=== PATIENT | male | born 1945 ===

== ENCOUNTER 2020-11-03 15:00 | Outpatient (RCR) | payer MEDICARE, SELFPAY ==
--- NOTE | 2020-10-04 15:10 | MHC.PT.EP ---
[facility] [place] [facility] [address] Alyce Johnson [address] [phone] F: [phone] F: [phone] F: [phone] F: [phone] Physical Therapy Plan of Care Date of Evaluation: 10/04/20 Diagnosis: B knee OA Assessment: 74 y/o male referred to PT with primary knee osteoarthritis L and R knee. He has had B knee pain for over one year and was dx with OA. Of note, he was diagnosed with prostate CA one year ago and just finished treatment one week ago. Pain is located B anterior knees. Pain and difficulty with walking, ascending/descending stairs, donning/doffing shoes. He lives at home alone in an apartment with stairs and elevator. His daughter helps with meals, production support supervisor, laundry, and appointments. She is his care proxy and present for evaluation and assists with interpreting. Examination shows decreased L knee AROM, decreased hip/core strength, mild quad lag with L SLR, hypomobile L patella mobility, and impaired gait pattern. Recommend PT 2x/week for 5 weeks to address impairments, implement HEP, and optimize functional mobility. Frequency and Duration: The patient will be seen 2x/week for 5 weeks Short Term Goals: 3 weeks: 1. I with HEP 2. Improve B knee flexion to 115 3. Improve L SLR to have no quad lag 10/10x Care Home Goals: 5 weeks: 1. I with HEP and self management of sx 2. Pt will be able to walk > 20min wiht LRAD 3. Pt will be able to don/doff shoes with pain < 3/10 Treatment Plan: Modalities to reduce pain, spasms and effusion. Manual therapy to restore motion and function. Therapeutic exercise to improve strength and flexibility. Neuromuscular re-education for posture and balance. Therapeutic activities to return to functional activities of daily living. Please sign and return to therapist. Thank you for your referral.
--- NOTE | 2020-11-03 15:48 | MHC.PT.DC ---
Physical Therapy Discharge Report Diagnosis: B knee OA Date of Evaluation: 10/04/20 Date of Discharge: 11/03/20 Treatments to Date: 8 Cancellations to Date: 0 No Shows to Date: 0 Discharge Status: Independent with HEP Discharge Summary: Pt reports he is ready for discharge and will continue to perform HEP. His L knee AROM is 0-5-107 and he had improved quad/HS strength now, however he continues to have difficulty with endurance - he is now able to walk 15 minutes but no more due to fatigue. He also continues to need assistance with don/doffing shoes per his daughter. He has an evaluation for a scooter next week in order to help him move better within the community and longer distances safely. No further questions and he is d/c to I HEP. Electronically signed by: Zoey Berry PT Please sign and return to therapist. Thank you for your referral.
== END 2020-11-03 16:04 | disposition other institution (70) ==
LOC: HO.PT 15:00
PROVIDERS: PCP Internal Medicine; Visit Provider Orthopaedic Surgery
DX: M17.0 Bilateral primary osteoarthritis of knee (principal)
CPT/HCPCS: 97110; 97162

== ENCOUNTER 2020-11-22 08:39 | Outpatient (REF) | payer MEDICARE, SELFPAY ==
--- NOTE | 2020-11-22 08:42 | CT_ITS ---
EXAMINATION: CT ABDOMEN AND PELVIS WITHOUT CONTRAST CLINICAL INFORMATION: Prostate cancer COMPARISON: Previous CT of the abdomen and pelvis most recent July 2020 TECHNIQUE: Multidetector volumetric imaging was performed from the superior aspect of the liver through the pubic symphysis. Sagittal and coronal reformatted images were obtained on the technologist's workstation. This CT examination was performed using dose optimization techniques as appropriate, variously including the following: *Automated exposure control *Adjustment of mA and/or kV according to patient size (this includes techniques or standardized protocols for targeted exams where dose is matched to indication/reason for exam; i.e. extremities or head) *Use of iterative reconstruction technique DLP: 705 mGy-cm FINDINGS: LUNG BASES: The visualized lung bases are unremarkable. LIVER, GALLBLADDER, AND BILIARY TREE: The liver is normal in size, shape, and attenuation. No focal hepatic lesion. There are gallstones in the gallbladder. There is no intra or extrahepatic biliary duct dilatation. There are 2 stones in the distal common bile duct largest measuring 3 x 5 mm. PANCREAS: There are atrophic changes or fatty infiltration of the head of the pancreas. The pancreas is otherwise unremarkable. SPLEEN: Unremarkable. ADRENAL GLANDS: Unremarkable. KIDNEYS AND URETERS: The kidneys are normal in size, shape, and attenuation. No hydronephrosis, hydroureter, or calculi seen. No perinephric stranding. BLADDER: Not optimally distended. There may be mild bladder wall thickening. GASTROINTESTINAL TRACT: There is mild diverticulosis of the colon. Small and large bowel is otherwise unremarkable. The appendix is unremarkable. The stomach is unremarkable. ABDOMINAL WALL: There is an umbilical hernia containing fat. LYMPH NODES: Normal. VASCULAR: Unremarkable. PELVIC VISCERA: There are radiation seeds in the prostate gland. OSSEOUS STRUCTURES: There are degenerative changes of the spine, sacroiliac joints and hip joints. CT/CT abdomen pelvis wo con IMPRESSION: Radiation seeds in the prostate gland. No lymphadenopathy. Gallstones and common bile duct stones. Mild diverticulosis of the colon.
== END 2020-11-22 08:40 | disposition home or self-care (01) ==
LOC: HO.CT 08:39
PROVIDERS: Visit Provider Urology
DX: C61 Malignant neoplasm of prostate (principal)
CPT/HCPCS: 74176

== ENCOUNTER → 2021-02-07 14:25 | Outpatient (BNVA) | payer MEDICARE, SELFPAY | PROVIDERS: PCP Internal Medicine; Visit Provider Nurse Practitioner | DX: K80.20 Calculus of gallbladder without cholecystitis without obstruction (principal); D12.6 Benign neoplasm of colon, unspecified | CPT/HCPCS: Q3014 ==

== ENCOUNTER 2021-03-24 10:05 | Day surgery (SDC) | payer MEDICARE, SELFPAY ==
[2021-03-15 08:37] VITALS: BMI 32.8
[2021-03-24 10:22] VITALS: BP 129/73; PULSE 85; RESP 18; TEMP 36.1; O2SAT 99
[2021-03-24 10:34] LABS: Glucose, Whole Blood 121 mg/dL (60-115)
--- NOTE | 2021-03-24 10:38 | P.CONAN_ITS ---
[facility] Active Problems Active Problems: All Active Problems (Updated 03/14/21 @ 15:08 by Jess hauser) DMII (diabetes mellitus, type 2) (Acute) Prostate cancer (Acute) Tubulovillous adenoma of colon (Acute) Gallstones (Acute) Pure hypercholesterolemia (Acute) Essential hypertension (Acute) Past Medical History Medical History Diabetes Essential hypertension History of prostate cancer Pure hypercholesterolemia Family History Family History Father Murder Mother No problems noted. Daughter Healthy adult Brother No problems noted. Sister No problems noted. Son No problems noted. Surgical History Surgical History History of colonoscopy Social History Social History Smoking Status: Never smoker Use of substances other than those prescribed or required for medical reasons: No Advance Directives: No Advance Directives Information Provided: Yes Meds Allergies Allergy/AdvReac Type Severity Reaction Status Date / Time No Known Allergies Allergy Verified 03/24/21 10:30 [No Known Allergies*] Exam Exam Date and Time: March 24, 2021 1038 Height,Weight and Vital Signs: Height 5 ft 8 in Weight 97.976 kg Last Vital Signs Temp 96.9 F 03/24/21 10:22 Pulse 85 03/24/21 10:22 Resp 18 03/24/21 10:22 BP 129/73 03/24/21 10:22 Pulse Ox 99 03/24/21 10:22 Pertinent Lab Results Pertinent Lab Results: Laboratory Tests 03/24/21 10:31 POC Glucose 121 H Airway Mallampati Class: II (Edentulous) TM Dist: >3cm Neck ROM: Full Denture: Upper and Lower Loose/Missing/Broken Teeth: Yes, Upper and Lower Heart: RRR Lungs: CTA Assessment and Plan Assessment Anesthesia Assessment: Anesthesia Plan Discussed and Chart Reviewed Final Anesthetic Review NPO: Yes ASA Class: II Final Preanesthetic Review: Meds/Allgs Chart Reviewed, Consent Obtained/Reviewed and Anes Risks/Benef Reviewed Patient Risk: Low Procedure Risk: Low Anesthetic Plan Anesthetic Plan: MAC: Disposition: Standard PACU
--- NOTE | 2021-03-24 11:18 | PM.OP ---
Brief Operative Note Date of Service: 03/24/21 Pre-op diagnosis: Colon cancer screening, history of colon polyps Post-op diagnosis: other (Colon polyp, diverticulosis, hemorrhoids, radiation proctitis) Procedure: COLONOSCOPY TO CECUM WITH SNARE POLYPECTOMY AND SUBMUCOSAL INJECTION Consent: Indications for the procedure and potential complications of bleeding, perforation, reaction to medications and missed diagnosis were discussed with the patient and informed consent was obtained. Instrument: Olympus PCF H 190 L variable stiffness pediatric colonoscope Monitoring: Vital signs and clinical assessment, intermittent blood pressure monitoring, continuous EKG monitoring, Pulse oximetry and Carbon Dioxide monitoring were done throughout the procedure. Colon withdrawl time was 17 minutes. Procedure: The patient was placed in the left lateral decubitis position and pre-procedure medications were administered. After a digital rectal examination of the ano-rectum, the video colonoscope was inserted into the rectum and advanced through the colon to the cecum. The colonoscope was slowly withdrawn in a retrograde panoramic fashion and the colon mucosa was carefully examined including a retroflexed view of the rectum. Findings and interventions are described below. Procedure Difficulty: Without difficulty Findings: Terminal Ileum: Not evaluated Cecum: A 10-12 mm sessile polyp raised with 4 cc of Orise solution (submucosal injection) and removed with a hot snare. 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 Plan: Await pathology results Patient has an appointment on 04/07/21 in the GI Clinic with Jackie Carroll NP . Repeat Colonoscopy interval based on path results - in 3 years if polyps are adenomatous and due to a history of adenomatous colon polyps. If pt develops rectal bleeding in the future, area of radiation proctitis can be treated with APC. Above findings were reviewed with the patient and colon polyps and diverticulosis handouts were given in the discharge area Surgeon: Henri San MD Anesthesia: MAC (Dr Monique) Pattern And Chain Maker: Jonathan Wilkins Estimated blood loss (mL): 0 Pathology: other (A- CECUM POLYP O-RISE USED.) Condition: stable Disposition: PACU
--- NOTE | 2021-03-24 11:18 | MHC.SHP ---
Pre-Procedural Eval Section A The patient is an INPATIENT: No The History & Physical has been completed within 30 days and I have reviewed it.: No Section B Chief Complaint: Tubulovillous Adenoma of Colon Details of Present Illness: Colon cancer screening, history of colon polyps Relevant Family History (Specify if Yes): No Relevant Social History: None Present Medications: see Short Stay Collaborative assessment Medical History: Significant History (Essential hypertension Pure hypercholesterolemia) History of Previous Operations: Relevant previous surgery/procedure and date(s) (Hx of colonoscopy) Allergies: Allergies Allergy/AdvReac Type Severity Reaction Status Date / Time No Known Allergies Allergy Verified 03/24/21 10:30 [No Known Allergies*] Review of Systems Sugical H&P ROS: Negative: Constitution, Cardiovascular, Respiratory and Gastrointestinal Exam Surgical H&P Exam: Normal: Heart, Normal: Lungs, Normal: Extremities and Normal: Abdomen Plan Diagnosis/Plan: Unchanged I have reviewed the history and physical and performed a pertinent physical examination on my patient. No changes have occurred unless specified.
[2021-03-24] MEDS: Lactated Ringers 1,000 ML 50 ML IV (11:33)
[2021-03-24 12:07] VITALS: BP 91/55; PULSE 73; RESP 18; TEMP 36.7; O2SAT 97
[2021-03-24 12:26] VITALS: BP 91/55; PULSE 64; RESP 16; TEMP 36.1; O2SAT 100
[2021-03-24 12:41] VITALS: BP 111/69; PULSE 72; RESP 18; O2SAT 97
== END 2021-03-24 13:00 | disposition home or self-care (01) ==
PROVIDERS: PCP Internal Medicine; Visit Provider Internal Medicine Gastroenterology
PROC: 0DJD8ZZ Inspection of Lower Intestinal Tract, Via Natural or Artificial Opening Endoscopic (ICD-10-PCS; CPT 45378; principal; 2021-03-24 11:00)
DX: Z12.11 Encounter for screening for malignant neoplasm of colon (principal); D12.0 Benign neoplasm of cecum; K57.30 Diverticulosis of large intestine without perforation or abscess without bleeding; K64.8 Other hemorrhoids; K62.7 Radiation proctitis; Y84.2 Radiological procedure and radiotherapy as the cause of abnormal reaction of the patient, or of later complication, without mention of misadventure at the time of the procedure; Z85.46 Personal history of malignant neoplasm of prostate; Z92.3 Personal history of irradiation; I10 Essential (primary) hypertension; E11.9 Type 2 diabetes mellitus without complications; Z79.84 Long term (current) use of oral hypoglycemic drugs; Z79.899 Other long term (current) drug therapy
CPT/HCPCS: 45385; 45381; 82947; 88305

== ENCOUNTER → 2021-04-07 13:24 | Outpatient (BNVA) | payer MEDICARE, SELFPAY | PROVIDERS: PCP Internal Medicine; Referring Provider Internal Medicine; Visit Provider Nurse Practitioner | DX: D12.6 Benign neoplasm of colon, unspecified (principal); K80.20 Calculus of gallbladder without cholecystitis without obstruction | CPT/HCPCS: 99212 ==

== ENCOUNTER → 2021-05-25 15:25 | Outpatient (BNVA) | payer MEDICARE, SELFPAY | PROVIDERS: Visit Provider Nurse Practitioner | DX: D12.6 Benign neoplasm of colon, unspecified (principal); K80.20 Calculus of gallbladder without cholecystitis without obstruction; K64.9 Unspecified hemorrhoids | CPT/HCPCS: 99202 ==

== ENCOUNTER → 2021-06-16 15:45 | Outpatient (BNVA) | payer MEDICARE, SELFPAY | PROVIDERS: Visit Provider Nurse Practitioner | DX: K64.9 Unspecified hemorrhoids (principal); K80.20 Calculus of gallbladder without cholecystitis without obstruction; D12.6 Benign neoplasm of colon, unspecified; Z79.899 Other long term (current) drug therapy | CPT/HCPCS: Q3014 ==

== ENCOUNTER → 2021-07-14 13:46 | Outpatient (BNVA) | payer MEDICARE, SELFPAY | PROVIDERS: PCP Internal Medicine; Visit Provider Urology | DX: C61 Malignant neoplasm of prostate (principal) | CPT/HCPCS: 99212 ==

== ENCOUNTER 2021-10-04 06:44 | Outpatient (REF) | payer MEDICARE, SELFPAY ==
[2021-10-04 08:20] LABS: Alanine Aminotransferase 37 U/L (0-40); Albumin Level 4.2 g/dL (3.5-5.0); Alkaline Phosphatase 79 U/L (39-117); Anion Gap 14 (12-20); Aspartate Amino Transferase 31 U/L (5-37); Bilirubin Total 1.3 mg/dL (0.0-1.0); Blood Urea Nitrogen 29 mg/dL (9-16); Calcium 9.4 mg/dL (8.4-10.2); Carbon Dioxide 23 mmol/L (22-29); Chloride 104 mmol/L (96-108); Cholesterol 185 mg/dL; Estimated Glomerular Filt Rate > 60; Glucose Fasting 196 mg/dL (60-99); HDL Cholesterol 58 mg/dL; LDL Cholesterol Calculated 111 mg/dl; Potassium 4.4 mmol/L (3.3-5.1); Sodium 137 mmol/L (135-145); Total Protein 7.4 g/dL (6.5-8.0); Triglycerides 82 mg/dL
[2021-10-04 09:38] LABS: Creatinine Urine 70.76 mg/dL; Microalbum/Creatinine Ratio Ur 8.4 ug/mg cr
[2021-10-04 09:52] LABS: Prostate Specific Antigen < 0.05 ng/mL (<0.05-4.0)
[2021-10-09 01:41] LABS: Testosterone, Total 183 ng/dL (250-1100)
[2021-10-09 14:21] LABS: Vitamin D 25-OH, D2 <4 ng/mL; Vitamin D 25-OH, D3 21 ng/mL; Vitamin D 25-OH, Total 21 ng/mL (30-100)
== END 2021-10-04 06:45 | disposition home or self-care (01) ==
LOC: HO.LAB 06:44
PROVIDERS: Absent Provider Urology; PCP Internal Medicine; Visit Provider Internal Medicine
DX: Z12.5 Encounter for screening for malignant neoplasm of prostate (principal); C61 Malignant neoplasm of prostate; E78.5 Hyperlipidemia, unspecified; E11.65 Type 2 diabetes mellitus with hyperglycemia; E55.9 Vitamin D deficiency, unspecified
CPT/HCPCS: 36415; 80053; 80061; 82043; 82306; 84153; 84403

== ENCOUNTER → 2021-10-13 14:47 | Outpatient (BNVA) | payer MEDICARE, SELFPAY | PROVIDERS: PCP Internal Medicine; Visit Provider Urology | DX: C61 Malignant neoplasm of prostate (principal) | CPT/HCPCS: 99212 ==

== ENCOUNTER 2022-02-12 07:43 | Outpatient (REF) | payer MEDICARE, SELFPAY ==
[2022-02-12 09:04] LABS: Alanine Aminotransferase 26 U/L (0-40); Albumin Level 4.1 g/dL (3.5-5.0); Alkaline Phosphatase 76 U/L (39-117); Anion Gap 14 (12-20); Aspartate Amino Transferase 27 U/L (5-37); Bilirubin Total 1.3 mg/dL (0.0-1.0); Blood Urea Nitrogen 21 mg/dL (9-16); Calcium 9.7 mg/dL (8.4-10.2); Carbon Dioxide 25 mmol/L (22-29); Chloride 105 mmol/L (96-108); Cholesterol 140 mg/dL; Estimated Glomerular Filt Rate > 60; Glucose Fasting 186 mg/dL (60-99); HDL Cholesterol 55 mg/dL; LDL Cholesterol Calculated 70 mg/dl; Potassium 4.9 mmol/L (3.3-5.1); Sodium 139 mmol/L (135-145); Total Protein 7.4 g/dL (6.5-8.0); Triglycerides 76 mg/dL
[2022-02-12 09:28] LABS: Prostate Specific Antigen < 0.05 ng/mL (<0.05-4.0)
[2022-02-12 11:29] LABS: Creatinine Urine 68.63 mg/dL; Microalbumin Urine < 5.0 mg/L
[2022-02-16 19:36] LABS: Testosterone, Total 155 ng/dL (250-1100)
== END 2022-02-12 07:44 | disposition home or self-care (01) ==
LOC: HO.LAB 07:43
PROVIDERS: PCP Internal Medicine; Visit Provider Urology
DX: E11.65 Type 2 diabetes mellitus with hyperglycemia (principal); E78.5 Hyperlipidemia, unspecified; C61 Malignant neoplasm of prostate; Z12.5 Encounter for screening for malignant neoplasm of prostate
CPT/HCPCS: 36415; 80053; 80061; 82043; 84153; 84403

== ENCOUNTER → 2022-02-16 14:03 | Outpatient (BNVA) | payer MEDICARE, SELFPAY | PROVIDERS: PCP Internal Medicine; Visit Provider Urology | DX: Z13.89 Encounter for screening for other disorder (principal) | CPT/HCPCS: Q3014 ==

== ENCOUNTER 2022-03-01 01:07 | Emergency (ER) | payer OTHER, SELFPAY ==
--- NOTE | ~2022-03-01 | CT_ITS ---
EXAMINATION: CT ANGIOGRAM NECK AND HEAD CLINICAL INFORMATION: Right-sided arm pain, numbness COMPARISON: None. TECHNIQUE: Initial noncontrast head CT was performed. Test bolus sequences followed by intravenous administration 70 mL of Omnipaque 350. Helical imaging was performed in the axial plane from the thoracic inlet to the skull vertex. Delayed postcontrast imaging of the head was also performed. The data was processed at the biochemistry technologist's workstation for generation of MIP sequences. Angled MIPs and volume rendered reformatted images were also generated at an offline 3D workstation. Stenoses are assessed in accordance with NASCET criteria unless otherwise indicated. DOSE LOWERING TECHNIQUES: This CT examination was performed using dose optimization techniques as appropriate, variously including the following: - Automated exposure control - Adjustment of mA and/or kV according to patient size (this includes techniques or standardized protocols for targeted exams were dose is matched to indication/reason for exam; i.e. extremities or head) - Use of iterative reconstruction technique DLP: 23 1 mGy-cm FINDINGS: Neck CTA: There is a classic 3 vessel branching pattern of the aortic arch. Normal appearance of the visualized aortic arch and proximal branches. No evidence of stenosis at the branch origins. Both vertebral arteries are widely patent throughout their extracranial cervical course. Normal appearance of the common and internal carotid arteries without focal stenosis. Brain CTA: Normal appearance of the intradural vertebral arteries. Normal appearance of the basilar and superior cerebellar arteries. Normally opacified posterior cerebral arteries bilaterally. Normal appearance of the intradural internal carotid arteries without focal stenosis. Normal appearance of the anterior cerebral and middle cerebral arteries without focal occlusion or stenosis. Normal anterior communicating artery. Normal arborization of the middle cerebral arteries. CT Head: No intracranial mass, hemorrhage, extra-axial collection, or midline shift. The giron-white matter differentiation is preserved. There is mild periventricular white matter hypoattenuation consistent with chronic small vessel ischemic disease. Mild volume loss is noted. No pathologic intra-axial enhancement or regional oligemia. No hydrocephalus. Partially opacified right mastoid air cells. The visualized portions of the paranasal sinuses are well-aerated. CT Neck: The thyroid gland and remaining cervical soft tissues are normal in appearance. There is prominent degenerative change at the atlantodens articulation. Mild scattered endplate osteophytes are present in the cervical spine. Upper Chest: No abnormalities in the visualized lung apices or upper mediastinum. CT/CT angio head neck IMPRESSION: 1. No hemodynamically significant stenosis in the major arteries of the neck. No large vessel occlusion or significant stenosis in the intracranial circulation. 2. Mild chronic intracranial small vessel ischemic disease and volume loss.
[2022-03-01 01:14] VITALS: BP 129/67; PULSE 70; RESP 16; TEMP 36.3; O2SAT 96; BMI 34.4
--- NOTE | 2022-03-01 01:28 | PC.NURSE ---
provider into assess pt. pt placed on monitor, poc taken. pt a&o and able to respond questions appropriately during examination.
--- NOTE | 2022-03-01 01:33 | ECG_ITS ---
Test Reason : ARM TINGLING Blood Pressure : / mmHG Vent. Rate : 071 BPM Atrial Rate : 071 BPM P-R Int : 190 ms QRS Dur : 130 ms QT Int : 418 ms P-R-T Axes : 037 -31 030 degrees QTc Int : 454 ms Normal sinus rhythm Left axis deviation Right bundle branch block Abnormal ECG When compared with ECG of 13-AUG-2020 21:57, No significant change was found Referred By: Alla Stewart Electronically Signed By:GAYATHRI CHOE MD
[2022-03-01 01:37] LABS: Glucose, Whole Blood 219 mg/dL (60-115)
[2022-03-01 01:48] LABS: MANUAL DIFF FLAG NO
--- NOTE | 2022-03-01 01:49 | ED.EXTPRO ---
HPI - Extremity Problem General Chief complaint: Extremity Problem Stated complaint: R arm & back pain Time Seen by Provider: 03/01/22 01:33 Source: patient, family and interpreter for the deaf Mode of arrival: ambulatory Limitations: no limitations History of Present Illness MD Complaint: extremity pain Onset (ago): hour(s) (started around 10pm) Pain Consistency: constant Location: left and upper extremity Quality: aching, dull and constant Radiation: none Relieving factors: nothing Exacerbating factors: range of motion and palpation Associated symptoms: other (states he has pain and tingling) Context: other (denies known trauma) Related Data Previous Rx's Medication Instructions Recorded blood-glucose meter (FreeStyle #1 ea 01/16/21 Lite Meter) hydrocortisone 2.5 % topical cream 1 appl VT BID 30 Days #30 g 05/25/21 with perineal applicator (Proctosol HC) metformin 1,000 mg tablet 1,000 mg PO BID #56 tab 08/10/21 lisinopril 5 mg tablet 5 mg PO DAILY 90 Days #90 tab 09/07/21 atorvastatin 10 mg tablet 10 mg PO DAILY #90 tab 11/02/21 linagliptin 5 mg tablet (Tradjenta) 5 mg PO DAILY 90 Days #90 tab 11/02/21 blood sugar diagnostic (FreeStyle 1 strip MISCELLANEOUS TID #100 12/05/21 Lite Strips) strip cholecalciferol (vitamin D3) 25 25 mcg PO DAILY 90 Days #90 cap 12/05/21 mcg (1,000 unit) capsule lancets 28 gauge (FreeStyle #100 ea 12/05/21 Lancets) furosemide 20 mg tablet 20 mg PO Q OTHER DAY 90 Days #45 12/28/21 tab gabapentin 100 mg capsule 100 mg PO DAILY #28 cap 12/28/21 finasteride 5 mg tablet 5 mg PO DAILY 90 Days #90 tab 01/10/22 empagliflozin 25 mg tablet 25 mg PO QAM 90 Days #90 tab 02/22/22 (Jardiance) sitagliptin 100 mg tablet (Januvia) 100 mg PO DAILY #28 tab 02/22/22 hydrocodone 5 mg-acetaminophen 325 1 tab PO Q6H PRN #10 tab 03/01/22 mg tablet lidocaine 5 % topical patch 1 patch TOPICAL DAILY PRN #15 ea 03/01/22 Allergies Allergy/AdvReac Type Severity Reaction Status Date / Time No Known Allergies Allergy Verified 02/16/22 14:03 [No Known Allergies*] Review of Systems Review of Systems: Constitutional : No Fever, No Chills ENT/Mouth : No Ear Pain, No Hoarseness, No sore throat Eyes: No Eye Pain, No Swelling, No Redness, No Foreign Body Cardiovascular : No Chest Pain, No SOB Respiratory : No Cough, No Dyspnea Gastrointestinal : No Nausea, No Vomiting, No Diarrhea, No abdominal Pain Genitourinary : No Dysuria, No Hematuria Musculoskeletal : positive joint pain, pos Myalgias, No Joint Swelling Skin : No Skin lacerations, No rash Neuro : No Weakness, No Numbness, No Loss of Consciousness, No Dizziness, No Headache Psych : No Anxiety/Panic, No Depression Heme/Lymph: no easy bruising, no Lymphadenopathy Endocrine : No Polyuria, No Polydipsia All other systems reviewed and are negative [facility] Past Medical History Medical History Diabetes Essential hypertension History of prostate cancer Hypovitaminosis D Pure hypercholesterolemia Surgical History History of colonoscopy Family History Family History Father Murder Mother No problems noted. Daughter Healthy adult Brother No problems noted. Sister No problems noted. Son No problems noted. Social History Social History Household Members: None Housing: Apartment Alcohol intake: never Patient Tobacco Use Status: Never used Tobacco e-Cigarette/Vaping Use: Never Used Second Hand Smoke Exposure: No Advance Directives: No Advance Directives Information Provided: No service: No Current occupational status: retired Physical Exam Vital Signs: Vital Signs: Last Vital Signs Temp 97.4 F 03/01/22 01:14 Pulse 70 03/01/22 01:14 Resp 12 03/01/22 02:02 BP 129/67 03/01/22 01:14 Pulse Ox 96 03/01/22 01:14 BMI result Body Mass Index 34.4 Appearance: Alert. Oriented X3. No acute distress. Eyes: Pupils equal, round and reactive to light. ENT: Pharynx normal. Neck: Normal inspection. Neck supple. + spurling's maneuver with sig grimace and reproduction of pain on R side CVS: Normal heart rate and rhythm. Pulses normal. Respiratory: No respiratory distress. Breath sounds normal. Abdomen: Soft and non-tender. Skin: Skin warm and dry. Normal skin color. Normal skin turgor. Extremities: No lower extremity edema. RUE sensation intact radial pulse 2+ BCR in all digits no swelling noted, reports pain from shoulder down to forearm- cannot abduct arm from resistance Neuro: Oriented X 3. No motor deficit. No sensory deficit. no drift NIH Stroke Scale Internal: Initial- Upon Arrival Level of Consciousness: Alert Level of Consciousness Questions: Answers both questions correctly Level of Consciousness Commands: Performs both tasks correctly Best Gaze: Normal Visual: No visual loss Facial Palsy: Normal Motor Arm (Right): No drift Motor Arm (Left): No drift Motor Leg (Right): No drift Motor Leg (Left): No drift Limb Ataxia: Absent Sensory: Normal Best Language: No aphasia Dysarthia: Normal Extinction and Inattention: No abnormality Score: 0 Course Course Course Narrative: R arm pain with + spurling's maneuver on exam R sided ? cervical radiculopathy. Noted tingling and pain to outsole beveler he denied this to me initially with PA who speaks Portuguese - when prompted by outsole beveler about tingling he stated oh both pain and tingling at this time his NIH score is O his severity and scoring is too low to make him a candidate for tPa negative workup with CTA labs stable feels better can be DC home MDM - Extremity (Nontraumatic) MDM Narrative Medical decision making narrative: 76 yo male with DM, HTN, HPL, prostate cancer - treated here with c/o R arm pain worse with movements denies overuse or trauma. Initially brought back has RN stated it was tingling but this is likely MSK or cervical radiculopathy. He has normal neurologic exam. Distal findings on exam - cannot abduct arm against resistance due to pain, has spurling maneuver + will obtain labs, IV morphine for pain, EKG, CTA head/neck though low suspicion for stroke to look at cervical spine area. Dispo per results and findings. Lab Data Result diagrams: 03/01/22 01:40 03/01/22 01:40 Labs: Lab Results 03/01/22 03/01/22 03/01/22 Range/Units 01:32 01:40 01:40 WBC 8.9 (4.8-10.8) X10*3/uL RBC 4.61 (4.60-5.80) X10*6/uL Hgb 14.0 (14.0-18.0) g/dl Hct 42.4 (42.0-52.0) % MCV 92.0 (80.0-98.0) fL MCH 30.4 (27.0-33.0) pg MCHC 33.0 (31.0-36.0) g/dl RDW 14.6 (11.0-16.0) % Plt Count 197 (160-400) X10*3/uL MPV 9.9 (9.4-12.4) fL Immature Gran % (Auto) 0.2 (0.0-0.4) % Neut % (Auto) 74.5 H (45-73) % Lymph % (Auto) 14.0 L (20-40) % [place] % (Auto) 8.5 (2-11) % Eos % (Auto) 2.7 (0-4) % Baso % (Auto) 0.1 (0-2) % Lymph # (Auto) 1.2 (1.2-4.9) X10*3/uL [place] # (Auto) 0.8 (0.1-1.2) X10*3/uL Eos # (Auto) 0.2 (0.0-0.4) X10*3/uL Baso # (Auto) 0.0 (0.0-0.2) X10*3/uL Abs Immat Gran (auto) 0.02 (0.00-0.03) X10*3/uL Absolute Neuts (auto) 6.6 (2.0-8.3) x10*3/uL Absolute Nucleated RBC 0.000 (0.0-0.012) X10*3/uL Nucleated RBC % (auto) 0.0 (0.0-0.2) /100WBC PT (9.9-13.0) SEC INR (0.9-1.1) Sodium 139 (135-145) mmol/L Potassium 4.5 (3.3-5.1) mmol/L Chloride 106 (96-108) mmol/L Carbon Dioxide 25 (22-29) mmol/L Anion Gap 13 (12-20) BUN 23 H (9-16) mg/dL Creatinine 1.13 (0.5-1.4) mg/dL Estim Creat Clear Calc 64.5 Estimated GFR > 60 POC Glucose 219 H (60-115) mg/dL Random Glucose 227 H (60-115) mg/dL Calcium 9.3 (8.4-10.2) mg/dL Magnesium 2.3 (1.6-2.6) mg/dL Total Bilirubin 1.0 (0.0-1.0) mg/dL Direct Bilirubin 0.4 (0.0-0.5) mg/dL AST 36 (5-37) U/L ALT 32 (0-40) U/L Alkaline Phosphatase 74 (39-117) U/L Troponin I High Sens (<3.5-35.0) ng/L Total Protein 6.8 (6.5-8.0) g/dL Albumin 3.8 (3.5-5.0) g/dL 03/01/22 03/01/22 Range/Units 01:40 01:40 WBC (4.8-10.8) X10*3/uL RBC (4.60-5.80) X10*6/uL Hgb (14.0-18.0) g/dl Hct (42.0-52.0) % MCV (80.0-98.0) fL MCH (27.0-33.0) pg MCHC (31.0-36.0) g/dl RDW (11.0-16.0) % Plt Count (160-400) X10*3/uL MPV (9.4-12.4) fL Immature Gran % (Auto) (0.0-0.4) % Neut % (Auto) (45-73) % Lymph % (Auto) (20-40) % [place] % (Auto) (2-11) % Eos % (Auto) (0-4) % Baso % (Auto) (0-2) % Lymph # (Auto) (1.2-4.9) X10*3/uL [place] # (Auto) (0.1-1.2) X10*3/uL Eos # (Auto) (0.0-0.4) X10*3/uL Baso # (Auto) (0.0-0.2) X10*3/uL Abs Immat Gran (auto) (0.00-0.03) X10*3/uL Absolute Neuts (auto) (2.0-8.3) x10*3/uL Absolute Nucleated RBC (0.0-0.012) X10*3/uL Nucleated RBC % (auto) (0.0-0.2) /100WBC PT 11.2 (9.9-13.0) SEC INR 1.0 (0.9-1.1) Sodium (135-145) mmol/L Potassium (3.3-5.1) mmol/L Chloride (96-108) mmol/L Carbon Dioxide (22-29) mmol/L Anion Gap (12-20) BUN (9-16) mg/dL Creatinine (0.5-1.4) mg/dL Estim Creat Clear Calc Estimated GFR POC Glucose (60-115) mg/dL Random Glucose (60-115) mg/dL Calcium (8.4-10.2) mg/dL Magnesium (1.6-2.6) mg/dL Total Bilirubin (0.0-1.0) mg/dL Direct Bilirubin (0.0-0.5) mg/dL AST (5-37) U/L ALT (0-40) U/L Alkaline Phosphatase (39-117) U/L Troponin I High Sens < 3.5 (<3.5-35.0) ng/L Total Protein (6.5-8.0) g/dL Albumin (3.5-5.0) g/dL ECG Data Attestation EKG: I personally reviewed and interpreted this ECG as follows: ECG interpretation date: 03/01/22 ECG interpretation time: 01:53 Interpretation: Rate: 71 Rhythm: NSR [place]: left Normal P waves. Normal JOSE CARLOS. Normal QRS complex. ST T wave : normal no DOMINGO qTC: normal prior studies: unchanged from prior The study has been interpreted contemporaneously by me. Discharge Plan Discharge Clinical Impression: Arm pain, Cervical radiculopathy Patient Disposition: Home, Self-Care Instructions: Cervical Radiculopathy (ED), Arm Pain (ED) Additional Instructions: return to ED for any worsening symptoms or concerns Prescriptions: New hydrocodone-acetaminophen 5-325 mg tablet 1 tab PO Q6H PRN (Reason: pain) Qty: 10 0RF lidocaine 5 % adhesive patch,medicated 1 patch topical DAILY PRN (Reason: pain) Qty: 15 0RF Rx Instructions: leave on most painful area for up to 12 hrs No Action (DME) blood-glucose meter [FreeStyle Lite Meter] Kit See Rx Instructions .ROUTE .MEDSUPPLY Qty: 1 0RF Rx Instructions: As directed metformin 1,000 mg tablet 1,000 mg PO BID Qty: 56 11RF lisinopril 5 mg tablet 5 mg PO DAILY 90 Days Qty: 90 3RF atorvastatin 10 mg tablet 10 mg PO DAILY Qty: 90 3RF Tradjenta 5 mg tablet 5 mg PO DAILY 90 Days Qty: 90 1RF furosemide 20 mg tablet 20 mg PO Q OTHER DAY 90 Days Qty: 45 2RF gabapentin 100 mg capsule 100 mg PO DAILY Qty: 28 6RF finasteride 5 mg tablet 5 mg PO DAILY 90 Days Qty: 90 1RF Jardiance 25 mg tablet 25 mg PO QAM 90 Days Qty: 90 3RF Januvia 100 mg tablet 100 mg PO DAILY Qty: 28 6RF cholecalciferol (vitamin D3) 25 mcg (1,000 unit) capsule 25 mcg PO DAILY 90 Days Qty: 90 3RF FreeStyle Lite Strips Strip 1 strip miscellaneous TID Qty: 100 3RF (DME) lancets [FreeStyle Lancets] 28 gauge misc See Rx Instructions .ROUTE .MEDSUPPLY Qty: 100 11RF Rx Instructions: Use 1 lancet three times a day hydrocortisone [Proctosol HC] 2.5 % cream with perineal applicator 1 appl VT BID 30 Days Qty: 30 3RF Referrals: Faith Small MD [Primary Care Provider] - 2 days (if not better) Print Language: Portuguese
[2022-03-01 01:50] LABS: Basophils Percent Auto 0.1 % (0-2); Eosinophils Absolute Auto 0.2 X10*3/uL (0.0-0.4); Eosinophils Percent Auto 2.7 % (0-4); Hematocrit 42.4 % (42.0-52.0); Imm Gran Abs Auto 0.02 X10*3/uL (0.00-0.03); Imm Gran Pct Auto 0.2 % (0.0-0.4); Lymphocytes Absolute Auto 1.2 X10*3/uL (1.2-4.9); Mean Corpuscular Hemoglobin 30.4 pg (27.0-33.0); Mean Platelet Volume 9.9 fL (9.4-12.4); Monocytes Absolute Auto 0.8 X10*3/uL (0.1-1.2); Monocytes Percent Auto 8.5 % (2-11); Neutrophils Absolute Auto 6.6 x10*3/uL (2.0-8.3); Neutrophils Percent Auto 74.5 % (45-73); Platelet Count 197 X10*3/uL (160-400); Red Blood Count 4.61 X10*6/uL (4.60-5.80); Red Cell Distribution Width 14.6 % (11.0-16.0); White Blood Count 8.9 X10*3/uL (4.8-10.8)
[2022-03-01 01:55] LABS: Prothrombin Time 11.2 SEC (9.9-13.0)
[2022-03-01 02:02] VITALS: RESP 12
[2022-03-01] MEDS: Morphine Sulfate 4 MG/ML CARTRIDGE IVPUSH (02:02)
[2022-03-01] MEDS: ondansetron HCL 4 MG/2 ML VIAL IVPUSH (02:02)
[2022-03-01 02:05] LABS: Alanine Aminotransferase 32 U/L (0-40); Albumin Level 3.8 g/dL (3.5-5.0); Alkaline Phosphatase 74 U/L (39-117); Anion Gap 13 (12-20); Aspartate Amino Transferase 36 U/L (5-37); Bilirubin Direct 0.4 mg/dL (0.0-0.5); Blood Urea Nitrogen 23 mg/dL (9-16); Calcium 9.3 mg/dL (8.4-10.2); Carbon Dioxide 25 mmol/L (22-29); Chloride 106 mmol/L (96-108); Creatinine Clr Calc Pharmacy 64.5; Estimated Glomerular Filt Rate > 60; Glucose Random 227 mg/dL (60-115); Magnesium 2.3 mg/dL (1.6-2.6); Potassium 4.5 mmol/L (3.3-5.1); Sodium 139 mmol/L (135-145); Total Protein 6.8 g/dL (6.5-8.0)
[2022-03-01 02:11] LABS: Troponin-I High Sensitivity < 3.5 ng/L (<3.5-35.0)
[2022-03-01] MEDS: iohexoL 350 MG/ML 100 ML INFUS..BTL 70 ML IV (02:51)
[2022-03-01 03:47] LABS: COVID-19 Test Negative (Negative)
[2022-03-01 03:59] VITALS: BP 106/63; PULSE 55; RESP 20; O2SAT 93
== END 2022-03-01 04:23 | disposition home or self-care (01) ==
PROVIDERS: Emergency Provider Emergency Medicine; PCP Internal Medicine
DX: M79.601 Pain in right arm (principal); M54.12 Radiculopathy, cervical region; E11.9 Type 2 diabetes mellitus without complications; I10 Essential (primary) hypertension; E78.00 Pure hypercholesterolemia, unspecified; Z85.46 Personal history of malignant neoplasm of prostate; Z79.02 Long term (current) use of antithrombotics/antiplatelets; Z79.899 Other long term (current) drug therapy
CPT/HCPCS: 36415; 70496; 70498; 80048; 80076; 82947; 83735; 84484; 85025; 85610; 87635; 93005; 96374; 96375; 99284; J2270; J2405; Q9967

== ENCOUNTER 2022-05-31 09:43 | Outpatient (REF) | payer OTHER, SELFPAY ==
[2022-05-31 11:11] LABS: Alanine Aminotransferase 36 U/L (0-40); Albumin Level 4.1 g/dL (3.5-5.0); Alkaline Phosphatase 80 U/L (39-117); Anion Gap 11 (12-20); Aspartate Amino Transferase 26 U/L (5-37); Bilirubin Total 1.4 mg/dL (0.0-1.0); Blood Urea Nitrogen 26 mg/dL (9-16); Calcium 9.5 mg/dL (8.4-10.2); Carbon Dioxide 26 mmol/L (22-29); Chloride 108 mmol/L (96-108); Cholesterol 148 mg/dL; Estimated Glomerular Filt Rate > 60; Glucose Fasting 175 mg/dL (60-99); HDL Cholesterol 52 mg/dL; LDL Cholesterol Calculated 79 mg/dl; Potassium 4.8 mmol/L (3.3-5.1); Sodium 140 mmol/L (135-145); Total Protein 7.3 g/dL (6.5-8.0); Triglycerides 86 mg/dL
[2022-05-31 11:21] LABS: Vitamin D 25-OH Total 25.1 ng/mL (>30)
[2022-05-31 11:32] LABS: Prostate Specific Antigen < 0.05 ng/mL (<0.05-4.0)
[2022-05-31 12:52] LABS: Creatinine Urine 59.06 mg/dL; Microalbum/Creatinine Ratio Ur 10.1 ug/mg cr
== END 2022-05-31 09:44 | disposition home or self-care (01) ==
LOC: HO.LAB 09:43
PROVIDERS: Absent Provider Internal Medicine; PCP Internal Medicine; Visit Provider Urology
DX: Z12.5 Encounter for screening for malignant neoplasm of prostate (principal); C61 Malignant neoplasm of prostate; E78.5 Hyperlipidemia, unspecified; E55.9 Vitamin D deficiency, unspecified; E11.65 Type 2 diabetes mellitus with hyperglycemia
CPT/HCPCS: 36415; 80053; 80061; 82043; 82306; 84153

== ENCOUNTER → 2022-06-19 14:33 | Outpatient (BNVA) | payer OTHER, SELFPAY | PROVIDERS: PCP Internal Medicine; Visit Provider Urology | DX: C61 Malignant neoplasm of prostate (principal) | CPT/HCPCS: 99212 ==

== ENCOUNTER → 2022-06-20 14:25 | Outpatient (BNVA) | payer OTHER, SELFPAY | PROVIDERS: PCP Internal Medicine; Visit Provider Nurse Practitioner | DX: K64.9 Unspecified hemorrhoids (principal); K59.04 Chronic idiopathic constipation; K80.20 Calculus of gallbladder without cholecystitis without obstruction | CPT/HCPCS: 99212 ==

== ENCOUNTER → 2022-08-31 07:51 | Outpatient (BNVA) | payer OTHER, SELFPAY | PROVIDERS: PCP Internal Medicine; Visit Provider Internal Medicine Endocrinology, Diabetes & Metabolism | DX: E11.65 Type 2 diabetes mellitus with hyperglycemia (principal) | CPT/HCPCS: 82947; 83036; 99202 ==

== ENCOUNTER → 2022-09-17 14:41 | Outpatient (BNVA) | payer OTHER, SELFPAY | PROVIDERS: PCP Internal Medicine; Visit Provider Registered Nurse Diabetes Educator | DX: E11.65 Type 2 diabetes mellitus with hyperglycemia (principal); Z79.4 Long term (current) use of insulin | CPT/HCPCS: 99211 ==

== ENCOUNTER → 2022-10-01 09:00 | Outpatient (BNVA) | payer OTHER, SELFPAY | PROVIDERS: PCP Internal Medicine; Visit Provider Registered Nurse Diabetes Educator | DX: E11.65 Type 2 diabetes mellitus with hyperglycemia (principal) | CPT/HCPCS: 99211 ==

== ENCOUNTER → 2022-11-05 08:23 | Outpatient (BNVA) | payer OTHER, SELFPAY | PROVIDERS: PCP Internal Medicine; Visit Provider Registered Nurse Diabetes Educator | DX: E11.65 Type 2 diabetes mellitus with hyperglycemia (principal); Z79.4 Long term (current) use of insulin | CPT/HCPCS: 99211 ==

== ENCOUNTER → 2022-11-30 15:49 | Outpatient (BNVA) | payer OTHER, SELFPAY | PROVIDERS: PCP Internal Medicine; Visit Provider Internal Medicine Endocrinology, Diabetes & Metabolism | DX: E11.65 Type 2 diabetes mellitus with hyperglycemia (principal) | CPT/HCPCS: 82947; 99212 ==

== ENCOUNTER 2022-12-18 08:39 | Outpatient (REF) | payer OTHER, SELFPAY ==
[2022-12-18 10:17] LABS: Microalbum/Creatinine Ratio Ur 11.7 ug/mg cr
[2022-12-18 10:25] LABS: Alanine Aminotransferase 47 U/L (0-40); Albumin Level 4.1 g/dL (3.5-5.0); Anion Gap 13 (12-20); Aspartate Amino Transferase 40 U/L (5-37); Bilirubin Total 1.4 mg/dL (0.0-1.0); Blood Urea Nitrogen 18 mg/dL (9-16); Calcium 9.5 mg/dL (8.4-10.2); Carbon Dioxide 25 mmol/L (22-29); Chloride 107 mmol/L (96-108); Cholesterol 175 mg/dL; Estimated Glomerular Filt Rate > 60; Glucose Fasting 192 mg/dL (60-99); HDL Cholesterol 48 mg/dL; LDL Cholesterol Calculated 106 mg/dl; Potassium 4.3 mmol/L (3.3-5.1); Sodium 141 mmol/L (135-145); Total Protein 7.1 g/dL (6.5-8.0); Triglycerides 108 mg/dL
[2022-12-18 10:26] LABS: Alkaline Phosphatase 90 U/L (39-117)
[2022-12-18 10:47] LABS: Vitamin D 25-OH Total 26.9 ng/mL (>30)
[2022-12-18 10:50] LABS: Prostate Specific Antigen < 0.10 ng/mL (<0.05-4.0)
== END 2022-12-18 08:40 | disposition home or self-care (01) ==
LOC: HO.LAB 08:39
PROVIDERS: PCP Internal Medicine; Visit Provider Urology
DX: Z12.5 Encounter for screening for malignant neoplasm of prostate (principal); C61 Malignant neoplasm of prostate; E11.9 Type 2 diabetes mellitus without complications; E78.5 Hyperlipidemia, unspecified; E55.9 Vitamin D deficiency, unspecified
CPT/HCPCS: 36415; 80053; 80061; 82043; 82306; 84153

== ENCOUNTER → 2022-12-19 14:45 | Outpatient (BNVA) | payer OTHER, SELFPAY | PROVIDERS: PCP Internal Medicine; Visit Provider Urology | DX: C61 Malignant neoplasm of prostate (principal) | CPT/HCPCS: Q3014 ==

== ENCOUNTER → 2022-12-24 12:51 | Outpatient (BNVA) | payer OTHER, SELFPAY | PROVIDERS: PCP Internal Medicine; Visit Provider Dietitian, Registered | DX: E11.65 Type 2 diabetes mellitus with hyperglycemia (principal); Z71.3 Dietary counseling and surveillance | CPT/HCPCS: 97802 ==

== ENCOUNTER → 2023-03-13 09:56 | Outpatient (BNVA) | payer OTHER, SELFPAY | PROVIDERS: PCP Internal Medicine; Visit Provider Internal Medicine Endocrinology, Diabetes & Metabolism | DX: E11.65 Type 2 diabetes mellitus with hyperglycemia (principal) | CPT/HCPCS: 82947; 83036; 99212 ==

== ENCOUNTER 2023-04-05 10:17 | Outpatient (REF) | payer OTHER, SELFPAY ==
--- NOTE | ~2023-04-05 | US_ITS ---
EXAMINATION: US ABDOMEN COMPLETE CLINICAL INFORMATION: Elevation of levels of liver transaminase levels. COMPARISON: CT abdomen and pelvis 11/22/2020. Ultrasound abdomen 01/25/2020. Renal ultrasound with bladder 08/04/2019. TECHNIQUE: Real-time imaging of the abdominal viscera. Technically difficult study secondary to bowel gas and body habitus. FINDINGS: PANCREAS: The head and body appear normal. The tail is obscured by bowel gas. ABDOMINAL AORTA: Limited visualization without aneurysm. INFERIOR VENA CAVA: Limited visualization without discrete abnormality. LIVER: The liver is normal in size. The liver contour is normal. There is diffuse increased liver parenchymal echogenicity, consistent with hepatic steatosis. No focal hepatic lesion. There is no intrahepatic biliary duct dilatation seen. GALLBLADDER: Multiple gallstones without evidence of cholecystitis. No wall thickening, mural edema, pericholecystic fluid. Negative sonographic Prater sign. COMMON BILE DUCT: Obscured by bowel gas. RIGHT KIDNEY: Normal. No hydronephrosis. No renal calculi or focal parenchymal lesions. The kidney measures 10.2 cm in maximum dimension. LEFT KIDNEY: Normal. No hydronephrosis. No renal calculi or focal parenchymal lesions. The kidney measures 11.1 cm in maximum dimension. SPLEEN: Normal. The spleen measures 8.8 cm in maximum dimension. FREE FLUID: None. US/US abdomen complete IMPRESSION: Hepatic steatosis. Cholelithiasis without evidence of acute cholecystitis. Nonvisualization of the common bile duct due to bowel gas. No intrahepatic biliary ductal dilatation.
== END 2023-04-05 10:18 | disposition home or self-care (01) ==
LOC: HO.US 10:17
PROVIDERS: PCP Internal Medicine; Visit Provider Internal Medicine
DX: R74.01 Elevation of levels of liver transaminase levels (principal)
CPT/HCPCS: 76700

== ENCOUNTER → 2023-04-15 10:01 | Outpatient (BNVA) | payer OTHER, SELFPAY | PROVIDERS: PCP Internal Medicine; Visit Provider Registered Nurse Diabetes Educator | DX: E11.65 Type 2 diabetes mellitus with hyperglycemia (principal) | CPT/HCPCS: 99211 ==

== ENCOUNTER → 2023-05-27 13:55 | Outpatient (BNVA) | payer OTHER, SELFPAY | PROVIDERS: PCP Internal Medicine; Visit Provider Dietitian, Registered | DX: E11.65 Type 2 diabetes mellitus with hyperglycemia (principal) | CPT/HCPCS: 97803 ==

== ENCOUNTER 2023-06-07 08:53 | Outpatient (REF) | payer OTHER, SELFPAY ==
[2023-06-07 10:40] LABS: Alanine Aminotransferase 31 U/L (0-40); Alkaline Phosphatase 69 U/L (39-117); Anion Gap 12 (12-20); Aspartate Amino Transferase 27 U/L (5-37); Bilirubin Total 1.4 mg/dL (0.0-1.0); Blood Urea Nitrogen 22 mg/dL (9-16); Calcium 9.6 mg/dL (8.4-10.2); Carbon Dioxide 25 mmol/L (22-29); Chloride 106 mmol/L (96-108); Cholesterol 161 mg/dL; Estimated Glomerular Filt Rate > 60; Glucose Fasting 156 mg/dL (60-99); HDL Cholesterol 49 mg/dL; LDL Cholesterol Calculated 91 mg/dl; Potassium 4.3 mmol/L (3.3-5.1); Sodium 139 mmol/L (135-145); Total Protein 7.3 g/dL (6.5-8.0); Triglycerides 106 mg/dL
[2023-06-07 10:56] LABS: Vitamin D 25-OH Total 31.4 ng/mL (>30)
[2023-06-07 10:57] LABS: Prostate Specific Antigen < 0.10 ng/mL (<0.05-4.0)
[2023-06-07 12:06] LABS: Creatinine Urine 72.51 mg/dL; Microalbum/Creatinine Ratio Ur 12.4 ug/mg cr
== END 2023-06-07 08:54 | disposition home or self-care (01) ==
LOC: HO.LAB 08:53
PROVIDERS: Absent Provider Urology; PCP Internal Medicine; Visit Provider Internal Medicine
DX: Z12.5 Encounter for screening for malignant neoplasm of prostate (principal); C61 Malignant neoplasm of prostate; E55.9 Vitamin D deficiency, unspecified; E11.65 Type 2 diabetes mellitus with hyperglycemia; E78.5 Hyperlipidemia, unspecified
CPT/HCPCS: 36415; 80053; 80061; 82043; 82306; 84153

== ENCOUNTER 2023-06-18 14:37 | Outpatient (AMB) | payer OTHER, SELFPAY ==
--- NOTE | 2023-06-18 14:56 | MHC.OFFVIS ---
Intake Intake Visit Reasons: 6M PSA(set) Intake Note: Patient is present for Follow Up PSA Urology Med: Finasteride, Antibiotic Allergy: None Blood Thinner: None Allergies No Known Allergies [No Known Allergies*] Allergy (Verified 03/25/23 15:02) Medication List - Last Reconciled 06/18/23 by Chapin Jackson MD atorvastatin 20 mg PO BEDTIME 90 days benzonatate 100 mg PO BID PRN 5 days blood sugar diagnostic (FreeStyle Lite Strips) 1 strip miscellaneous TID blood-glucose meter (FreeStyle Lite Meter kit) As directed blood-glucose meter (FreeStyle [place] kit) As directed cholecalciferol (vitamin D3) 25 mcg PO DAILY 90 days dulaglutide (Trulicity) 3 mg (0.5 mL) subcut QWEEK empagliflozin (Jardiance) 25 mg PO QAM 90 days finasteride 5 mg PO DAILY 90 days furosemide 20 mg PO Q OTHER DAY 90 days gabapentin 100 mg PO DAILY insulin glargine (Lantus Solostar U-100 Insulin) 12 units (0.12 mL) subcut QPM 90 days lancets (FreeStyle Lancets) Use 1 lancet three times a day lisinopril 5 mg PO DAILY 90 days metformin 1,000 mg PO BID pen needle, diabetic (BD Kesha 2nd Gen Pen Needle) As directed injects once a day sulfamethoxazole-trimethoprim 800-160 mg (Bactrim DS) 1 tab PO bid 5 days HPI HPI Comments History of Present Illness Details Diogo is a pleasant Setswana-speaking male. Accompanied by his son who is translating. He is a patient of Dr. Rodriguez. He is seen for the following urologic conditions - prostate cancer PSA remains low Feels he has a infection Prescription provided 6 month follow-up Prostate cancer: Unfavorable intermediate treated with radiation therapy completed August 2020 +12 months hormones - 02/13 <0.1 Further evaluation of prostate cancer response ?- unfavorable intermediate low volume clinically localized disease, group 3 PSA 10/15 <0.1 T 183, 02/13 <0.1, 06/15 <0.1, 12/17 <0.1, 06/16 <0.1 Completed external beam radiation with short-term hormones August 2020 ? Prostate cancer was diagnosed?Dr Jackson 04/13.? Diagnosis was reached by?needle biopsy, for elevated PSA, PSA at diagnosis ?320 - 10.1 ?size at TRUS 30cc.? The Krishna grade is?March 2020 ?, 4+3 = 7 - RBM 30%, RBL 30% ?, 3+4 = 7 RMM 40% ?, 3+3 = 6 JANA 5% ?Total 105% = 9% total ?PNI Neg.? TNM Classification of Malignant Tumours (TNM)?T2.? The D'Mandy (NCCN) risk category is?Intermediate Risk (PSA 10-20, Gl 7, T2) ?Group 3 ?- unfavorable intermediate Therapeutic plan - lab review 6 months PFSH Medical History Diabetes Essential hypertension History of prostate cancer Hypovitaminosis D Pure hypercholesterolemia Surgical History History of colonoscopy Family History Father Murder Mother No problems noted. Daughter Healthy adult Brother No problems noted. Sister No problems noted. Son No problems noted. Social History Household Members: None Housing: Apartment Alcohol intake: never Patient Tobacco Use Status: Never used Tobacco e-Cigarette/Vaping Use: Never Used Second Hand Smoke Exposure: No service: No Current occupational status: retired Cognitive needs: Yes (CANE) Hearing needs: No Vision needs: Yes Review of Systems Const Denies chills and Denies fever(s) Card Reports no additional complaints and Denies syncope Resp Denies cough GI Denies abdominal pain and Denies heartburn Reports as per HPI and Denies change in libido Neuro Denies syncope Psych Denies change in libido Endo Denies change in libido Physical Exam Const General: cooperative, healthy appearing, comfortable and no acute distress Orientation/consciousness: patient oriented x3 HEENT Face and sinus: Yes normal facial exam Mouth: moist mucous membranes Neck Neck: Yes normal visual inspection, Yes full ROM and Yes trachea midline Chest Chest palpation & inspection: normal inspection of the chest Resp Effort & Inspection: normal respiratory effort, able to speak in complete sentences and no respiratory distress GI Inspection: Yes normal to inspection Back/Spine/Pelvis Cervical Spine: normal cervical lordosis Thoracic/Lumbar Spine: thoracic and lumbar spine normal to inspection Skin General skin exam: no rashes or lesions noted Neuro General: patient oriented x3, gait normal, tone normal and moves all extremities Extrem General: Yes normal to inspection and Yes capillary refill normal Assessment & Plan Assessment & Plan (1) Chronic UTI (urinary tract infection): Code(s): N39.0 - Urinary tract infection, site not specified (2) Prostate cancer: Comment: Unfavorable intermediate external beam radiation with hormones August 2020 Code(s): C61 - Malignant neoplasm of prostate Plan Six month follow-up Orders: Orders Prostate Specific Antigen 6 Months C61 - Malignant neoplasm of prostate Medications: New sulfamethoxazole-trimethoprim 800-160 mg (Bactrim DS) 1 tab PO bid 10 tabs 0RF 5 days N39.0 - Urinary tract infection, site not specified Patient Instructions: Imaging studies, laboratory and physical exam results were discussed and reviewed in detail. No major barriers to patient understanding were identified. An opportunity to ask questions regarding the treatment plan was provided. All questions were answered. The patient expressed understanding and agreement with the above treatment plan. The patient is aware they should contact our office by phone for worsening of their current condition or the appearance of new urologic symptoms. Compliance is encouraged with any medications and followup testing that is ordered. It is a privilege to participate in the urologic care of your patient. If you have any questions or concerns regarding treatment for the above conditions, or other urologic issues, please do not hesitate to contact me. The office telephone contact is [phone]. This note is constructed using voice recognition software. While every effort has been made to ensure accuracy computer discovery teacher errors may have been included. Yours sincerely, Dr Chapin Jackson MD, [facility] - Urology Providers of Expert, Compassionate Care for the Genitourinary System Coding Level of Care Code Est Pt Level 3 (37960) Diagnoses Chronic UTI (urinary tract infection) N39.0 Prostate cancer C61
== END 2023-06-18 15:41 | disposition home or self-care (01) ==
PROVIDERS: Visit Provider Urology
DX: N39.0 Urinary tract infection, site not specified (principal); C61 Malignant neoplasm of prostate
CPT/HCPCS: 99213

== ENCOUNTER → 2023-06-18 14:37 | Outpatient (BNVA) | payer OTHER, SELFPAY | PROVIDERS: Visit Provider Urology | DX: C61 Malignant neoplasm of prostate (principal); N39.0 Urinary tract infection, site not specified; Z79.4 Long term (current) use of insulin; Z79.899 Other long term (current) drug therapy | CPT/HCPCS: 99212 ==

== ENCOUNTER 2023-07-03 08:52 | Outpatient (AMB) | payer OTHER, SELFPAY ==
--- NOTE | 2023-07-03 08:56 | A.OFFVIS_ITS ---
Intake Vital Signs 07/03/23 08:57 Height 5 ft 7 in Weight 234 lb 12.677 oz BMI 36.8 Blood Pressure Location Lt brachial Position Sitting Pulse 80 Pulse Source Palpation Intake Visit Reasons: f/u Type 2 DM Intake Note: Patient present today to follow up on Type 2 Diabetes Mellitus. Last Diabetic Eye exam: Last Podiatry Visit: Random Glucose: 169 mg/dl HgA1C: 8.4% Glass Driller Required: No Glass Driller Name: Refusal signed Information Interpreted: non-clinical & clinical Accompanied by: Daughter Allergies No Known Allergies [No Known Allergies*] Allergy (Verified 07/03/23 09:02) Medication List - Last Reconciled 07/03/23 by Sahil Kc MD atorvastatin 20 mg PO BEDTIME 90 days benzonatate 100 mg PO BID PRN 5 days blood sugar diagnostic (FreeStyle Lite Strips) 1 strip miscellaneous TID blood-glucose meter (FreeStyle Lite Meter kit) As directed blood-glucose meter (FreeStyle [place] kit) As directed cholecalciferol (vitamin D3) 25 mcg PO DAILY 90 days dulaglutide (Trulicity) 3 mg (0.5 mL) subcut QWEEK empagliflozin (Jardiance) 25 mg PO QAM 90 days finasteride 5 mg PO DAILY 90 days furosemide 20 mg PO Q OTHER DAY 90 days gabapentin 100 mg PO DAILY insulin glargine (Lantus Solostar U-100 Insulin) 12 units (0.12 mL) subcut QPM 90 days lancets (FreeStyle Lancets) Use 1 lancet three times a day lisinopril 5 mg PO DAILY 90 days metformin 1,000 mg PO BID pen needle, diabetic (BD Kesha 2nd Gen Pen Needle) As directed injects once a day sulfamethoxazole-trimethoprim 800-160 mg (Bactrim DS) 1 tab PO bid 5 days HPI HPI Comments History of Present Illness Details 77 YO M who is seen in consultation for T2DM at the request of PCP. Initially diagnosed with T2DM in for 20 yrs . Was initially started on treatment with metformin. Current regimen Trulicity 3 mg Qwkly Jardiance 25 mg metformin 1000 mg BID. Lantus 10 units Glucometer download shows she is checking his point cares twice a day. Ranges 95 to 293 with average glucose of 177. Standard deviation is 43. Target glucose is 59% with 41% hyperglycemia and no hypoglycemia Denies any hypoglycemia Family history of T2DM in sister . Has eyes checked yearly, last eye exam February 2022 , denies retinopathy. Denies neuropathy, , sees podiatry. Denies nephropathy, on HERLINDA/ARB. Has HLD, on statin. . Denies CAD. saw diabetes education. [facility] Medical History Diabetes Essential hypertension History of prostate cancer Hypovitaminosis D Pure hypercholesterolemia Surgical History History of colonoscopy Family History Father Murder Mother No problems noted. Daughter Healthy adult Brother No problems noted. Sister No problems noted. Son No problems noted. Social History Household Members: None Housing: Apartment Alcohol intake: never Patient Tobacco Use Status: Never used Tobacco e-Cigarette/Vaping Use: Never Used Second Hand Smoke Exposure: No service: No Current occupational status: retired Cognitive needs: Yes (CANE) Hearing needs: No Vision needs: Yes Physical Exam Vital Signs: Last Vital Signs Pulse 80 07/03/23 08:57 BMI result Body Mass Index 36.8 Absence of Cushingoid features. Absence of acromegalic features. Neck exam reveals nl size thyroid about 15 gms. No thyroid nodules palpable. No carotid bruits present. Lungs CTA. Heart S1 S2, Reg R/R. No M/R/ G. Skin exam reveals absence of vitiligo or acanthosis nigricans. Abdominal exam reveals Soft NT/ND with NA BS. No organomegaly present. Neck Other: . Extrem Other: Visual exam of foot performed. No ulcerations or open lesions. No onchomycosis, no callouses.Pulses 2 + distally Sensation decreasedto monofilament exam. Vibratory sensation sensed is intact with 128 Hz tuning fork Results AMB Hemoglobin A1c AMB Hemoglobin A1c 8.4 % Last Edit by Yeni Mckay on 07/03/23 09:20 Assessment & Plan Assessment & Plan (1) DMII (diabetes mellitus, type 2): Code(s): E11.9 - Type 2 diabetes mellitus without complications Qualifiers: Diabetes mellitus complication status: with hyperglycemia Diabetes mellitus bed bug exterminator insulin use: without bed bug exterminator use Qualified Code(s): E11.65 - Type 2 diabetes mellitus with hyperglycemia Plan: This is a 77-year-old male with a history of type 2 diabetes being treated with metformin, Jardiance and Trulicity and basal insulin with fair glycemic control and no known microvascula edwards macrovascular complications Plan is to have the patient check his point cares pre and post breakfast and dinner. He will initiate the Carlie 2 today. Patient was instructed to follow up with bilingual patient support caseworker.. I explained the relationship poor glycemic control to development of complications. Go would be hemoglobin A1c < 7.5 Orders: Orders AMB Hemoglobin A1c Today E11.9 - Type 2 diabetes mellitus without complications Coding Level of Care Code Est Pt Level 4 (35367) Diagnoses DMII (diabetes mellitus, type 2) E11.65 Diabetes mellitus complication status: with hyperglycemia Diabetes mellitus bed bug exterminator insulin use: without senior living use
[2023-07-03 08:57] VITALS: PULSE 80; BMI 36.8
[2023-07-03 09:15] LABS: Glucose, Whole Blood 169 mg/dL (60-115)
== END 2023-07-03 09:30 | disposition home or self-care (01) ==
PROVIDERS: PCP Internal Medicine; Referring Provider Internal Medicine; Visit Provider Internal Medicine Endocrinology, Diabetes & Metabolism
DX: E11.9 Type 2 diabetes mellitus without complications (principal); E11.65 Type 2 diabetes mellitus with hyperglycemia
CPT/HCPCS: 99214

== ENCOUNTER → 2023-07-03 08:52 | Outpatient (BNVA) | payer OTHER, SELFPAY | PROVIDERS: Visit Provider Internal Medicine Endocrinology, Diabetes & Metabolism | DX: E11.65 Type 2 diabetes mellitus with hyperglycemia (principal) | CPT/HCPCS: 82947; 83036; 99212 ==

== ENCOUNTER 2023-07-25 16:05 | Outpatient (AMB) | payer OTHER, SELFPAY ==
--- NOTE | 2023-07-25 16:07 | A.OFFPC_ITS ---
Vital Signs 07/25/23 16:11 Height 5 ft 7 in Weight 233 lb BMI 36.5 BP 110/70 Blood Pressure Location Lt brachial Position Sitting Intake Visit Reasons: Physical Exam Intake Note: Patient here for a physical exam Mixed Signal Design Engineer Required: No Accompanied by: Daughter Allergies No Known Allergies [No Known Allergies*] Allergy (Verified 07/25/23 16:24) Medication List - Last Reconciled 07/25/23 by Faith Rodriguez MD atorvastatin 20 mg PO BEDTIME 90 days blood sugar diagnostic (FreeStyle Lite Strips) 1 strip miscellaneous TID blood-glucose meter (FreeStyle Lite Meter kit) As directed blood-glucose meter (FreeStyle [place] kit) As directed cholecalciferol (vitamin D3) 25 mcg PO DAILY 90 days dulaglutide (Trulicity) 3 mg (0.5 mL) subcut QWEEK empagliflozin (Jardiance) 25 mg PO QAM 90 days finasteride 5 mg PO DAILY 90 days furosemide 20 mg PO Q OTHER DAY 90 days gabapentin 100 mg PO DAILY insulin glargine (Lantus Solostar U-100 Insulin) 12 units (0.12 mL) subcut QPM 90 days lancets (FreeStyle Lancets) Use 1 lancet three times a day lisinopril 5 mg PO DAILY 90 days metformin 1,000 mg PO BID pen needle, diabetic (BD Kesha 2nd Gen Pen Needle) As directed injects once a day Tobacco use date assessed: 03/25/23 Fall risk assessment: No Falls in past year Last assessed Fall Risk: 07/25/23 Dental Screening Dental Screen Date: 07/25/23 Did you have a dental visit in the last 12 months?: No Did you have a dental problem in the last 6 months where you did not have access to dental care?: No Was dental information given to patient?: Patient declined HPI HPI Comments History of Present Illness Details This is a 77-year-old male with diabetes mellitus type 2 that comes for his physical exam. A1c within goal. Accompanied by daughter. Walks with a cane for gait stability. 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 No chest pain or shortness of breath. Diabetic eye exam recently. [facility] Medical History (Updated 07/25/23 @ 16:37 by Faith Rodriguez MD) Diabetes Essential hypertension History of prostate cancer Hypovitaminosis D Pure hypercholesterolemia Surgical History History of colonoscopy Family History (Updated 07/25/23 @ 16:29 by Faith Rodriguez MD) Father Murder Mother No problems noted. Daughter Healthy adult Brother No problems noted. Sister No problems noted. Son No problems noted. Social History Household Members: None Housing: Apartment Alcohol intake: never Patient Tobacco Use Status: Never used Tobacco e-Cigarette/Vaping Use: Never Used Second Hand Smoke Exposure: No service: No Current occupational status: retired Cognitive needs: Yes (CANE) Hearing needs: No Vision needs: Yes Questionnaire Thrive Questionnaire Date Thrive assessed: 03/25/23 DOMONIQUE-7 AMB Questionnaire DOMONIQUE-7 Date DOMONIQUE - 7 assessed: 03/25/23 Source: Developed by Drs. Sahil Welch, Maine Turpin, Jemal Rees and colleagues, with an educational lorena from [employer]. Review of Systems Const All systems reviewed & are unremarkable except as noted in HPI and below Eyes Reports no additional complaints, Denies change in vision and Denies other visual disturbances Card Denies chest pain at rest, Denies chest pain with activity, Denies edema, Denies irregular heart rhythm, Denies claudication, Denies dyspnea, Denies dyspnea on exertion, Denies orthopnea, Denies paroxysmal nocturnal dyspnea and Denies slow heart rate Resp Denies cough, Denies dyspnea and Denies dyspnea on exertion GI Denies abdominal pain, Denies change in bowel habits, Denies excessive flatus, Denies nausea and Denies vomiting Denies urinary hesitancy, Denies urinary incontinence and Denies urinary urgency Musc Denies abnormal gait, Denies atrophy, Denies deformity and Denies limited range of motion Skin/Breast Denies bleeding lesions, Denies changing lesions and Denies rash Neuro Denies abnormal gait and Denies lack of coordination Physical exam (Primary Care) Vital Signs: Last Vital Signs BP 110/70 07/25/23 16:11 BMI result Body Mass Index 36.5 Tobacco/Smoking Status: Tobacco use Status Tobacco use date assessed 03/25/23 07/25/23 16:10 Patient Tobacco Use Status Never used Tobacco 07/25/23 16:10 e-Cigarette/Vaping Use Never Used 07/25/23 16:10 Thrive Assessment: Date of Thrive Assessment Date Thrive assessed 03/25/23 07/25/23 16:10 Const Orientation/consciousness: patient oriented x3 Limitations: ambulation with cane HENMT Head: Yes normal to inspection, Yes normocephalic and Yes atraumatic Ears: external ears normal Eyes General: appearance normal, both eyes and all related structures Eyelids: Yes eyelids normal Conjunctivae: conjunctivae normal Neck Neck: Yes normal visual inspection and Yes supple Resp Effort & Inspection: normal respiratory effort Auscultation: clear to auscultation bilaterally Cardio Jugular venous distension: no JVD Rate: regular rate Rhythm: regular rhythm Heart sounds: S1 normal heart sound present and S2 normal heart sound present GI Inspection: Yes normal to inspection Palpation (GI): Soft to palpation and nontender Auscultation: normal bowel sounds Skin General skin exam: no rashes or lesions noted Neuro General: patient oriented x3 and no focal motor deficits Extrem General: Yes full ROM Psych Appearance: grossly normal Assessment and Plan Assessment & Plan (1) Physical exam: Code(s): Z00.00 - Encounter for general adult medical examination without abnormal findings Plan: Repeat deny year (2) DMII (diabetes mellitus, type 2): Code(s): E11.9 - Type 2 diabetes mellitus without complications Qualifiers: Diabetes mellitus marine oil terminal superintendent insulin use: without marine oil terminal superintendent use Diabetes mellitus complication status: with hyperglycemia Qualified Code(s): E11.65 - Type 2 diabetes mellitus with hyperglycemia Plan: Continue Trulicity. A1c goal is equal or less than 7%. Follow-up with endocrinology. Orders: Orders Lipid Panel 4 Months E78.5 - Hyperlipidemia, unspecified Microalbumin, Random (w Creat) 4 Months E11.9 - Type 2 diabetes mellitus without complications Vitamin D 25-OH Total 4 Months E55.9 - Vitamin D deficiency, unspecified Comprehensive [place]. Panel Fast 4 Months Z00.00 - Encounter for general adult medical examination without abnormal findings Medications: New atorvastatin 40 mg PO BEDTIME 90 tabs 1RF 90 days Ventolin HFA 90 mcg/actuation (albuterol sulfate) 2 puffs inhalation Q6H PRN 18 grams 1RF shortness of breath or wheezing 30 days NS J45.909 - Unspecified asthma, uncomplicated Discontinued atorvastatin Discontinued Reason: Patient Completed Course 20 mg PO BEDTIME 90 days 90 tabs 1RF E78.00 - Pure hypercholesterolemia, unspecified Coding Level of Care Code Est Pt Prev Care >65y(15678) Diagnoses Physical exam Z00.00 DMII (diabetes mellitus, type 2) E11.65 Diabetes mellitus assisted insulin use: without assisted use Diabetes mellitus complication status: with hyperglycemia Time Spent (min) 31
[2023-07-25 16:11] VITALS: BP 110/70; BMI 36.5
== END 2023-07-25 16:38 | disposition home or self-care (01) ==
PROVIDERS: Visit Provider Internal Medicine
DX: Z00.00 Encounter for general adult medical examination without abnormal findings (principal); E11.65 Type 2 diabetes mellitus with hyperglycemia
CPT/HCPCS: 99397

== ENCOUNTER 2023-08-06 15:38 | Outpatient (AMB) | payer OTHER, SELFPAY ==
--- NOTE | 2023-08-06 15:52 | A.OFFVIS_ITS ---
Intake Vital Signs 08/06/23 16:02 Height 5 ft 7 in BP 113/58 L Blood Pressure Location Rt brachial Position Sitting Intake Visit Reasons: 1 year follow up Intake Note: Patient presents to in office visit today in one year follow up of constipation. CC: Patient reports doing well and denies any new GI symptoms or concerns today. Monument Carver Required: No Information Interpreted: non-clinical & clinical Accompanied by: Son Allergies No Known Allergies [No Known Allergies*] Allergy (Verified 07/25/23 16:24) HPI 1 year follow up HPI Details Assessment & Plan (1) Hemorrhoids: Code(s): K64.9 - Unspecified hemorrhoids Plan: [place] Irish # dtr translates per pt request. He has had intermittent CIC and occasional RB on the TT but this continues to respond well to the proctosol cream. NO other GI concerns, no problems with his known gallstones. ROV 1 year. (2) Gallstones: Comment: Asymptomatic Code(s): K80.20 - Calculus of gallbladder without cholecystitis without obstruction Medications: Refilled hydrocortisone 2.5 % (Proctosol HC) 1 appl AK BID 30 days 30 grams 12RF hemorrhoids K64.9 - Unspecifie d hemorrhoids TODAY'S VISIT Northern Irish (if no dtr to translate) son interpreting per pt request Since he is quite stable and the only rx was proctosol cream he opts to follow with his PCP and have them prescribe this. [facility] Medical History Hypovitaminosis D History of prostate cancer Diabetes Pure hypercholesterolemia Essential hypertension Surgical History History of colonoscopy Family History Father Murder Mother No problems noted. Daughter Healthy adult Brother No problems noted. Sister No problems noted. Son No problems noted. Social History Household Members: None Housing: Apartment Alcohol intake: never Patient Tobacco Use Status: Never used Tobacco e-Cigarette/Vaping Use: Never Used Second Hand Smoke Exposure: No service: No Current occupational status: retired Cognitive needs: Yes (CANE) Hearing needs: No Vision needs: Yes Review of Systems Const Denies fatigue, Denies fever(s), Denies night sweats, Denies poor appetite and Denies weight loss ENT Reports Normal hearing present, Denies dental pain, Denies dysphagia, Denies hearing loss, Denies mouth pain, Denies odynophagia, Denies throat swelling, Denies tongue swelling and Reports other (Dentition adequate) Card Reports no additional complaints Resp Reports no additional complaints GI Denies abdominal pain, Denies melena, Denies bloating, Reports hematochezia, Denies constipation, Denies GI cramping, Denies dysphagia, Denies excessive flatus, Denies early satiety, Denies heartburn, Denies diarrhea, Denies nausea, Denies odynophagia, Denies vomiting and Denies hematemesis Skin/Breast Denies pruritus, Denies lesions, Denies rash and Denies jaundice Neuro Reports Normal hearing present and Denies Abnormal speech present Endo Denies fatigue Aller/Immun Denies throat swelling and Denies tongue swelling Physical Exam Vital Signs: Last Vital Signs BP 113/58 L 08/06/23 16:02 Const General: cooperative, no acute distress, well developed and well groomed Nutritional Appearance: well nourished and obese Orientation/consciousness: oriented to person, oriented to place and oriented to time Limitations: language barrier HEENT Head: Yes normocephalic and Yes atraumatic Eyes General: appearance normal, both eyes and all related structures Pupils: Equal, round and reactive pupils present Neck Neck: Yes normal visual inspection and Yes no lymphadenopathy Thyroid: Thyroid normal Resp Effort & Inspection: normal respiratory effort and able to speak in complete sentences Auscultation: clear to auscultation bilaterally Cardio Rate: regular rate Rhythm: regular rhythm Heart sounds: Normal, physiologic split S2 sound present Peripheral pulses: radial pulses present and posterior tibial pulses present GI Inspection: No distended, No Abdominal panniculus present and Yes obesity Palpation (GI): Soft to palpation, nontender, no guarding, not rigid and No hepatosplenomegaly present Percussion: Yes normal to percussion Auscultation: normal bowel sounds Rectal Exam - Male: Yes deferred Skin General skin exam: no rashes or lesions noted, turgor normal, skin not dry, no jaundice, No spider nevi and no striae Rashes: no rashes Nails: normal Neuro General: oriented to person, oriented to place and oriented to time Cranial nerves: Yes Equal, round and reactive pupils present and Yes Normal hearing present Speech: No Abnormal speech present Extrem General: Yes normal to inspection, No clubbing, No cyanosis and No edema Psych Appearance: grossly normal and well kempt Mental Status: mental status grossly normal Speech and movement: Normal speech and movement present Affect: normal affect Attitude: cooperative Thought process: Normal thought process present and not confabulating Thought content: Normal thought content present Insight: Fair insight present (Psych) Judgement: Fair judgement present (Psych) Assessment & Plan Assessment & Plan (1) Hemorrhoids: Code(s): K64.9 - Unspecified hemorrhoids Plan: [place] Irish (if no dtr to translate) son interpreting per pt request Since he is quite stable and the only rx was proctosol cream he opts to follow with his PCP and have them prescribe this. Coding Level of Care Code Est Pt Level 3 (52476) Diagnoses Hemorrhoids K64.9
[2023-08-06 16:02] VITALS: BP 113/58
== END 2023-08-06 16:07 | disposition home or self-care (01) ==
PROVIDERS: Visit Provider Nurse Practitioner
DX: K64.9 Unspecified hemorrhoids (principal)
CPT/HCPCS: 99213

== ENCOUNTER → 2023-08-06 15:38 | Outpatient (BNVA) | payer OTHER, SELFPAY | PROVIDERS: Visit Provider Nurse Practitioner | DX: K64.9 Unspecified hemorrhoids (principal); K59.04 Chronic idiopathic constipation | CPT/HCPCS: 99212 ==

== ENCOUNTER 2023-10-07 12:34 | Outpatient (AMB) | payer OTHER, SELFPAY ==
--- NOTE | 2023-10-07 12:56 | A.OFFVIS_ITS ---
Intake Intake Visit Reasons: DM-LVM Manager Of Photography Required: Yes Manager Of Photography Language: Register Of Wills Name: Pt's son Information Interpreted: non-clinical & clinical Accompanied by: Son Allergies No Known Allergies [No Known Allergies*] Allergy (Verified 07/25/23 16:24) HPI Comprehensive Diabetes Asmnt Most Recent Diabetes Results: Microalb/Creat Ratio 12.4 ug/mg cr 06/07/23 Cholesterol 161 mg/dL 06/07/23 HDL Cholesterol 49 mg/dL 06/07/23 Triglycerides 106 mg/dL 06/07/23 Creatinine 0.87 mg/dL (0.5-1.4) 06/07/23 Blood Urea Nitrogen 22 mg/dL (9-16) H 06/07/23 Sodium 139 mmol/L (135-145) 06/07/23 Potassium 4.3 mmol/L (3.3-5.1) 06/07/23 Chloride 106 mmol/L (96-108) 06/07/23 Carbon Dioxide 25 mmol/L (22-29) 06/07/23 Calcium 9.6 mg/dL (8.4-10.2) 06/07/23 AST 27 U/L (5-37) 06/07/23 ALT 31 U/L (0-40) 06/07/23 Total Protein 7.3 g/dL (6.5-8.0) 06/07/23 Albumin 4.0 g/dL (3.5-5.0) 06/07/23 [facility] Medical History Hypovitaminosis D History of prostate cancer Diabetes Pure hypercholesterolemia Essential hypertension Surgical History History of colonoscopy Family History Father Murder Mother No problems noted. Daughter Healthy adult Brother No problems noted. Sister No problems noted. Son No problems noted. Social History Household Members: None Housing: Apartment Alcohol intake: never Patient Tobacco Use Status: Never used Tobacco e-Cigarette/Vaping Use: Never Used Second Hand Smoke Exposure: No service: No Current occupational status: retired Cognitive needs: Yes (CANE) Hearing needs: No Vision needs: Yes Assessment & Plan Assessment & Plan (1) DMII (diabetes mellitus, type 2): Code(s): E11.9 - Type 2 diabetes mellitus without complications Qualifiers: Diabetes mellitus intermediate designer insulin use: without fdc use Diabetes mellitus complication status: with hyperglycemia Qualified Code(s): E11.65 - Type 2 diabetes mellitus with hyperglycemia Plan: Personal Continuous Glucose Monitor: Patient did not bring Carlie 2 reader to today's visit. Patient also reports he has stopped Trulicity 3 mg approximately 2-3 months ago due to inability to get medication from pharmacy. Patient's son texted his sister to find out if medicine have been DC by physician. Patient's daughter said pharmacy said there is no more refills on prescription. Instructed family if they need prescriptions that she contact prescribers office to request new refills Message sent to Dr. Kc regarding prescription for Trulicity 3 mg, patient agreed to to restart medication Patient is also due for A1c, last A1c 07/03/2023 8.4% Requested A1c order from Dr. Kc Reviewed how to interpret trend arrows Reminded patient that to check finger sticks if symptoms do not match sensor reading. Patient's daughter able to insert sensor independently at home without issue.? Patient Instructions: Follow-up with neurology director in 2 months, the review A1c and medication list at that visit Coding Level of Care Code Est Pt Level 1 (42599) Diagnoses Type 2 diabetes mellitus with hyperglycemia, without long-term current use of i nsulin E11.65 Diabetes mellitus fdc insulin use: without intermediate designer use Diabetes mellitus complication status: with hyperglycemia
== END 2023-10-07 13:44 | disposition home or self-care (01) ==
PROVIDERS: PCP Internal Medicine; Visit Provider Registered Nurse Diabetes Educator
DX: E11.65 Type 2 diabetes mellitus with hyperglycemia (principal)

== ENCOUNTER → 2023-10-07 12:34 | Outpatient (BNVA) | payer OTHER, SELFPAY | PROVIDERS: Visit Provider Registered Nurse Diabetes Educator | DX: E11.65 Type 2 diabetes mellitus with hyperglycemia (principal) | CPT/HCPCS: 99211 ==

== ENCOUNTER 2023-12-04 15:29 | Outpatient (AMB) | payer OTHER, SELFPAY ==
--- NOTE | 2023-12-04 15:44 | A.OFFPC_ITS ---
Vital Signs 12/04/23 15:46 Height 5 ft 7 in Weight 226 lb 8 oz BMI 35.5 BP 118/60 Blood Pressure Location Lt brachial Position Sitting Respiration 16 Pulse 95 Pulse Source Pulse Oximeter Pulse Oximetry (%) 95 Oxygen Delivery Method Room Air Intake Visit Reasons: 4mth f/u Cider Press Operator Required: No Accompanied by: Self / Same As Patient Allergies No Known Allergies [No Known Allergies*] Allergy (Verified 12/04/23 15:57) Medication List - Last Reconciled 12/04/23 by Faith Rodriguez MD atorvastatin 40 mg PO BEDTIME 90 days blood sugar diagnostic (FreeStyle Lite Strips) 1 strip miscellaneous TID blood-glucose meter (FreeStyle Lite Meter kit) As directed blood-glucose meter (FreeStyle [place] kit) As directed cholecalciferol (vitamin D3) 25 mcg PO DAILY 90 days dulaglutide (Trulicity) 3 mg (0.5 mL) subcut QWEEK empagliflozin (Jardiance) 25 mg PO QAM 90 days finasteride 5 mg PO DAILY 90 days furosemide 20 mg PO Q OTHER DAY 90 days gabapentin 100 mg PO DAILY insulin glargine (Lantus Solostar U-100 Insulin) 12 units (0.12 mL) subcut QPM 90 days lancets (FreeStyle Lancets) Use 1 lancet three times a day lisinopril 5 mg PO DAILY 90 days metformin 1,000 mg PO BID pen needle, diabetic (BD Kesha 2nd Gen Pen Needle) As directed injects once a day Ventolin HFA 90 mcg/actuation (albuterol sulfate) 2 puffs inhalation Q6H PRN 30 days NS Tobacco use date assessed: 12/04/23 Fall risk assessment: No Falls in past year Last assessed Fall Risk: 12/04/23 Dental Screening Dental Screen Date: 12/04/23 Did you have a dental visit in the last 12 months?: No Did you have a dental problem in the last 6 months where you did not have access to dental care?: No Was dental information given to patient?: No HPI HPI Comments History of Present Illness Details This is a 77-year-old male with diabetes mellitus type 2 on long-term current use of insulin, hypertension, and hyperlipidemia that comes today accompanied by daughter complaining of insomnia with no particular reason that started few weeks ago. I will start him on trazodone as needed for insomnia. A1c has improved but still elevated and I will increase insulin from 15 units to 18 units. He has an appointment with endocrinology soon. Blood pressure stable. Last LDL was close to goal and lipid panel will be repeated. No chest pain or shortness of breath. Walks with a cane for gait stability. [facility] Medical History Hypovitaminosis D History of prostate cancer Diabetes Pure hypercholesterolemia Essential hypertension Surgical History History of colonoscopy Family History Father Murder Mother No problems noted. Daughter Healthy adult Brother No problems noted. Sister No problems noted. Son No problems noted. Social History Household Members: None Housing: Apartment Alcohol intake: never Patient Tobacco Use Status: Never used Tobacco e-Cigarette/Vaping Use: Never Used Second Hand Smoke Exposure: No service: No Current occupational status: retired Cognitive needs: Yes (CANE) Hearing needs: No Vision needs: Yes Questionnaire PHQ-9 Over the last 2 weeks, how often have you been bothered by any of the following problems? 1. Little interest or pleasure in doing things: not at all 2. Feeling down, depressed, or hopeless: not at all 3. Trouble falling or staying asleep, or sleeping too much: not at all 4. Feeling tired or having little energy: not at all 5. Poor appetite or overeating: not at all 6. Feeling bad about yourself - or that you are a failure or have let yourself or your family down: not at all 7. Trouble concentrating on things, such as reading the newspaper or watching television: not at all 8. Moving or speaking so slowly that other people could have noticed. Or the opposite - being so fidgety or restless that you have been moving around a lot more than usual: not at all 9. Thoughts that you would be better off or of hurting yourself in some way: not at all Total score: 0 Depression Screening Interpretation: Negative Depression Screening Done: Yes 05830 - PHQ-9 Billing: Yes Source: Developed by Drs. Sahil Welch, Maine Turpin, Jemal Rees and colleagues, with an educational lorena from [employer]. Thrive Questionnaire Date Thrive assessed: 12/04/23 I am a: Patient What is your living situation today?: I have a steady place to live Within the past 12 months, did the food you bought not last and you didn't have the money to get more?: Never true Within the past 12 months, did you worry whether your food would run out before you got money to buy more?: Never true Do you have trouble paying for medicines?: No Do you have trouble getting transportation to medical appointments?: No Do you have trouble paying your heating and electricity bill?: No Do you have trouble taking care of your child, family member or friend?: No Do you have trouble with day-to-day activities such as bathing, preparing meals, shopping, managing finances, etc.?: No Are you currently unemployed and looking for a job?: No Are you interested in more education?: No Please select the resources that you would like help with: None Currently or been in a relationship where the following occur: no concerns reported AUDIT C Alcohol Use Questionnaire (AUDIT-C) 1. How often do you have a drink containing alcohol?: Never 3. How often do you have six or more drinks on one occasion?: Never Total Score: 0 DOMONIQUE-7 AMB Questionnaire DOMONIQUE-7 Date DOMONIQUE - 7 assessed: 12/04/23 Feeling nervous, anxious, or on edge: 0 = Not at all Not being able to stop or control worryin = Not at all Worrying too much about different things: 0 = Not at all Trouble relaxin = Not at all Being so restless that it is hard to sit still: 0 = Not at all Becoming easily annoyed or irritable: 0 = Not at all Feeling afraid as if something awful might happen: 0 = Not at all Total DOMONIQUE-7 score (0-4 normal; 5-9 mild; 10-14 moderate; 15-21 severe): 0 Source: Developed by Drs. Sahil Welch, Jemal Levine and colleagues, with an educational lorena from [employer]. DOMONIQUE-7 Assessment Billing DOMONIQUE-7 Assessment Tool: DOMONIQUE-7 Assessment 85538 Review of Systems Const All systems reviewed & are unremarkable except as noted in HPI and below Eyes Reports no additional complaints, Denies change in vision and Denies other visual disturbances Card Denies chest pain at rest, Denies chest pain with activity, Denies edema, Denies irregular heart rhythm, Denies claudication, Denies dyspnea, Denies dyspnea on exertion, Denies orthopnea, Denies paroxysmal nocturnal dyspnea and Denies slow heart rate Resp Denies cough, Denies dyspnea and Denies dyspnea on exertion GI Denies abdominal pain, Denies change in bowel habits, Denies excessive flatus, Denies nausea and Denies vomiting Denies urinary hesitancy, Denies urinary incontinence and Denies urinary urgency Musc Denies atrophy, Denies deformity and Denies limited range of motion Physical exam (Primary Care) Vital Signs: Last Vital Signs Pulse 95 12/04/23 15:46 Resp 16 12/04/23 15:46 BP 118/60 12/04/23 15:46 Pulse Ox 95 12/04/23 15:46 Oxygen Delivery Method Room Air 12/04/23 15:46 BMI result Body Mass Index 35.5 Tobacco/Smoking Status: Tobacco use Status Tobacco use date assessed 12/04/23 12/04/23 15:53 Patient Tobacco Use Status Never used Tobacco 12/04/23 15:44 e-Cigarette/Vaping Use Never Used 12/04/23 15:44 PHQ-9: PHQ-9 Score PHQ-9: Total score 0 12/04/23 16:45 Depression Screening Interpretation: Negative Thrive Assessment: Date of Thrive Assessment Date Thrive assessed 12/04/23 12/04/23 15:51 Currently or been in a relationship where the following occur: no concerns reported Const Limitations: ambulation with cane Eyes General: appearance normal, both eyes and all related structures Eyelids: Yes eyelids normal Conjunctivae: conjunctivae normal Neck Neck: Yes normal visual inspection and Yes supple Resp Effort & Inspection: normal respiratory effort Auscultation: clear to auscultation bilaterally Cardio Jugular venous distension: no JVD Rate: regular rate Rhythm: regular rhythm Heart sounds: S1 normal heart sound present and S2 normal heart sound present Extrem General: Yes full ROM Results AMB Hemoglobin A1c AMB Hemoglobin A1c 7.8 % Last Edit by BALBINA Zapien on 12/04/23 15:54 Results Reviewed Results Reviewed: Laboratory Last Values Hgb A1c (Clinic) 7.8 % (4.0-6.0) H 12/04/23 15:34 Assessment and Plan Assessment & Plan (1) DMII (diabetes mellitus, type 2): Code(s): E11.9 - Type 2 diabetes mellitus without complications Qualifiers: Diabetes mellitus complication status: with hyperglycemia Diabetes mellitus terminal gauger insulin use: without terminal gauger use Qualified Code(s): E11.65 - Type 2 diabetes mellitus with hyperglycemia Plan: Continue metformin, Jardiance and Trulicity. Increase insulin from 15 units to 18 units. A1c goal is equal or less than 7%. Follow-up with endocrinology. (2) Essential hypertension: Code(s): I10 - Essential (primary) hypertension Plan: Continue lisinopril. Blood pressure goal is equal or less than 130/80. (3) Pure hypercholesterolemia: Code(s): E78.00 - Pure hypercholesterolemia, unspecified Plan: Continue statins. LDL goal is less than 70. (4) Insomnia: Code(s): G47.00 - Insomnia, unspecified Qualifiers: Insomnia type: unspecified Qualified Code(s): G47.00 - Insomnia, unspecified Plan: Start trazodone as needed. Orders: Orders Vitamin D 25-OH Total Today E55.9 - Vitamin D deficiency, unspecified Lipid Panel Today E78.5 - Hyperlipidemia, unspecified Microalbumin, Random (w Creat) Today E11.9 - Type 2 diabetes mellitus without complications Comprehensive [place]. Panel Fast Today E11.9 - Type 2 diabetes mellitus without complications AMB Hemoglobin A1c Today E11.9 - Type 2 diabetes mellitus without complications Medications: New trazodone 50 mg PO BEDTIME PRN 30 tabs 0RF sleep 30 days Changed From insulin glargine (Lantus Solostar U-100 Insulin) 12 units (0.12 mL) subcut QPM 90 days 10.8 mL 1RF E11.9 - Type 2 diabetes mellitus without complications To insulin glargine (Lantus Solostar U-100 Insulin) 18 units (0.18 mL) subcut QPM 16.2 mL 1RF 90 days E11.9 - Type 2 diabetes mellitus without complications Coding Level of Care Code Est Pt Level 4 (41181) Diagnoses Type 2 diabetes mellitus with hyperglycemia, without long-term current use of insulin E11.65 Diabetes mellitus complication status: with hyperglycemia Diabetes mellitus mcfp insulin use: without mcfp use Essential hypertension I10 Pure hypercholesterolemia E78.00 Insomnia, unspecified type G47.00 Insomnia type: unspecified Additional Codes DOMONIQUE-7 Assessment Billing - DOMONIQUE-7 Assessment Tool: DOMONIQUE-7 Assessment 34756 ([id number]) Time Spent (min) 23
[2023-12-04 15:46] VITALS: BP 118/60; PULSE 95; RESP 16; O2SAT 95; BMI 35.5
== END 2023-12-04 16:03 | disposition home or self-care (01) ==
PROVIDERS: PCP Internal Medicine; Visit Provider Internal Medicine
DX: E11.65 Type 2 diabetes mellitus with hyperglycemia (principal); I10 Essential (primary) hypertension; E78.00 Pure hypercholesterolemia, unspecified; G47.00 Insomnia, unspecified; E11.9 Type 2 diabetes mellitus without complications
CPT/HCPCS: 83036; 99214

== ENCOUNTER 2023-12-17 08:26 | Outpatient (REF) | payer OTHER, SELFPAY ==
[2023-12-17 10:44] LABS: Creatinine Urine 100.02 mg/dL; Microalbum/Creatinine Ratio Ur 49.9 ug/mg cr (<30)
[2023-12-17 11:05] LABS: Alanine Aminotransferase 21 U/L (0-40); Albumin Level 3.9 g/dL (3.5-5.0); Alkaline Phosphatase 64 U/L (39-117); Anion Gap 10 (12-20); Aspartate Amino Transferase 23 U/L (5-37); Bilirubin Total 1.3 mg/dL (0.0-1.0); Blood Urea Nitrogen 22 mg/dL (9-16); Calcium 9.6 mg/dL (8.4-10.2); Carbon Dioxide 27 mmol/L (22-29); Chloride 109 mmol/L (96-108); Cholesterol 168 mg/dL (<200); Estimated Glomerular Filt Rate > 60; Glucose Fasting 114 mg/dL (60-99); HDL Cholesterol 48 mg/dL (>40); LDL Cholesterol Calculated 106 mg/dL (<100); Sodium 142 mmol/L (135-145); Total Protein 7.5 g/dL (6.5-8.0); Triglycerides 70 mg/dL (<150)
[2023-12-17 11:06] LABS: Vitamin D 25-OH Total 32.4 ng/mL (>30)
[2023-12-17 11:22] LABS: Prostate Specific Antigen < 0.10 ng/mL (<0.05-4.0)
[2023-12-17 12:04] LABS: Estimated Average Glucose 151 mg/dL; Hemoglobin A1c % 6.9 % (<6.0)
== END 2023-12-17 08:27 | disposition home or self-care (01) ==
LOC: HO.LAB 08:26
PROVIDERS: Absent Provider Urology; PCP Internal Medicine; Visit Provider Internal Medicine Endocrinology, Diabetes & Metabolism
DX: Z00.00 Encounter for general adult medical examination without abnormal findings (principal); C61 Malignant neoplasm of prostate; E11.65 Type 2 diabetes mellitus with hyperglycemia; E78.5 Hyperlipidemia, unspecified; E55.9 Vitamin D deficiency, unspecified; Z12.5 Encounter for screening for malignant neoplasm of prostate; Z71.3 Dietary counseling and surveillance
CPT/HCPCS: 36415; 80053; 80061; 82043; 82306; 82570; 83036; 84153; 97803

== ENCOUNTER 2023-12-17 12:25 | Outpatient (AMB) | payer OTHER, SELFPAY ==
[2023-12-17 13:04] VITALS: BMI 35.5
--- NOTE | 2023-12-17 13:04 | A.OFFVIS_ITS ---
Intake VS Expanded 12/17/23 13:04 Height 5 ft 7 in Weight 226 lb 13.69 oz BMI 35.5 Intake Visit Reasons: DM/LVM Allergies No Known Allergies [No Known Allergies*] Allergy (Verified 12/18/23 16:02) HPI Nutrition Presentation Details Pt presents for MNT f/u for T2DM Pt reports having 3 meals/day - working on following meal plan and red ucing on read meats Most Recent Diabetes Results: Microalb/Creat Ratio 49.9 ug/mg cr (<30) H 12/17/23 Cholesterol 168 mg/dL (<200) 12/17/23 HDL Cholesterol 48 mg/dL (>40) 12/17/23 Triglycerides 70 mg/dL (<150) 12/17/23 Creatinine 0.86 mg/dL (0.5-1.4) 12/17/23 Blood Urea Nitrogen 22 mg/dL (9-16) H 12/17/23 Sodium 142 mmol/L (135-145) 12/17/23 Potassium 4.0 mmol/L (3.3-5.1) 12/17/23 Chloride 109 mmol/L (96-108) H 12/17/23 Carbon Dioxide 27 mmol/L (22-29) 12/17/23 Calcium 9.6 mg/dL (8.4-10.2) 12/17/23 AST 23 U/L (5-37) 12/17/23 ALT 21 U/L (0-40) 12/17/23 Total Protein 7.5 g/dL (6.5-8.0) 12/17/23 Albumin 3.9 g/dL (3.5-5.0) 12/17/23 [facility] Medical History Hypovitaminosis D History of prostate cancer Diabetes Pure hypercholesterolemia Essential hypertension Surgical History History of colonoscopy Family History Father Murder Mother No problems noted. Daughter Healthy adult Brother No problems noted. Sister No problems noted. Son No problems noted. Social History Household Members: None Housing: Apartment Alcohol intake: never Patient Tobacco Use Status: Never used Tobacco e-Cigarette/Vaping Use: Never Used Second Hand Smoke Exposure: No service: No Current occupational status: retired Cognitive needs: Yes (CANE) Hearing needs: No Vision needs: Yes Assessment & Plan Assessment & Plan (1) DMII (diabetes mellitus, type 2): Code(s): E11.9 - Type 2 diabetes mellitus without complications Qualifiers: Diabetes mellitus complication status: with hyperglycemia Diabetes mellitus correction insulin use: without exterminator termite use Qualified Code(s): E11.65 - Type 2 diabetes mellitus with hyperglycemia Plan: Educate Pt on [id number] bowen meal plan ? Pt's set goal (Date: 12/24/22 ): have a fruit as a snack instead of pastries at follow up (Date: ): met 25% 50% 100% Not met Used wt : 107 kg (103 kg on 11/2023) Est kcal as per MSJ: 2121 (40% carb, 30% fat/prot) Est fluid needs: 2600 ml/d (25 ml/kg bw) Rec fiber: increase to 8-10 g per day and gradually increase as tolerated up to 35 g/d Rec Na: < 2000 mg /d Educate patient on: (R= Reviewed, V = verbalizes understanding N/R= Needs review N/A= not applicable) * Food sources of carbohydrates and serving adequate serving sizes : R * Difference between complex carbohydrates and simple carbohydrates, role of fiber: R * Differences between fats (MUFA/PUFA/saturated fats, trans fats) and food sources of various fats: R * Food sources of sodium and salt and healthy modifications for heart health and kidney health: R * Vitamins and minerals: N/R * How to interpret food labels: N/R * Healthy Plate method concept: R V * Physical activity: benefits and precaution: R Patient Instructions: Continue working on reducing on fried foods (foods with batter, cook meats in its own fat instead) Have a fruit in place of pastries 2 times a day Mindful of salt in foods/salted foods Coding Level of Care Code Nutr Indiv Subseq (55136) Diagnoses Type 2 diabetes mellitus with hyperglycemia, without long-term current use of insulin E11.65 Diabetes mellitus complication status: with hyperglycemia Diabetes mellitus exterminator termite insulin use: without exterminator termite use Time Spent (min) 30
== END 2023-12-17 15:28 | disposition home or self-care (01) ==
PROVIDERS: PCP Internal Medicine; Visit Provider Dietitian, Registered
DX: E11.65 Type 2 diabetes mellitus with hyperglycemia (principal)

== ENCOUNTER 2023-12-18 16:00 | Outpatient (AMB) | payer OTHER, SELFPAY ==
--- NOTE | 2023-12-18 16:01 | A.OFFVIS_ITS ---
Intake Intake Visit Reasons: 6M PSA(psa?) Intake Note: Patient presents today for a follow-up on: PSA Meds- Finasteride Allergies to Antibiotic- No Known Allergies Blood Thinner- None Geospatial Developer Required: No Allergies No Known Allergies [No Known Allergies*] Allergy (Verified 12/18/23 16:02) HPI HPI Comments History of Present Illness Details Diogo is a pleasant [place] Zealander-speaking male. Accompanied by his son who is translating. He is a patient of Dr. Rodriguez. He is seen for the following urologic conditions - prostate cancer Telemedicine Evaluation 15 min Consultation Doximity Caitlyn Video attempted PSA remains low Continue Q six-month follow-up cease Finasteride Prostate cancer: Unfavorable intermediate treated with radiation therapy completed August 2020 +12 months hormones - 02/13 <0.1 Further evaluation of prostate cancer response ?- unfavorable intermediate low volume clinically localized disease, group 3 PSA 10/15 <0.1 T 183, 02/13 <0.1, 06/15 <0.1, 12/17 <0.1, 06/16 <0.1, 12/18 <0.1 Completed external beam radiation with short-term hormones August 2020 ? Prostate cancer was diagnosed?Dr Jackson 04/13.? Diagnosis was reached by?needle biopsy, for elevated PSA, PSA at diagnosis 02/11 - 10.1, size at TRUS 30cc.? The [place] grade is?March 2020 4+3 = 7 - RBM 30%, RBL 30%, 3+4 = 7 RMM 40%, 3+3 = 6 JANA 5% - Total 105% = 9% total, PNI Neg.? TNM Classification of Malignant Tumours (TNM)?T2.? The [place] (NCCN) risk category is?Intermediate Risk (PSA 10-20, Gl 7, T2) ?Group 3 ?- unfavorable intermediate Therapeutic plan - lab review 6 months [facility] Medical History Hypovitaminosis D History of prostate cancer Diabetes Pure hypercholesterolemia Essential hypertension Surgical History History of colonoscopy Family History Father Murder Mother No problems noted. Daughter Healthy adult Brother No problems noted. Sister No problems noted. Son No problems noted. Social History Household Members: None Housing: Apartment Alcohol intake: never Patient Tobacco Use Status: Never used Tobacco e-Cigarette/Vaping Use: Never Used Second Hand Smoke Exposure: No service: No Current occupational status: retired Cognitive needs: Yes (CANE) Hearing needs: No Vision needs: Yes Review of Systems Const All systems reviewed & are unremarkable except as noted in HPI and below Reports no additional complaints Resp Reports no additional complaints GI Reports no additional complaints Reports as per HPI Musc Reports no additional complaints Physical Exam Telemedicine evaluation Appropriate responses Regular breathing rate and rhythm HEENT Head: Yes normal to inspection Ears: hearing grossly normal bilaterally Eyes General: appearance normal, both eyes and all related structures Neck Neck: Yes normal visual inspection Chest Chest palpation & inspection: normal inspection of the chest Resp Effort & Inspection: normal respiratory effort and able to speak in complete sentences Assessment & Plan Assessment & Plan (1) Prostate cancer: Comment: Unfavorable intermediate external beam radiation with hormones August 2020 Code(s): C61 - Malignant neoplasm of prostate Plan Six-month follow-up PSA Orders: Orders Prostate Specific Antigen 6 Months C61 - Malignant neoplasm of prostate Medications: Discontinued finasteride Discontinued Reason: Doctor's Order 5 mg PO DAILY 90 days 90 tabs 1RF C61 - Malignant neoplasm of prostate Patient Instructions: Imaging studies, laboratory and physical exam results were discussed and reviewed in detail. No major barriers to patient understanding were identified. An opportunity to ask questions regarding the treatment plan was provided. All questions were answered. The patient expressed understanding and agreement with the above treatment plan. The patient is aware they should contact our office by phone for worsening of their current condition or the appearance of new urologic symptoms. Compliance is encouraged with any medications and followup testing that is ordered. It is a privilege to participate in the urologic care of your patient. If you have any questions or concerns regarding treatment for the above conditions, or other urologic issues, please do not hesitate to contact me. The office telephone contact is [phone]. This note is constructed using voice recognition software. While every effort has been made to ensure accuracy infantry assaultman errors may have been included. Yours sincerely, Dr Chapin Jackson MD, [facility] - Urology Providers of Expert, Compassionate Care for the Genitourinary System Telehealth Telehealth Location of provider rendering services: practice address Location of patient: address on file Patient Identification confirmed using: Name, : Yes Telehealth method: video Patient verbally consented to treatment: Yes Patient verbally consented to billing insurance company: Yes Patient informed of any privacy concerns related to visit: Yes Coding Level of Care Code Tele Est Pt Level 4 (79875) Diagnoses Prostate cancer C61
== END 2023-12-18 16:30 ==
LOC: HO.HUSH 16:00
PROVIDERS: PCP Internal Medicine; Visit Provider Urology
DX: C61 Malignant neoplasm of prostate (principal)
CPT/HCPCS: 99213

== ENCOUNTER → 2023-12-18 16:00 | Outpatient (BNVA) | payer OTHER, SELFPAY | PROVIDERS: PCP Internal Medicine; Visit Provider Urology ==

== ENCOUNTER 2024-02-19 08:52 | Outpatient (AMB) | payer OTHER, SELFPAY ==
[2024-02-19 08:54] VITALS: BP 124/78; PULSE 78; BMI 36.3
--- NOTE | 2024-02-19 08:54 | A.OFFVIS_ITS ---
Intake Vital Signs 02/19/24 08:54 Height 5 ft 7 in Weight 231 lb 7.766 oz BMI 36.3 BP 124/78 Blood Pressure Location Lt brachial Position Sitting Pulse 78 Pulse Source Pulse Oximeter Intake Visit Reasons: [id number] Intake Note: Patient presents today to follow up on D2MT. Last Diabetic Eye exam:03/2023 Last Podiatry Visit: 01/21/24 Random Glucose: 130 mg/dl HgA1c: 7.8% 12/04/23 C D Stripper Required: No C D Stripper Name: Patient denied adult educator Accompanied by: Son Allergies No Known Allergies [No Known Allergies*] Allergy (Verified 02/19/24 09:01) Medication List - Last Reconciled 02/19/24 by Sahil Kc MD atorvastatin 40 mg PO BEDTIME 90 days blood sugar diagnostic (FreeStyle Lite Strips) 1 strip miscellaneous TID blood-glucose meter (FreeStyle Lite Meter kit) As directed blood-glucose meter (FreeStyle [place] kit) As directed cholecalciferol (vitamin D3) 25 mcg PO DAILY 90 days dulaglutide (Trulicity) 3 mg (0.5 mL) subcut QWEEK empagliflozin (Jardiance) 25 mg PO QAM 90 days furosemide 20 mg PO Q OTHER DAY 90 days gabapentin 100 mg PO DAILY insulin glargine (Lantus Solostar U-100 Insulin) 18 units (0.18 mL) subcut QPM 90 days lancets (FreeStyle Lancets) Use 1 lancet three times a day lisinopril 5 mg PO DAILY 90 days metformin 1,000 mg PO BID pen needle, diabetic (BD Kesha 2nd Gen Pen Needle) As directed injects once a day trazodone 50 mg PO BEDTIME PRN 30 days Ventolin HFA 90 mcg/actuation (albuterol sulfate) 2 puffs inhalation Q6H PRN 30 days NS HPI HPI Comments History of Present Illness Details 78 YO M who is seen in consultation for T2DM at the request of PCP. Initially diagnosed with T2DM in for 20 yrs . Was initially started on treatment with metformin. Current regimen Trulicity 3 mg Qwkly Jardiance 25 mg metformin 1000 mg BID. Lantus 18 units Dexcom download shows he is using the sensor 64% of the time. Average glucose is 142. Target range is 96% of time with 4% hyperglycemia and no hypoglycemia Denies any hypoglycemia Family history of T2DM in sister . Has eyes checked yearly, last eye exam has exam 03/2024 , denies retinopathy. Denies neuropathy, , sees podiatry. Denies nephropathy, on HERLINDA/ARB. Has HLD, on statin. . Denies CAD. saw diabetes education. [facility] Medical History Hypovitaminosis D History of prostate cancer Diabetes Pure hypercholesterolemia Essential hypertension Surgical History History of colonoscopy Family History Father Murder Mother No problems noted. Daughter Healthy adult Brother No problems noted. Sister No problems noted. Son No problems noted. Social History Household Members: None Housing: Apartment Alcohol intake: never Patient Tobacco Use Status: Never used Tobacco e-Cigarette/Vaping Use: Never Used Second Hand Smoke Exposure: No service: No Current occupational status: retired Cognitive needs: Yes (CANE) Hearing needs: No Vision needs: Yes Physical Exam Vital Signs: Last Vital Signs Pulse 78 02/19/24 08:54 BP 124/78 02/19/24 08:54 BMI result Body Mass Index 36.3 Assessment & Plan Assessment & Plan (1) DMII (diabetes mellitus, type 2): Code(s): E11.9 - Type 2 diabetes mellitus without complications Qualifiers: Diabetes mellitus complication status: with hyperglycemia Diabetes mellitus petroleum terminal plant operator insulin use: without petroleum terminal plant operator use Qualified Code(s): E11.65 - Type 2 diabetes mellitus with hyperglycemia Plan: This is a 77-year-old male with a history of type 2 diabetes being treated with metformin, Jardiance and Trulicity and basal insulin with improved good adequate glycemic control and no known microvascula edwards macrovascular complications At this point, patient is glycemic control is optimized on the current regimen. He can follow up with his primary care provider regarding his diabetes returned back to endocrinology should his HbA1c deteriorate Coding Level of Care Code Est Pt Level 4 (42503) Diagnoses Type 2 diabetes mellitus with hyperglycemia, without long-term current use of insulin E11.65 Diabetes mellitus complication status: with hyperglycemia Diabetes mellitus petroleum terminal plant operator insulin use: without residential use
[2024-02-19 09:08] LABS: Glucose, Whole Blood 130 mg/dL (60-115)
== END 2024-02-19 09:13 | disposition home or self-care (01) ==
PROVIDERS: PCP Internal Medicine; Visit Provider Internal Medicine Endocrinology, Diabetes & Metabolism
DX: E11.65 Type 2 diabetes mellitus with hyperglycemia (principal)
CPT/HCPCS: 99214

== ENCOUNTER → 2024-02-19 08:52 | Outpatient (BNVA) | payer OTHER, SELFPAY | PROVIDERS: PCP Internal Medicine; Visit Provider Internal Medicine Endocrinology, Diabetes & Metabolism | DX: E11.65 Type 2 diabetes mellitus with hyperglycemia (principal); Z79.4 Long term (current) use of insulin; Z79.84 Long term (current) use of oral hypoglycemic drugs | CPT/HCPCS: 82947; 99212 ==

== ENCOUNTER 2024-04-07 15:31 | Outpatient (AMB) | payer OTHER, SELFPAY ==
[2024-04-07 15:33] VITALS: BP 112/60; BMI 35.1
--- NOTE | 2024-04-07 15:33 | MHC.PC.OV ---
Vital Signs 04/07/24 15:33 Height 5 ft 7 in Weight 224 lb BMI 35.1 BP 112/60 Blood Pressure Location Lt brachial Position Sitting Intake Visit Reasons: 4 month f/u Intake Note: Patient here for a 4 month follow up DM Tobacco Sampler Required: No Accompanied by: Daughter Allergies No Known Allergies [No Known Allergies*] Allergy (Verified 04/07/24 15:50) Medication List - Last Reconciled 04/07/24 by Faith Rodriguez MD atorvastatin 40 mg PO BEDTIME 90 days blood sugar diagnostic (FreeStyle Lite Strips) 1 strip miscellaneous TID blood-glucose meter (FreeStyle Lite Meter kit) As directed blood-glucose meter (FreeStyle [place] kit) As directed cholecalciferol (vitamin D3) 25 mcg PO DAILY 90 days dulaglutide (Trulicity) 3 mg (0.5 mL) subcut QWEEK empagliflozin (Jardiance) 25 mg PO QAM 90 days furosemide 20 mg PO Q OTHER DAY 90 days gabapentin 100 mg PO DAILY insulin glargine (Lantus Solostar U-100 Insulin) 18 units (0.18 mL) subcut QPM 90 days lancets (FreeStyle Lancets) Use 1 lancet three times a day lisinopril 5 mg PO DAILY 90 days metformin 1,000 mg PO BID pen needle, diabetic (BD Kesha 2nd Gen Pen Needle) As directed injects once a day trazodone 50 mg PO BEDTIME PRN 30 days Ventolin HFA 90 mcg/actuation (albuterol sulfate) 2 puffs inhalation Q6H PRN 30 days NS Tobacco use date assessed: 12/04/23 Fall risk assessment: 1 Fall in past year Last assessed Fall Risk: 04/07/24 Dental Screening Dental Screen Date: 12/04/23 HPI HPI Comments History of Present Illness Details This is a 78-year-old male with diabetes mellitus type 2 on long-term current use of insulin, hypertension, hyperlipidemia and mild asthma that comes accompanied by daughter for follow-up on his conditions. He use a cane for gait stability due to knee osteoarthritis and for long distances use a scooter and will benefit from a reflecting vest in order to be seen by other people at night. He does have lumbar degenerative disc disease with knee osteoarthritis and this makes him difficult to change from sitting to standing position. Will benefit from a power lift recliner. A1c within goal. Blood pressure stable. Last LDL was not on goal and this will be repeated. He use rescue inhaler less than once a month for his asthma. He is obese with a BMI of 35.1 and was advised to diet and exercise to reach BMI goal less than 30. [facility], [facility] Medical History (Updated 04/07/24 @ 16:13 by Faith Rodriguez MD) Hypovitaminosis D History of prostate cancer Diabetes Pure hypercholesterolemia Essential hypertension Surgical History History of colonoscopy Family History Father Murder Mother No problems noted. Daughter Healthy adult Brother No problems noted. Sister No problems noted. Son No problems noted. Social History Household Members: None Housing: Apartment Alcohol intake: never Patient Tobacco Use Status: Never used Tobacco e-Cigarette/Vaping Use: Never Used Second Hand Smoke Exposure: No service: No Current occupational status: retired Cognitive needs: Yes (CANE) Hearing needs: No Vision needs: Yes Questionnaire Thrive Questionnaire Date Thrive assessed: 12/04/23 DOMONIQUE-7 AMB Questionnaire DOMONIQUE-7 Date DOMONIQUE - 7 assessed: 12/04/23 Source: Developed by Drs. Sahil Welch, Maine Turpin, Jemal Rees and colleagues, with an educational lorena from [employer]. Review of Systems Const All systems reviewed & are unremarkable except as noted in HPI and below Eyes Reports no additional complaints, Denies change in vision and Denies other visual disturbances Card Denies chest pain at rest, Denies chest pain with activity, Denies edema, Denies irregular heart rhythm, Denies claudication, Denies dyspnea, Denies dyspnea on exertion, Denies orthopnea, Denies paroxysmal nocturnal dyspnea and Denies slow heart rate Resp Denies cough, Denies dyspnea and Denies dyspnea on exertion Musc Reports back pain, Reports arthralgias and Reports muscle weakness Physical exam (Primary Care) Vital Signs: Last Vital Signs BP 112/60 04/07/24 15:33 BMI result Body Mass Index 35.1 BMI Assessment/Plan discussion: High BMI High, discussed plan: lifestyle, weight reduction, dietary and physical activity Tobacco/Smoking Status: Tobacco use Status Tobacco use date assessed 12/04/23 04/07/24 15:41 Patient Tobacco Use Status Never used Tobacco 04/07/24 15:41 e-Cigarette/Vaping Use Never Used 04/07/24 15:41 Thrive Assessment: Date of Thrive Assessment Date Thrive assessed 12/04/23 04/07/24 15:41 Const Limitations: ambulation with cane Eyes General: appearance normal, both eyes and all related structures Eyelids: Yes eyelids normal Conjunctivae: conjunctivae normal Neck Neck: Yes normal visual inspection and Yes supple Resp Effort & Inspection: normal respiratory effort Auscultation: clear to auscultation bilaterally Cardio Jugular venous distension: no JVD Rate: regular rate Rhythm: regular rhythm Heart sounds: S1 normal heart sound present and S2 normal heart sound present Extrem General: Yes full ROM Results AMB Hemoglobin A1c AMB Hemoglobin A1c 6.5 % Last Edit by TWILA Murrell on 04/07/24 15:46 Results Reviewed Results Reviewed: Laboratory Last Values Hgb A1c (Clinic) 6.5 % (4.0-6.0) H 04/07/24 15:43 Assessment and Plan Assessment & Plan (1) Mild asthma: Code(s): J45.909 - Unspecified asthma, uncomplicated Qualifiers: Asthma persistence: persistent Asthma complication type: uncomplicated Qualified Code(s): J45.30 - Mild persistent asthma, uncomplicated Plan: Use rescue inhaler as needed. (2) DMII (diabetes mellitus, type 2): Code(s): E11.9 - Type 2 diabetes mellitus without complications Qualifiers: Diabetes mellitus care home insulin use: without care home use Diabetes mellitus complication status: with hyperglycemia Qualified Code(s): E11.65 - Type 2 diabetes mellitus with hyperglycemia Plan: Continue metformin and insulin. A1c goal is equal or less than 7%. (3) Essential hypertension: Code(s): I10 - Essential (primary) hypertension Plan: Continue lisinopril. Blood pressure goal is equal or less than 130/80. (4) Knee osteoarthritis: Code(s): M17.9 - Osteoarthritis of knee, unspecified Qualifiers: Osteoarthritis type: primary Laterality: bilateral Qualified Code(s): M17.0 - Bilateral primary osteoarthritis of knee Plan: Continue the use of a cane as needed and scooter for long distance. Orders: Orders Vitamin D 25-OH Total 4 Months E55.9 - Vitamin D deficiency, unspecified Lipid Panel 4 Months E78.5 - Hyperlipidemia, unspecified Comprehensive [place]. Panel Fast 4 Months E11.65 - Type 2 diabetes mellitus with hyperglycemia Microalbumin, Random (w Creat) 4 Months E11.9 - Type 2 diabetes mellitus without complications Medications: New [reflecting vest] As directed 1 ea 0RF Z99.89 - Dependence on other enabling machines and devices [powerlift recliner] As directed 1 ea 0RF M17.9 - Osteoarthritis of knee, unspecified, M51.36 - Other intervertebral disc degeneration, lumbar region cane As directed 1 ea 0RF M17.9 - Osteoarthritis of knee, unspecified, M51.36 - Other intervertebral disc degeneration, lumbar region Coding Level of Care Code Est Pt Level 4 (03713) Diagnoses Mild persistent asthma without complication J45.30 Asthma persistence: persistent Asthma complication type: uncomplicated Type 2 diabetes mellitus with hyperglycemia, without long-term current use of insulin E11.65 Diabetes mellitus assistant terminal manager insulin use: without assistant terminal manager use Diabetes mellitus complication status: with hyperglycemia Essential hypertension I10 Primary osteoarthritis of both knees M17.0 Osteoarthritis type: primary Laterality: bilateral Time Spent (min) 23
== END 2024-04-07 15:59 | disposition home or self-care (01) ==
PROVIDERS: PCP Internal Medicine; Visit Provider Internal Medicine
DX: J45.30 Mild persistent asthma, uncomplicated (principal); E11.65 Type 2 diabetes mellitus with hyperglycemia; I10 Essential (primary) hypertension; M17.0 Bilateral primary osteoarthritis of knee; Z13.9 Encounter for screening, unspecified
CPT/HCPCS: 83036; 99214

== ENCOUNTER → 2024-04-16 12:26 | Outpatient (BNVA) | payer OTHER, SELFPAY | PROVIDERS: PCP Internal Medicine; Visit Provider Nurse Practitioner ==

== ENCOUNTER 2024-05-08 09:50 | Outpatient (AMB) | payer OTHER, SELFPAY ==
--- NOTE | 2024-05-08 09:54 | A.OFFVIS_ITS ---
Vital Signs 05/08/24 09:59 Height 5 ft 7 in Weight 230 lb 6.129 oz BMI 36.1 BP 100/62 Blood Pressure Location Rt brachial Position Sitting Pulse 85 Pulse Source Pulse Oximeter Intake Visit Reasons: T2DM/CONFIRMED Intake Note: Patient present today to follow up on Type 2 Diabetes Mellitus. Last seen by Dr. Kc on 02/19/2024. Patient receives DME supplies through: [employer] Last Diabetic Eye exam: Has an upcoming appointment 06/30/2024 Last Podiatry Visit: 03/24/2024 Random Glucose: 109 mg/dl HgA1C: 6.5% 04/07/2024 Science Technician Required: No Science Technician Name: Refusal Signed Accompanied by: Daughter Allergies No Known Allergies [No Known Allergies*] Allergy (Verified 05/08/24 09:59) HPI HPI T2DM/CONFIRMED: Details: Patient is a 78 YO M who is seen in consultation for T2DM w/ daughter Maddy who translates. DM: Initially diagnosed with T2DM in for 20 yrs. He has seen a cash accounting clerk and tobacco educator. Was initially started on treatment with metformin. Current regimen Trulicity 3 mg Qwkly Jardiance 25 mg metformin 1000 mg BID. Lantus 18 units His A1c was 6.5. Dexcom download shows he is using the sensor 62% of the time. Average glucose is 130. Target range is 95% of time with 5% hyperglycemia and no hypoglycemia Denies any hypoglycemia Family history of T2DM in sister . Has eyes checked yearly, eye exam booked 07/18 , denies retinopathy. Denies neuropathy, , sees podiatry- utd 03/18. Denies nephropathy, on HERLINDA/ARB. Has HLD, on statin. . Denies CAD. CV: Blood pressure today in the office is 100/62. He is currently on lisinopril 5 mg inferior asthma 20 mg every other day. His cholesterol is controlled atorvastatin 40 mg. [facility] Medical History (Updated 05/08/24 @ 10:07 by Chiquis Reid PA-C) Controlled type 2 diabetes mellitus with insulin therapy Hypovitaminosis D History of prostate cancer Diabetes Pure hypercholesterolemia Essential hypertension Surgical History History of colonoscopy Family History Father Murder Mother No problems noted. Daughter Healthy adult Brother No problems noted. Sister No problems noted. Son No problems noted. Social History Household Members: None Housing: Apartment Alcohol intake: never Patient Tobacco Use Status: Never used Tobacco e-Cigarette/Vaping Use: Never Used Second Hand Smoke Exposure: No service: No Current occupational status: retired Cognitive needs: Yes (CANE) Hearing needs: No Vision needs: Yes Physical Exam Vital Signs: BMI result Body Mass Index 36.1 Const Orientation/consciousness: patient oriented x3 Neck Neck: Yes no lymphadenopathy Thyroid: Thyroid normal Carotids: no bruits Resp Auscultation: clear to auscultation bilaterally Cardio Rate: regular rate Rhythm: regular rhythm Heart sounds: S1 normal heart sound present and S2 normal heart sound present Peripheral pulses: dorsalis pedis present Neuro General: patient oriented x3 and no focal motor deficits Extrem Other: Monofilament sensation intact bilaterally. Vibratory sensation not felt. Skin intact. General: Yes normal to inspection Results Reviewed Results Reviewed: Laboratory Tests 12/17/23 04/07/24 09:00 15:43 Creatinine 0.86 Estimated GFR > 60 Hgb A1c (Clinic) 6.5 H AST 23 ALT 21 Alkaline Phosphatase 64 Triglycerides 70 Cholesterol 168 LDL Cholesterol, Calc 106 H HDL Cholesterol 48 Assessment & Plan Assessment & Plan (1) Controlled type 2 diabetes mellitus with insulin therapy: Code(s): E11.9 - Type 2 diabetes mellitus without complications; Z79.4 - customer advisor (current) use of insulin Category: Medical Plan: Well-controlled. Continue current regimen. Labs ordered prior to next appointment. Follow-up in 3 months. Sooner if needed. Patient understands and agrees with the plan. (2) Essential hypertension: Code(s): I10 - Essential (primary) hypertension Category: Medical Plan: Continue current regimen (3) Pure hypercholesterolemia: Code(s): E78.00 - Pure hypercholesterolemia, unspecified Category: Medical Plan: Continue atorvastatin. Reviewed last LFTs lipids. Orders: Orders Hemoglobin A1c Today E11.9 - Type 2 diabetes mellitus without complications, Z79.4 - customer advisor (current) use of insulin Microalbumin, Random (w Creat) Today E11.9 - Type 2 diabetes mellitus without complications, Z79.4 - customer advisor (current) use of insulin Patient Instructions: CARLEY- vibratory sensation in feet not present. monofilament sensation intact bilaterally. Coding Level of Care Code Est Pt Level 4 (38865) Complex EM visit Add On G2211 Diagnoses Controlled type 2 diabetes mellitus with insulin therapy E11.9; Z79.4 Essential hypertension I10 Pure hypercholesterolemia E78.00
[2024-05-08 09:59] VITALS: BP 100/62; PULSE 85; BMI 36.1
[2024-05-08 10:10] LABS: Glucose, Whole Blood 109 mg/dL (60-115)
== END 2024-05-08 10:31 | disposition home or self-care (01) ==
PROVIDERS: PCP Internal Medicine; Visit Provider Physician Assistant
DX: E11.9 Type 2 diabetes mellitus without complications (principal); Z79.4 Long term (current) use of insulin; I10 Essential (primary) hypertension; E78.00 Pure hypercholesterolemia, unspecified
CPT/HCPCS: 99214; G2211

== ENCOUNTER → 2024-05-08 09:50 | Outpatient (BNVA) | payer OTHER, SELFPAY | PROVIDERS: PCP Internal Medicine; Visit Provider Physician Assistant | DX: E11.9 Type 2 diabetes mellitus without complications (principal); I10 Essential (primary) hypertension; E78.00 Pure hypercholesterolemia, unspecified; Z79.4 Long term (current) use of insulin; Z79.899 Other long term (current) drug therapy | CPT/HCPCS: 82947; 99212 ==

== ENCOUNTER 2024-06-19 09:48 | Outpatient (AMB) | payer OTHER, SELFPAY ==
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
[2024-06-19 09:54] VITALS: BP 120/60; PULSE 98; O2SAT 96; BMI 34.7
== END 2024-06-19 10:40 | disposition home or self-care (01) ==
PROVIDERS: PCP Internal Medicine; Visit Provider Nurse Practitioner Family
DX: R79.89 Other specified abnormal findings of blood chemistry (principal); T14.90XA Injury, unspecified, initial encounter; R65.10 Systemic inflammatory response syndrome (SIRS) of non-infectious origin without acute organ dysfunction
CPT/HCPCS: 99214

== ENCOUNTER 2024-07-30 16:01 | Outpatient (AMB) | payer OTHER, SELFPAY ==
[2024-07-30 16:07] VITALS: BP 120/62; BMI 33.7
--- NOTE | 2024-07-30 16:07 | A.OFFPC_ITS ---
Vital Signs 07/30/24 16:07 Height 5 ft 7 in Weight 215 lb BMI 33.7 BP 120/62 Blood Pressure Location Lt brachial Position Sitting Intake Visit Reasons: Annual exam Intake Note: Patient here for an annual physical exam Silverware Supervisor Required: No Accompanied by: Daughter Allergies No Known Allergies [No Known Allergies*] Allergy (Verified 07/30/24 16:21) Medication List - Last Reconciled 07/30/24 by Faith Rodriguez MD [3 inch riser enlongated toilet seat As directed] atorvastatin 40 mg PO BEDTIME 90 days bisacodyl (Dulcolax (bisacodyl)) 10 mg (2 x 5 mg) PO BEDTIME 2 days blood pressure monitor As directed blood sugar diagnostic (FreeStyle Lite Strips) 1 strip miscellaneous TID blood-glucose meter (FreeStyle Lite Meter kit) As directed blood-glucose meter (FreeStyle [place] kit) As directed cane As directed cholecalciferol (vitamin D3) 25 mcg PO DAILY 90 days dulaglutide (Trulicity) 1.5 mg (0.5 mL) subcut QWEEK 90 days empagliflozin (Jardiance) 25 mg PO QAM 90 days furosemide 20 mg PO Q OTHER DAY 90 days gabapentin 100 mg PO DAILY Grabber As directed insulin glargine (Lantus Solostar U-100 Insulin) 18 units (0.18 mL) subcut QPM 90 days lancets (FreeStyle Lancets) Use 1 lancet three times a day lisinopril 5 mg PO DAILY 90 days metformin 1,000 mg PO BID peg 3350-electrolytes 236-22.74-6.74 -5.86 gram (Golytely) 240 mL PO Q10M 1 day pen needle, diabetic (BD Kesha 2nd Gen Pen Needle) As directed injects once a day [powerlift recliner As directed] [reflecting vest As directed] trazodone 50 mg PO BEDTIME PRN 30 days Ventolin HFA 90 mcg/actuation (albuterol sulfate) 2 puffs inhalation Q6H PRN 30 days NS walker As directed Tobacco use date assessed: 06/19/24 Fall risk assessment: 1 Fall in past year Last assessed Fall Risk: 07/30/24 Dental Screening Dental Screen Date: 07/30/24 Did you have a dental visit in the last 12 months?: No Did you have a dental problem in the last 6 months where you did not have access to dental care?: No Was dental information given to patient?: Patient has dentist HPI HPI Comments History of Present Illness Details This is a 78-year-old male diabetes mellitus type 2 that comes accompanied by daughter for his physical exam. A1c within goal. 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 No chest pain or shortness on breath. Walks with a cane for gait stability. Molst were completed today. [facility] Medical History Controlled type 2 diabetes mellitus with insulin therapy Hypovitaminosis D History of prostate cancer Diabetes Pure hypercholesterolemia Essential hypertension Surgical History History of colonoscopy Family History Father Murder Mother No problems noted. Daughter Healthy adult Brother No problems noted. Sister No problems noted. Son No problems noted. Social History Household Members: None Housing: Apartment Alcohol intake: never Patient Tobacco Use Status: Never used Tobacco e-Cigarette/Vaping Use: Never Used Second Hand Smoke Exposure: No service: No Current occupational status: retired Cognitive needs: Yes (CANE) Hearing needs: No Vision needs: Yes Questionnaire Thrive Questionnaire Date Thrive assessed: 07/23/24 I am a: Patient What is your living situation today?: I have a steady place to live Within the past 12 months, did the food you bought not last and you didn't have the money to get more?: Never true Within the past 12 months, did you worry whether your food would run out before you got money to buy more?: Never true Do you have trouble paying for medicines?: No Do you have trouble getting transportation to medical appointments?: No Do you have trouble paying your heating and electricity bill?: No Do you have trouble taking care of your child, family member or friend?: I choose not to answer this question Do you have trouble with day-to-day activities such as bathing, preparing meals, shopping, managing finances, etc.?: I choose not to answer this question Are you currently unemployed and looking for a job?: I choose not to answer this question Are you interested in more education?: I choose not to answer this question Please select the resources that you would like help with: None Currently or been in a relationship where the following occur: No concerns reported THRIVE Score: 0 AUDIT C Alcohol Use Questionnaire (AUDIT-C) 1. How often do you have a drink containing alcohol?: Never Total Score: 0 Score Reviewed/Action Taken: No DOMONIQUE-7 AMB Questionnaire DOMONIQUE-7 Date DOMONIQUE - 7 assessed: 12/04/23 Feeling nervous, anxious, or on edge: 0 = Not at all Not being able to stop or control worryin = Not at all Worrying too much about different things: 0 = Not at all Trouble relaxin = Not at all Being so restless that it is hard to sit still: 0 = Not at all Becoming easily annoyed or irritable: 0 = Not at all Feeling afraid as if something awful might happen: 0 = Not at all Total DOMONIQUE-7 score (0-4 normal; 5-9 mild; 10-14 moderate; 15-21 severe): 0 Source: Developed by Drs. Sahil Welch, Maine Turpin, Jemal Rees and colleagues, with an educational lorena from [employer]. DOMONIQUE-7 Assessment Billing DOMONIQUE-7 Assessment Tool: DOMONIQUE-7 Assessment 14248 Review of Systems Const All systems reviewed & are unremarkable except as noted in HPI and below Card Denies chest pain at rest, Denies chest pain with activity, Denies edema, Denies irregular heart rhythm, Denies claudication, Denies dyspnea, Denies dyspnea on exertion, Denies orthopnea, Denies paroxysmal nocturnal dyspnea and Denies slow heart rate Resp Denies cough, Denies dyspnea and Denies dyspnea on exertion GI Denies abdominal pain, Denies change in bowel habits, Denies excessive flatus, Denies nausea and Denies vomiting Denies urinary hesitancy, Denies urinary incontinence and Denies urinary urgency Musc Denies abnormal gait, Denies atrophy, Denies deformity and Denies limited range of motion Skin/Breast Denies bleeding lesions, Denies changing lesions and Denies rash Neuro Denies abnormal gait, Denies behavioral changes and Denies lack of coordination Psych Denies behavioral changes Physical exam (Primary Care) Vital Signs: Last Vital Signs BP 120/62 07/30/24 16:07 BMI result Body Mass Index 33.7 BMI Assessment/Plan discussion: High BMI High, discussed plan: lifestyle, weight reduction, dietary and physical activity Tobacco/Smoking Status: Tobacco use Status Tobacco use date assessed 06/19/24 07/30/24 16:11 Patient Tobacco Use Status Never used Tobacco 07/30/24 16:11 e-Cigarette/Vaping Use Never Used 07/30/24 16:11 Thrive Assessment: Date of Thrive Assessment Date Thrive assessed 07/23/24 07/30/24 16:11 Currently or been in a relationship where the following occur: No concerns reported HENOK Head: Yes normal to inspection, Yes normocephalic and Yes atraumatic Ears: external ears normal Eyes General: appearance normal, both eyes and all related structures Eyelids: Yes eyelids normal Conjunctivae: conjunctivae normal Neck Neck: Yes normal visual inspection and Yes supple Resp Effort & Inspection: normal respiratory effort Auscultation: clear to auscultation bilaterally Cardio Jugular venous distension: no JVD Rate: regular rate Rhythm: regular rhythm Heart sounds: S1 normal heart sound present and S2 normal heart sound present GI Inspection: Yes normal to inspection Palpation (GI): Soft to palpation and nontender Auscultation: normal bowel sounds Skin General skin exam: no rashes or lesions noted Neuro General: no focal motor deficits Extrem General: Yes full ROM Psych Appearance: grossly normal Office Procedures Advance Care Planning Advance Care Planning discussion: Completed/Scanned Date of discussion: 07/31/24 Who was present: Patient, daughter and me Forms completed: MOLST Time spent: 1-15 minutes, on File Actual minutes spent: 5 Results AMB Hemoglobin A1c AMB Hemoglobin A1c 6.7 % Last Edit by TWILA Murrell on 07/30/24 16:1 5 Results Reviewed Results Reviewed: Laboratory Last Values Hgb A1c (Clinic) 6.7 % (4.0-6.0) H 07/30/24 16:12 Assessment and Plan Assessment & Plan (1) Physical exam: Code(s): Z00.00 - Encounter for general adult medical examination without abnormal findings Plan: Repeat in a year. (2) DMII (diabetes mellitus, type 2): Code(s): E11.9 - Type 2 diabetes mellitus without complications Qualifiers: Diabetes mellitus custodial insulin use: without manager long term care use Diabetes mellitus complication status: with hyperglycemia Qualified Code(s): E11.65 - Type 2 diabetes mellitus with hyperglycemia Plan: Continue Trulicity or Jardiance. A1c goal is equal or less than 7% Orders: Orders Comprehensive [place]. Panel Fast 07/30/24 E11.9 - Type 2 diabetes mellitus without complications, Z79.4 - FDC (current) use of insulin AMB Hemoglobin A1c 07/30/24 E11.65 - Type 2 diabetes mellitus with hyperglycemia Lipid Panel 07/30/24 E78.5 - Hyperlipidemia, unspecified Microalbumin, Random (w Creat) 07/30/24 E11.9 - Type 2 diabetes mellitus without complications Vitamin D 25-OH Total 07/30/24 E55.9 - Vitamin D deficiency, unspecified Coding Level of Care Code Est Pt Prev Care >65y(62525) Diagnoses Physical exam Z00.00 Type 2 diabetes mellitus with hyperglycemia, without long-term current use of insulin E11.65 Diabetes mellitus custodial insulin use: without custodial use Diabetes mellitus complication status: with hyperglycemia CPT Codes Advance Care Planning - Time spent: 1-15 minutes, on File ([id number]) Additional Codes DOMONIQUE-7 Assessment Billing - DOMONIQUE-7 Assessment Tool: DOMONIQUE-7 Assessment 27375 ([id number]) Time Spent (min) 35
== END 2024-07-30 16:43 | disposition home or self-care (01) ==
PROVIDERS: PCP Internal Medicine; Visit Provider Internal Medicine
DX: E11.65 Type 2 diabetes mellitus with hyperglycemia (principal)
CPT/HCPCS: 1123F; 83036; 99397

== ENCOUNTER 2024-08-03 14:49 | Outpatient (AMB) | payer OTHER, SELFPAY ==
--- NOTE | 2024-08-03 14:57 | MHC.OFFVIS ---
Vital Signs 08/03/24 14:58 Height 5 ft 7 in Weight 222 lb 3.615 oz BMI 34.8 BP 90/48 L Blood Pressure Location Rt brachial Position Sitting Pulse 83 Pulse Source Pulse Oximeter Intake Visit Reasons: T2DM/LVM Intake Note: Patient presents today for D2MT follow up visit. Last Diabetic Eye exam: 06/2024 Last Podiatry Visit: Patient has upcoming appt. Random Glucose:157 mg/dl HgA1c: 6.7% 07/30/24 Business Planning Director Required: Yes Business Planning Director Language: Stock Worker And Deliverer Services: Business Planning Director Present Business Planning Director Name: Diamond Information Interpreted: non-clinical & clinical Accompanied by: Son in law Allergies No Known Allergies [No Known Allergies*] Allergy (Verified 08/03/24 15:06) HPI HPI T2DM/LVM: Details: Patient is a 78 YO M who is seen in consultation for T2DM. He is here today with his son. Mame helps with translation. DM: Initially diagnosed with T2DM in for 20 yrs. He has seen a protection mgr and clinical informatics educator. Was initially started on treatment with metformin. Current regimen Trulicity 3 mg Qwkly Jardiance 25 mg metformin 1000 mg BID. Lantus 18 units His A1c was 6.7. Dexcom download shows he is using the sensor 42% of the time. Average glucose is 130. Target range is 95% of time with 5% hyperglycemia and no hypoglycemia Denies any hypoglycemia Family history of T2DM in sister . Has eyes checked yearly, eye exam booked 07/18 , denies retinopathy. Denies neuropathy, , sees podiatry- utd 03/18. Denies nephropathy, on HERLINDA/ARB. Has HLD, on statin. . Denies CAD. CV: Blood pressure today in the office is 90/48. He is currently on lisinopril 5 mg and lasix 20 mg every other day. His cholesterol is controlled atorvastatin 40 mg. He has not had much water today. He does not feel dizzy. Denies any chest pain or shortness on breath. Since states that he has not done much yet today and he thinks that is why it is on the lower side. It was just normal at his PCPs office. They do check it at home and it is usually normal. [facility]LY [facility] Medical History Controlled type 2 diabetes mellitus with insulin therapy Hypovitaminosis D History of prostate cancer Diabetes Pure hypercholesterolemia Essential hypertension Surgical History History of colonoscopy Family History Father Murder Mother No problems noted. Daughter Healthy adult Brother No problems noted. Sister No problems noted. Son No problems noted. Social History Household Members: None Housing: Apartment Alcohol intake: never Patient Tobacco Use Status: Never used Tobacco e-Cigarette/Vaping Use: Never Used Second Hand Smoke Exposure: No service: No Current occupational status: retired Cognitive needs: Yes (CANE) Hearing needs: No Vision needs: Yes Physical Exam Vital Signs: Last Vital Signs Pulse 83 08/03/24 14:58 BP 90/48 L 08/03/24 14:58 BMI result Body Mass Index 34.8 Const Orientation/consciousness: patient oriented x3 Neck Neck: Yes no lymphadenopathy Thyroid: Thyroid normal Carotids: no bruits Resp Auscultation: clear to auscultation bilaterally Cardio Rate: regular rate Rhythm: regular rhythm Heart sounds: S1 normal heart sound present and S2 normal heart sound present Peripheral pulses: dorsalis pedis present Neuro General: patient oriented x3, gait normal and no focal motor deficits Extrem Other: Monofilament sensation intact bilaterally. Vibratory sensation intact bilaterally. Skin intact. General: Yes normal to inspection Results Reviewed Results Reviewed: Laboratory Last Values Glucose (Clinic) 157 mg/dL (60-115) H 08/03/24 15:08 Laboratory Tests 12/17/23 07/30/24 08/03/24 08:56 16:12 15:08 Glucose (Clinic) 157 H Hgb A1c (Clinic) 6.7 H Urine Creatinine 100.02 Urine Microalbumin 50.0 Microalb/Creat Ratio 49.9 H Assessment & Plan Assessment & Plan (1) Controlled type 2 diabetes mellitus with insulin therapy: Code(s): E11.9 - Type 2 diabetes mellitus without complications; Z79.4 - fabrication inspector (current) use of insulin Category: Medical Plan: Continue current regimen. Follow up in 3 months. Sooner if needed. Labs ordered to do prior to appointment. (2) Essential hypertension: Code(s): I10 - Essential (primary) hypertension Category: Medical Plan: Discussed the blood pressure is on the lower side today. He is going to go home and monitor and hydrate. He we will keep us posted with his blood pressures. Coding Level of Care Code Est Pt Level 4 (51522) Complex EM visit Add On G2211 Diagnoses Controlled type 2 diabetes mellitus with insulin therapy E11.9; Z79.4 Essential hypertension I10
[2024-08-03 14:58] VITALS: BP 90/48; PULSE 83; BMI 34.8
[2024-08-03 15:13] LABS: Glucose, Whole Blood 157 mg/dL (60-115)
== END 2024-08-03 15:36 | disposition home or self-care (01) ==
PROVIDERS: PCP Internal Medicine; Visit Provider Physician Assistant
DX: E11.9 Type 2 diabetes mellitus without complications (principal); Z79.4 Long term (current) use of insulin; I10 Essential (primary) hypertension
CPT/HCPCS: 99214; G2211

== ENCOUNTER → 2024-08-03 14:49 | Outpatient (BNVA) | payer OTHER, SELFPAY | PROVIDERS: PCP Internal Medicine; Visit Provider Physician Assistant | DX: E11.9 Type 2 diabetes mellitus without complications (principal); I10 Essential (primary) hypertension; Z79.4 Long term (current) use of insulin | CPT/HCPCS: 82947; 99212 ==

== ENCOUNTER 2024-10-12 07:20 | Day surgery (SDC) | payer OTHER, SELFPAY ==
[2024-10-08 11:14] VITALS: BMI 34.8
--- NOTE | 2024-10-09 09:29 | HO.ANESPROP2 ---
Documented by User: Milagros Baez NP 10/09/24 09:32 HPI - Anesthesia Eval Consult details Narrative: 78yo M for Colonoscopy Anesthesia Pre-Procedure Meds Is the patient on any of the following meds?: GLP1/DPP4 and SGLT2 Inhib PMFSH Active Problems Active Problems: All Active Problems Controlled type 2 diabetes mellitus with insulin therapy (Acute) Pre-op examination (Acute) Does mobilize using assistive scooter (Acute) Knee osteoarthritis (Acute) Lumbar degenerative disc disease (Acute) Insomnia (Acute) Mild asthma (Acute) Chronic UTI (urinary tract infection) (Acute) Transaminitis (Acute) Physical exam (Acute) Hypovitaminosis D (Acute) Hemorrhoids (Acute) DMII (diabetes mellitus, type 2) (Acute) Prostate cancer (Acute) Tubulovillous adenoma of colon (Acute) Gallstones (Acute) Pure hypercholesterolemia (Acute) Essential hypertension (Acute) Past Medical History Medical History Controlled type 2 diabetes mellitus with insulin therapy Hypovitaminosis D History of prostate cancer Diabetes Pure hypercholesterolemia Essential hypertension Family History Family History Father Murder Mother No problems noted. Daughter Healthy adult Brother No problems noted. Sister No problems noted. Son No problems noted. Surgical History Surgical History History of colonoscopy Social History Social History Household Members: None Housing: Apartment Are you a primary home care administrator to a significant other at home: No Do you presently have visiting nurse or other home services: No Alcohol intake: never Patient Tobacco Use Status: Never used Tobacco e-Cigarette/Vaping Use: Never Used Second Hand Smoke Exposure: No Have you been hit, kicked, punched, or otherwise hurt by someone within the past year? If so, by whom?: No Advance Directives: No Advance Directives Information Provided: Yes Recently lost weight without trying: No Eating poorly because of decreased appetite: No Nutrition Risks: No Nutritional Risk Poor oral hygiene: No (NO TEETH) service: No Current occupational status: retired Cognitive needs: Yes (CANE) Hearing needs: No Vision needs: Yes Meds Allergies Allergy/AdvReac Type Severity Reaction Status Date / Time No Known Allergies Allergy Verified 08/03/24 15:06 [No Known Allergies*] Home Medications ?Medication ?Instructions ?Recorded ?Confirmed ?Last Taken ?Type blood-glucose meter (FreeStyle 11/30/22 07/30/24 Unknown History [place] kit) Exam Height,Weight and Vital Signs: Height 5 ft 7 in Weight 100.698 kg Assessment and Plan Assessment Anesthesia Assessment: Chart Reviewed Documented by User: Payton Mccrary MD 10/12/24 08:25 PMFSH Past Medical History Medical History Controlled type 2 diabetes mellitus with insulin therapy Hypovitaminosis D History of prostate cancer Diabetes Pure hypercholesterolemia Essential hypertension Family History Family History Father Murder Mother No problems noted. Daughter Healthy adult Brother No problems noted. Sister No problems noted. Son No problems noted. Family history of problems with anesthesia: No Surgical History Surgical History History of colonoscopy History of Problems with Anesthesia: No Social History Social History Household Members: None Housing: Apartment Are you a primary home care administrator to a significant other at home: No Do you presently have visiting nurse or other home services: No Alcohol intake: never Patient Tobacco Use Status: Never used Tobacco e-Cigarette/Vaping Use: Never Used Second Hand Smoke Exposure: No Have you been hit, kicked, punched, or otherwise hurt by someone within the past year? If so, by whom?: No Advance Directives: No Advance Directives Information Provided: Yes Recently lost weight without trying: No Eating poorly because of decreased appetite: No Nutrition Risks: No Nutritional Risk Poor oral hygiene: No (NO TEETH) service: No Current occupational status: retired Cognitive needs: Yes (CANE) Hearing needs: No Vision needs: Yes Meds Allergies Allergy/AdvReac Type Severity Reaction Status Date / Time No Known Allergies Allergy Verified 08/03/24 15:06 [No Known Allergies*] Home Medications ?Medication ?Instructions ?Recorded ?Confirmed ?Last Taken ?Type blood-glucose meter (FreeStyle 11/30/22 07/30/24 Unknown History [place] kit) Exam Airway Mallampati Class: III TM Dist: >3cm Neck ROM: Full Denture: Upper and Lower Assessment and Plan Assessment Anesthesia Assessment: Anesthesia Plan Discussed Final Anesthetic Review Family History of Problems with Anesthesia: No History of Problems with Anesthesia: No NPO: Yes ASA Class: III Final Preanesthetic Review: No Changes in Pt Med Stat, Meds/Allgs Chart Reviewed, Consent Obtained/Reviewed and Anes Risks/Benef Reviewed Patient Risk: Intermediate Procedure Risk: Low Anesthetic Plan Anesthetic Plan: TIVA Disposition: Standard PACU
--- NOTE | 2024-10-12 07:30 | MHC.SHP ---
Pre-Procedural Eval Section A - 24 Hr Update-Section A only Date of Service: 10/12/24 The patient is an INPATIENT: No The patient has been examined within 24 hours of the surgical procedure. The History & Physical has been completed within 30 days and I have reviewed it.: No Section B - Complete if H&P > 30 days Chief Complaint: Surveillance for colon polyps Relevant Family History (Specify if Yes): No Relevant Social History: None Present Medications: see Short Stay Collaborative assessment Medical History: Significant History (Hypovitaminosis D History of prostate cancer Diabetes Pure hypercholesterolemia Essential hypertension) History of Previous Operations: Relevant previous surgery/procedure and date(s) (History of colonoscopy) Allergies: Allergies Allergy/AdvReac Type Severity Reaction Status Date / Time No Known Allergies Allergy Verified 08/03/24 15:06 [No Known Allergies*] Review of Systems Sugical H&P ROS: Negative: Constitution, Cardiovascular and Respiratory Exam Surgical H&P Exam: Normal: Heart, Normal: Lungs, Normal: Extremities and Normal: Abdomen Plan Diagnosis/Plan: Unchanged I have reviewed the history and physical and performed a pertinent physical examination on my patient. No changes have occurred unless specified. Time Spent With Patient Time: Total time managing care of this patient today ____ minutes.
[2024-10-12 07:48] VITALS: BMI 35.1
[2024-10-12 07:56] VITALS: BP 141/86; PULSE 92; RESP 18; TEMP 36.1; O2SAT 96; BMI 35.1
[2024-10-12 07:57] LABS: Glucose, Whole Blood 187 mg/dL (60-115)
--- NOTE | 2024-10-12 09:11 | HO.OPN-COLON ---
Colonoscopy Operative Note Operative Note Date of Service: 10/12/24 Narrative: COLONOSCOPY TILL CECUM WITH BIOPSIES, SNARE POLYPECTOMY, SUBMUCOSAL INJECTION AND HEMOCLIP PLACEMENT Pre-op diagnosis: Surveillance for colon polyps. Post-op diagnosis:? Colon polyps, Diverticulosis, radiation proctitis, hemorrhoids Endoscopist:? Henri San MD Anesthesia:?MAC Consent: Indications for the procedure and potential complications of bleeding, perforation, reaction to medications and missed diagnosis were discussed with the patient and informed consent was obtained. Instrument: Olympus PCF H 190 L variable stiffness pediatric colonoscope Monitoring: Vital signs and clinical assessment, intermittent blood pressure monitoring, continuous EKG monitoring, Pulse oximetry and Carbon Dioxide monitoring were done throughout the procedure. Please see anesthesia flowsheet. Colon withdrawl time was 23 minutes. Procedure: The patient was placed in the left lateral decubitis position and pre-procedure medications were administered. After a digital rectal examination of the ano-rectum, the video colonoscope was inserted into the rectum and advanced through the colon to the cecum. The colonoscope was slowly withdrawn in a retrograde panoramic fashion and the colon mucosa was carefully examined including a retroflexed view of the rectum. Findings and interventions are described below. Procedure Difficulty: without difficulty Findings: Terminal Ileum: Not evaluated Cecum: A 15 mm flat polyp - raised with 12 cc of [place]. Polyp was removed with a stiff hot snare and polypectomy site was closed with 1 hemoclip. Partially evaluated due to undigested vegetable matter. Ascending Colon: A 10 -12 mm sessile polyp in the mid AC - removed with a hot snare. Partially evaluated due to undigested vegetable matter. Moderate diverticulosis throughout the entire colon Transverse Colon: A 5-6 mm sessile polyp - removed with a cold biopsy. Moderate diverticulosis throughout the entire colon Descending Colon: Moderate diverticulosis Sigmoid Colon: Two 10 - 12 mm sessile polyps - removed with a hot snare. 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 [place] Bowel Preparation Scale Right colon; 1 Transverse colon: 2 Left colon; 1 (0 = Unprepared colon segment with mucosa not seen due to solid stool that cannot be cleared. 1 = Portion of mucosa of the colon segment seen, but other areas of the colon segment not well seen due to staining, residual stool and/or opaque liquid. 2 = Minor amount of residual staining, small fragments of stool and/or opaque liquid, but mucosa of colon segment seen well. 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 Plan: Pt has a FU appointment on 10/20/24 with Jackie Carroll NP Repeat Colonoscopy in 2 years if polyps are adenomatous and due to history of adenomatous colon polyps and suboptimal prep (Dulcoax 10 mg daily for 5 days prior to next colon appointment) If pt develops rectal bleeding with anemia, he can be scheduled for a flex sig with colon prep for treatment of radiation procitis with APC. Above findings were reviewed with the patient and relevant handouts were given and the discharge area. BIOPSIES SHOWED: A. Colon, cecal polyp: Hyperplastic polyp. B. Colon, ascending, polyp: Tubular adenoma; negative for high-grade dysplasia and carcinoma. C. Colon, transverse, polyp: Polypoid colonic mucosa with no specific change and no adenomatous dysplasia seen. D. Colon, sigmoid, polyps: Hyperplastic polyps, two. Letter sent to the patient with biopsy results. Patient was placed on colonoscopy recall list for repeat colonoscopy in 2 years.
[2024-10-12 09:15] VITALS: BP 94/61; PULSE 78; RESP 18; TEMP 36.1; O2SAT 95
[2024-10-12 09:30] VITALS: BP 109/71; PULSE 83; RESP 16; TEMP 36.1; O2SAT 96
== END 2024-10-12 10:04 | disposition home or self-care (01) ==
PROVIDERS: PCP Internal Medicine; Visit Provider Internal Medicine Gastroenterology
PROC: 0DJD8ZZ Inspection of Lower Intestinal Tract, Via Natural or Artificial Opening Endoscopic (ICD-10-PCS; CPT 45378; principal; 2024-10-12 08:30)
DX: Z12.11 Encounter for screening for malignant neoplasm of colon (principal); Z86.0101 Personal history of adenomatous and serrated colon polyps; D12.2 Benign neoplasm of ascending colon; K63.5 Polyp of colon; K57.30 Diverticulosis of large intestine without perforation or abscess without bleeding; Z85.46 Personal history of malignant neoplasm of prostate; K62.7 Radiation proctitis; K64.8 Other hemorrhoids; I10 Essential (primary) hypertension; E78.00 Pure hypercholesterolemia, unspecified; E55.9 Vitamin D deficiency, unspecified; E11.9 Type 2 diabetes mellitus without complications; K80.20 Calculus of gallbladder without cholecystitis without obstruction; Z79.4 Long term (current) use of insulin; Z99.89 Dependence on other enabling machines and devices
CPT/HCPCS: 45385; 45380; 45381; 82947; 88305; J2003; J2704

== ENCOUNTER → 2024-10-12 07:20 | Outpatient (BNV) | payer OTHER, SELFPAY | PROVIDERS: PCP Internal Medicine; Visit Provider Internal Medicine Gastroenterology | DX: Z12.11 Encounter for screening for malignant neoplasm of colon (principal); Z86.0100 Personal history of colon polyps, unspecified; K63.5 Polyp of colon; D12.2 Benign neoplasm of ascending colon; K57.90 Diverticulosis of intestine, part unspecified, without perforation or abscess without bleeding; K62.7 Radiation proctitis | CPT/HCPCS: 45380; 45381; 45385 ==

== ENCOUNTER 2024-11-02 14:36 | Outpatient (AMB) | payer OTHER, SELFPAY ==
--- NOTE | 2024-11-02 14:40 | A.OFFVIS_ITS ---
Vital Signs 11/02/24 14:44 Height 5 ft 7 in Weight 229 lb 4.492 oz BMI 35.9 BP 122/74 Blood Pressure Location Rt brachial Position Sitting Pulse 78 Pulse Source Pulse Oximeter Intake Visit Reasons: T2DM/CONF Intake Note: Patient presents today for D2MT follow up visit. Last Diabetic Eye exam: 06/2024 Last Podiatry Visit: Patient has upcoming appt. Most Recent HgA1c: 7.2%, 11/02/2024 Random Glucose: 194 mg/dL, Today Area Field Manager Required: Yes Area Field Manager Language: Coagulating Drying Supervisor Services: Area Field Manager Offered & Declined Area Field Manager Name: Son-in-law Accompanied by: Son in law Allergies No Known Allergies [No Known Allergies*] Allergy (Verified 08/03/24 15:06) Medication List - Last Reconciled 11/02/24 by Chiquis Reid PA-C [3 inch riser enlongated toilet seat As directed] atorvastatin 40 mg PO BEDTIME 90 days blood pressure monitor As directed blood sugar diagnostic (FreeStyle Lite Strips) 1 strip miscellaneous TID blood-glucose meter (FreeStyle Lite Meter kit) As directed blood-glucose meter (FreeStyle [place] kit) As directed blood-glucose sensor (FreeStyle Carlie 3 Sensor device) Apply every 14 days As directed to monitor blood glucose cane As directed cholecalciferol (vitamin D3) 25 mcg PO DAILY 90 days dulaglutide (Trulicity) 1.5 mg (0.5 mL) subcut QWEEK 90 days empagliflozin (Jardiance) 25 mg PO QAM 90 days furosemide 20 mg PO Q OTHER DAY 90 days gabapentin 100 mg PO DAILY Grabber As directed insulin glargine (Lantus Solostar U-100 Insulin) 18 units (0.18 mL) subcut QPM 90 days lancets (FreeStyle Lancets) Use 1 lancet three times a day lisinopril 5 mg PO DAILY 90 days metformin 1,000 mg PO BID pen needle, diabetic (BD Kesha 2nd Gen Pen Needle) As directed injects once a day [powerlift recliner As directed] [reflecting vest As directed] trazodone 50 mg PO BEDTIME PRN 30 days Ventolin HFA 90 mcg/actuation (albuterol sulfate) 2 puffs inhalation Q6H PRN 30 days NS walker As directed HPI HPI T2DM/CONF: Details: Patient is a 78 YO M who is seen in consultation for T2DM. He is here today with his son. Mame helps with translation. DM: Initially diagnosed with T2DM in 2003. He has seen a subsea engineer and certified lactation educator. Was initially started on treatment with metformin. Current regimen Trulicity 1.5 mg Qwkly Jardiance 25 mg metformin 1000 mg BID. Lantus 18 units His A1c is 7.2. Does endorse some dietary indiscretions over the holidays.. Dexcom download shows he is using the sensor 54% of the time. Average glucose is 138. Target range is 98% of time with 2% hyperglycemia and no hypoglycemia Denies any hypoglycemia . States that he would correct it with sugar or juice. Family history of T2DM in sister . Has eyes checked yearly, eye exam booked 07/18 , denies retinopathy. Denies neuropathy, , sees podiatry- utd 03/18. Denies nephropathy, on HERLINDA/ARB. Has HLD, on statin. . Denies CAD. CV: Blood pressure today in the office is 122/74. He is currently on lisinopril 5 mg and lasix 20 mg every other day. His cholesterol is controlled atorvastatin 40 mg. [facility] Medical History Controlled type 2 diabetes mellitus with insulin therapy Hypovitaminosis D History of prostate cancer Diabetes Pure hypercholesterolemia Essential hypertension Surgical History History of colonoscopy Family History Father Murder Mother No problems noted. Daughter Healthy adult Brother No problems noted. Sister No problems noted. Son No problems noted. Social History Household Members: None Housing: Apartment Are you a primary home care nurse to a significant other at home: No Do you presently have visiting nurse or other home services: No Alcohol intake: never Patient Tobacco Use Status: Never used Tobacco e-Cigarette/Vaping Use: Never Used Second Hand Smoke Exposure: No service: No Current occupational status: retired Cognitive needs: Yes (CANE) Hearing needs: No Vision needs: Yes Physical Exam Vital Signs: BMI result Body Mass Index 35.9 Const Orientation/consciousness: patient oriented x3 Neck Neck: Yes no lymphadenopathy Thyroid: Thyroid normal Carotids: no bruits Resp Auscultation: clear to auscultation bilaterally Cardio Rate: regular rate Rhythm: regular rhythm Heart sounds: S1 normal heart sound present and S2 normal heart sound present Peripheral pulses: dorsalis pedis present Neuro General: patient oriented x3, gait normal and no focal motor deficits Extrem Other: Monofilament sensation intact bilaterally. Vibratory sensation diminished bilaterally. Skin intact. General: Yes normal to inspection Results AMB Hemoglobin A1c AMB Hemoglobin A1c 7.2 % Last Edit by TWILA Starks on 11/02/24 15:01 Assessment & Plan Assessment & Plan (1) Controlled type 2 diabetes mellitus with insulin therapy: Code(s): E11.9 - Type 2 diabetes mellitus without complications; Z79.4 - FDC (current) use of insulin Category: Medical Plan: Currently very well-controlled. We will continue current regimen. Patient will follow up in 3 months. Recheck labs prior to appointment. Reminded patient to get this done. Son-in-law states that he will take him. (2) Essential hypertension: Code(s): I10 - Essential (primary) hypertension Category: Medical Plan: WNL. Continue current regimen (3) Pure hypercholesterolemia: Code(s): E78.00 - Pure hypercholesterolemia, unspecified Category: Medical Plan: As above. Orders: Orders AMB Hemoglobin A1c Today E11.9 - Type 2 diabetes mellitus without complications, Z79.4 - FDC (current) use of insulin Coding Level of Care Code Est Pt Level 4 (38746) Complex EM visit Add On G2211 Diagnoses Controlled type 2 diabetes mellitus with insulin therapy E11.9; Z79.4 Essential hypertension I10 Pure hypercholesterolemia E78.00
[2024-11-02 14:44] VITALS: BP 122/74; PULSE 78; BMI 35.9
[2024-11-02 14:56] LABS: Glucose, Whole Blood 194 mg/dL (60-115)
== END 2024-11-02 15:08 | disposition home or self-care (01) ==
PROVIDERS: PCP Internal Medicine; Visit Provider Physician Assistant
DX: E11.9 Type 2 diabetes mellitus without complications (principal); Z79.4 Long term (current) use of insulin; I10 Essential (primary) hypertension; E78.00 Pure hypercholesterolemia, unspecified

== ENCOUNTER → 2024-11-02 14:36 | Outpatient (BNVA) | payer OTHER, SELFPAY | PROVIDERS: PCP Internal Medicine; Visit Provider Physician Assistant | DX: E11.9 Type 2 diabetes mellitus without complications (principal); E78.00 Pure hypercholesterolemia, unspecified; I10 Essential (primary) hypertension; Z79.4 Long term (current) use of insulin | CPT/HCPCS: 82947; 83036; 99212 ==

== ENCOUNTER 2024-12-11 07:50 | Outpatient (REF) | payer OTHER, SELFPAY ==
[2024-12-11 08:41] LABS: Estimated Average Glucose 143 mg/dL; Hemoglobin A1C 193.4752 umol/L; Hemoglobin A1c % 6.6 % (<6.0); Total Hemoglobin (HGBA1C) 3961.7872 umol/L
[2024-12-11 09:13] LABS: Alanine Aminotransferase 22 U/L (0-40); Albumin Level 4.1 g/dL (3.5-5.0); Alkaline Phosphatase 67 U/L (39-117); Anion Gap 8 (12-20); Aspartate Amino Transferase 25 U/L (5-37); Bilirubin Total 1.4 mg/dL (0.0-1.0); Blood Urea Nitrogen 19 mg/dL (9-16); Calcium 9.4 mg/dL (8.4-10.2); Carbon Dioxide 28 mmol/L (22-29); Chloride 109 mmol/L (96-108); Cholesterol 164 mg/dL (<200); Estimated Glomerular Filt Rate > 60; Glucose Fasting 100 mg/dL (60-99); HDL Cholesterol 50 mg/dL (>40); LDL Cholesterol Calculated 101 mg/dL (<100); Potassium 4.1 mmol/L (3.3-5.1); Sodium 141 mmol/L (135-145); Total Protein 7.8 g/dL (6.5-8.0); Triglycerides 69 mg/dL (<150)
[2024-12-11 09:15] LABS: Creatinine Urine 100.11 mg/dL; Microalbum/Creatinine Ratio Ur 29.9 ug/mg cr (<30)
[2024-12-11 09:32] LABS: Vitamin D 25-OH Total 31.3 ng/mL (>30)
[2024-12-11 09:33] LABS: Prostate Specific Antigen < 0.10 ng/mL (<0.05-4.0)
== END 2024-12-11 07:51 | disposition home or self-care (01) ==
LOC: HO.LAB 07:50
PROVIDERS: Physician Assistant; Urology; PCP Internal Medicine; Visit Provider Internal Medicine
DX: E11.9 Type 2 diabetes mellitus without complications (principal); C61 Malignant neoplasm of prostate; Z79.4 Long term (current) use of insulin; E55.9 Vitamin D deficiency, unspecified; E78.5 Hyperlipidemia, unspecified; Z12.5 Encounter for screening for malignant neoplasm of prostate
CPT/HCPCS: 36415; 80053; 80061; 82043; 82306; 82570; 83036; 84153

== ENCOUNTER 2024-12-16 15:38 | Outpatient (AMB) | payer OTHER, SELFPAY ==
--- NOTE | 2024-12-16 15:41 | MHC.PC.OV ---
Vital Signs 12/16/24 15:42 Height 5 ft 7 in Weight 226 lb BMI 35.4 BP 110/70 Blood Pressure Location Lt brachial Position Sitting Intake Visit Reasons: dm Intake Note: Patient here for a follow up DM Automated Logistics Specialist Required: Yes Automated Logistics Specialist Language: Service Counselor Name: Faith Rodriguez MD Information Interpreted: non-clinical & clinical Accompanied by: son in law Allergies No Known Allergies [No Known Allergies*] Allergy (Verified 12/16/24 16:03) Medication List - Last Reconciled 12/16/24 by Faith Rodriguez MD [3 inch riser enlongated toilet seat As directed] atorvastatin 40 mg PO BEDTIME 90 days blood pressure monitor As directed blood sugar diagnostic (FreeStyle Lite Strips) 1 strip miscellaneous TID blood-glucose meter (FreeStyle Lite Meter kit) As directed blood-glucose meter (FreeStyle [place] kit) As directed blood-glucose sensor (FreeStyle Carlie 3 Sensor device) Apply every 14 days As directed to monitor blood glucose cane As directed cholecalciferol (vitamin D3) 25 mcg PO DAILY 90 days dulaglutide (Trulicity) 1.5 mg (0.5 mL) subcut QWEEK 90 days empagliflozin (Jardiance) 25 mg PO QAM 90 days furosemide 20 mg PO Q OTHER DAY 90 days gabapentin 100 mg PO DAILY Grabber As directed insulin glargine (Lantus Solostar U-100 Insulin) 18 units (0.18 mL) subcut QPM 90 days lancets (FreeStyle Lancets) Use 1 lancet three times a day lisinopril 5 mg PO DAILY 90 days metformin 1,000 mg PO BID pen needle, diabetic (BD Kesha 2nd Gen Pen Needle) As directed injects once a day [powerlift recliner As directed] [reflecting vest As directed] [Scooter- 4 wheeled As directed] trazodone 50 mg PO BEDTIME PRN 30 days Ventolin HFA 90 mcg/actuation (albuterol sulfate) 2 puffs inhalation Q6H PRN 30 days NS walker As directed walker (Ultra-Light Rollator misc) As directed Tobacco use date assessed: 12/16/24 Fall risk assessment: No Falls in past year Last assessed Fall Risk: 12/16/24 Dental Screening Dental Screen Date: 12/16/24 Did you have a dental visit in the last 12 months?: No Did you have a dental problem in the last 6 months where you did not have access to dental care?: No Was dental information given to patient?: Patient has dentist HPI HPI Comments History of Present Illness Details The patient is a 78-year-old male presenting with a follow-up for diabetes and hyperlipidemia management. The patient?s glycated hemoglobin (A1c) was last measured in October, with a result of 7.2%, slightly above the target level of 7.0%. The patient?s fasting blood glucose level is currently reported at 100 mg/dL. The patient is also monitoring his lipid levels, with a noted elevated LDL cholesterol level of 101 mg/dL. He has been on atorvastatin therapy at a dose of 40 mg, which is being considered for adjustment due to the current LDL level. No current symptoms such as chest pain, shortness of breath, or fever are reported. The patient is also managing hypertension, with well-controlled blood pressure levels. Hypertension stable with lisinopril. Insomnia well controlled with trazodone. Walks with a cane for gait stability due to lumbar degenerative disc disease. History of prostate cancer in remission follow by Urology. [facility] Medical History Controlled type 2 diabetes mellitus with insulin therapy Hypovitaminosis D History of prostate cancer Diabetes Pure hypercholesterolemia Essential hypertension Surgical History History of colonoscopy Family History Father Murder Mother No problems noted. Daughter Healthy adult Brother No problems noted. Sister No problems noted. Son No problems noted. Social History Household Members: None Housing: Apartment Are you a primary transitions rn care coordinator to a significant other at home: No Do you presently have visiting nurse or other home services: No Alcohol intake: never Patient Tobacco Use Status: Never used Tobacco e-Cigarette/Vaping Use: Never Used Second Hand Smoke Exposure: No service: No Current occupational status: retired Cognitive needs: Yes (CANE) Hearing needs: No Vision needs: Yes Questionnaire PHQ-9 Over the last 2 weeks, how often have you been bothered by any of the following problems? 1. Little interest or pleasure in doing things: not at all 2. Feeling down, depressed, or hopeless: not at all 3. Trouble falling or staying asleep, or sleeping too much: not at all 4. Feeling tired or having little energy: not at all 5. Poor appetite or overeating: not at all 6. Feeling bad about yourself - or that you are a failure or have let yourself or your family down: not at all 7. Trouble concentrating on things, such as reading the newspaper or watching television: not at all 8. Moving or speaking so slowly that other people could have noticed. Or the opposite - being so fidgety or restless that you have been moving around a lot more than usual: not at all 9. Thoughts that you would be better off or of hurting yourself in some way: not at all Total score: 0 Depression Screening Interpretation: Negative Depression Screening Done: Yes 45625 - PHQ-9 Billing: Yes Source: Developed by Drs. Sahil Welch, Maine Turpin, Jemal Rees and colleagues, with an educational lorena from [employer]. Thrive Questionnaire Date Thrive assessed: 12/16/24 I am a: Patient What is your living situation today?: I have a steady place to live Within the past 12 months, did the food you bought not last and you didn't have the money to get more?: Never true Within the past 12 months, did you worry whether your food would run out before you got money to buy more?: Never true Do you have trouble paying for medicines?: No Do you have trouble getting transportation to medical appointments?: No Do you have trouble paying your heating and electricity bill?: No Do you have trouble taking care of your child, family member or friend?: I choose not to answer this question Do you have trouble with day-to-day activities such as bathing, preparing meals, shopping, managing finances, etc.?: I choose not to answer this question Are you currently unemployed and looking for a job?: I choose not to answer this question Are you interested in more education?: I choose not to answer this question Please select the resources that you would like help with: None Currently or been in a relationship where the following occur: No concerns reported THRIVE Score: 0 AUDIT C Alcohol Use Questionnaire (AUDIT-C) 1. How often do you have a drink containing alcohol?: Never Total Score: 0 Score Reviewed/Action Taken: No DOMONIQUE-7 AMB Questionnaire DOMONIQUE-7 Date DOMONIQUE - 7 assessed: 12/16/24 Feeling nervous, anxious, or on edge: 0 = Not at all Not being able to stop or control worryin = Not at all Worrying too much about different things: 0 = Not at all Trouble relaxin = Not at all Being so restless that it is hard to sit still: 0 = Not at all Becoming easily annoyed or irritable: 0 = Not at all Feeling afraid as if something awful might happen: 0 = Not at all Total DOMONIQUE-7 score (0-4 normal; 5-9 mild; 10-14 moderate; 15-21 severe): 0 Source: Developed by Drs. Sahil Welch, Maine Turpin, Jemal Rees and colleagues, with an educational lorena from [employer]. DOMONIQUE-7 Assessment Billing DOMONIQUE-7 Assessment Tool: DOMONIQUE-7 Assessment 29454 Review of Systems Const All systems reviewed & are unremarkable except as noted in HPI and below Card Denies chest pain at rest, Denies chest pain with activity, Denies edema, Denies irregular heart rhythm, Denies claudication, Denies dyspnea, Denies dyspnea on exertion, Denies orthopnea, Denies paroxysmal nocturnal dyspnea and Denies slow heart rate Resp Denies cough, Denies dyspnea and Denies dyspnea on exertion GI Denies abdominal pain, Denies change in bowel habits, Denies excessive flatus, Denies nausea and Denies vomiting Neuro Denies lack of coordination Physical exam (Primary Care) Vital Signs: Last Vital Signs BP 110/70 12/16/24 15:42 BMI result Body Mass Index 35.4 BMI Assessment/Plan discussion: High BMI High, discussed plan: lifestyle, weight reduction, dietary and physical activity Tobacco/Smoking Status: Tobacco use Status Tobacco use date assessed 12/16/24 12/16/24 15:48 Patient Tobacco Use Status Never used Tobacco 12/16/24 15:48 e-Cigarette/Vaping Use Never Used 12/16/24 15:48 PHQ-9: PHQ-9 Score PHQ-9: Total score 0 12/16/24 17:47 Depression Screening Interpretation: Negative Thrive Assessment: Date of Thrive Assessment Date Thrive assessed 12/16/24 12/16/24 15:48 Currently or been in a relationship where the following occur: No concerns reported Resp Effort & Inspection: normal respiratory effort Auscultation: clear to auscultation bilaterally Cardio Jugular venous distension: no JVD Rate: regular rate Rhythm: regular rhythm Heart sounds: S1 normal heart sound present and S2 normal heart sound present Extrem General: Yes full ROM Office Procedures Flu Questionnaire Does the patient have a severe egg allergy?: No Immunizations Fluarix Triv [id number] (PF) 45 mcg (15 mcg x 3)/0.5 mL IM syringe Performing Provider: Faith Rodriguez MD [place] [facility] Documented (not given) by: TWILA Murrell on 12/16/24 16:13 Reason Not Given: Patient Refused Coding Level of Care Code Est Pt Level 4 (89754) Complex EM visit Add On G2211 Diagnoses Controlled type 2 diabetes mellitus with insulin therapy E11.9; Z79.4 Insomnia, unspecified type G47.00 Insomnia type: unspecified Prostate cancer C61 Pure hypercholesterolemia E78.00 Essential hypertension I10 Additional Codes DOMONIQUE-7 Assessment Billing - DOMONIQUE-7 Assessment Tool: DOMONIQUE-7 Assessment 59733 ([id number]) PHQ-9 - 57967 - PHQ-9 Billing: Yes ([id number]) Time Spent (min) 22 Assessment & Plan Assessment & Plan (1) Controlled type 2 diabetes mellitus with insulin therapy: Code(s): E11.9 - Type 2 diabetes mellitus without complications; Z79.4 - FDC (current) use of insulin Category: Medical (2) Insomnia: Code(s): G47.00 - Insomnia, unspecified Category: Medical Qualifiers: Insomnia type: unspecified Qualified Code(s): G47.00 - Insomnia, unspecified (3) Prostate cancer: Comment: Unfavorable intermediate external beam radiation with hormones August 2020 Code(s): C61 - Malignant neoplasm of prostate Category: Medical (4) Pure hypercholesterolemia: Code(s): E78.00 - Pure hypercholesterolemia, unspecified Category: Medical (5) Essential hypertension: Code(s): I10 - Essential (primary) hypertension Category: Medical Plan - Adjust atorvastatin dosage to 80 mg to target LDL cholesterol reduction. - Plan to repeat laboratory tests, including lipid panel and A1c, in four months to assess the effect of medication adjustment. - Continue monitoring blood glucose levels regularly while maintaining the current diabetes management plan. - Evaluate dietary modifications to assist in controlling cholesterol and blood sugar levels. Patient was informed and verbally consented to the use of an ambient scribe for clinic note documentation during this visit. I discussed with the patient the current state of his diabetes management and hyperlipidemia. The A1c level remains slightly above target, and we are aiming for improved glucose control. The LDL cholesterol level is elevated, and adjusting the atorvastatin dose to 80 mg is recommended to lower the risk of cardiovascular events. I emphasized the importance of dietary management and avoiding foods high in cholesterol and saturated fats in controlling his lipid levels. Follow-ups were planned to reassess the effectiveness of these interventions after four months. There were no reported symptoms necessitating immediate intervention and no needs for consent for any procedures at present. Orders: Orders Lipid Panel 4 Months E78.5 - Hyperlipidemia, unspecified Microalbumin, Random (w Creat) 4 Months R80.9 - Proteinuria, unspecified Vitamin D 25-OH Total 4 Months E55.9 - Vitamin D deficiency, unspecified Comprehensive [place]. Panel Fast 4 Months E11.9 - Type 2 diabetes mellitus without complications, Z79.4 - regional intermodal truck driver (current) use of insulin Influenza [id number] Immunization Today Z23 - Encounter for immunization Medications: New atorvastatin 80 mg PO BEDTIME 90 tabs 1RF 90 days Discontinued atorvastatin Discontinued Reason: Patient Completed Course 40 mg PO BEDTIME 90 days 90 tabs 0RF Patient Instructions: - Commence atorvastatin 80 mg as discussed to manage cholesterol levels. - Monitor blood glucose regularly and maintain a record for review in follow-ups. - Avoid dietary intake of high-fat foods, specifically fried snacks and foods rich in mayonnaise. - Return for lab tests in four months to evaluate the effectiveness of the current medication adjustments. - Report any new symptoms such as chest pain, difficulty breathing, or unusual fatigue immediately.
[2024-12-16 15:42] VITALS: BP 110/70; BMI 35.4
== END 2024-12-16 16:12 | disposition home or self-care (01) ==
PROVIDERS: PCP Internal Medicine; Visit Provider Internal Medicine
DX: E11.9 Type 2 diabetes mellitus without complications (principal); Z79.4 Long term (current) use of insulin; G47.00 Insomnia, unspecified; C61 Malignant neoplasm of prostate; E78.00 Pure hypercholesterolemia, unspecified; I10 Essential (primary) hypertension; Z23 Encounter for immunization

== ENCOUNTER → 2024-12-16 15:38 | Outpatient (BNVA) | payer OTHER, SELFPAY | PROVIDERS: PCP Internal Medicine; Visit Provider Internal Medicine | DX: E11.9 Type 2 diabetes mellitus without complications (principal); G47.00 Insomnia, unspecified; C61 Malignant neoplasm of prostate; E78.00 Pure hypercholesterolemia, unspecified; I10 Essential (primary) hypertension; Z79.4 Long term (current) use of insulin | CPT/HCPCS: 90471; 96127; 99212 ==

== ENCOUNTER 2025-02-01 14:07 | Outpatient (AMB) | payer OTHER, SELFPAY ==
[2025-02-01 14:09] VITALS: BP 112/72; PULSE 101; O2SAT 95; BMI 35.2
--- NOTE | 2025-02-01 14:09 | A.OFFVIS_ITS ---
Vital Signs 02/01/25 14:09 Height 5 ft 7 in Weight 224 lb 13.944 oz BMI 35.2 BP 112/72 Blood Pressure Location Rt brachial Position Sitting Pulse 101 H Pulse Source Pulse Oximeter Pulse Oximetry (%) 95 Oxygen Delivery Method Room Air Intake Visit Reasons: dm Intake Note: Patient presents today for a follow-up on Type 2 Diabetes Mellitus: Last Diabetic eye exam was on: DUE Last Podiatry exam was on: Patient does not see a Insurance Advisor Most recent HbA1c: 6.6%, 12/11/2024 Random Glucose- 133 mg/dL, Today Wharf Tally Clerk Required: Yes Wharf Tally Clerk Language: Merchandise Worker Services: Wharf Tally Clerk Offered & Declined Wharf Tally Clerk Name: Son-in-law Accompanied by: Son in law Allergies No Known Allergies [No Known Allergies*] Allergy (Verified 12/16/24 16:03) Medication List - Last Reconciled 02/01/25 by Chiquis Reid PA-C [3 inch riser enlongated toilet seat As directed] atorvastatin 80 mg PO BEDTIME 90 days blood pressure monitor As directed blood sugar diagnostic (FreeStyle Lite Strips) 1 strip miscellaneous TID blood-glucose meter (FreeStyle Lite Meter kit) As directed blood-glucose meter (FreeStyle [place] kit) As directed blood-glucose meter,continuous (FreeStyle Carlie 3 [place]) Use daily As directed to monitor blood glucose blood-glucose sensor (FreeStyle Carlie 3 Plus Sensor device) Use daily As direc lei to monitor glucose cane As directed cholecalciferol (vitamin D3) 25 mcg PO DAILY 90 days dulaglutide (Trulicity) 1.5 mg (0.5 mL) subcut QWEEK 90 days empagliflozin (Jardiance) 25 mg PO QAM 90 days furosemide 20 mg PO Q OTHER DAY 90 days gabapentin 100 mg PO DAILY Grabber As directed insulin glargine (Lantus Solostar U-100 Insulin) 18 units (0.18 mL) subcut QPM 90 days lancets (FreeStyle Lancets) Use 1 lancet three times a day lisinopril 5 mg PO DAILY 90 days metformin 1,000 mg PO BID pen needle, diabetic (BD Kesha 2nd Gen Pen Needle) As directed injects once a day [powerlift recliner As directed] [reflecting vest As directed] [Scooter- 4 wheeled As directed] trazodone 50 mg PO BEDTIME PRN 30 days Ventolin HFA 90 mcg/actuation (albuterol sulfate) 2 puffs inhalation Q6H PRN 30 days NS walker As directed walker (Ultra-Light Rollator misc) As directed HPI HPI dm: Details: Patient is a 79 YO M who is seen in consultation for T2DM. He is here today with his son. Mame helps with translation. DM: Initially diagnosed with T2DM in 2003. He has seen a public address announcer and public health educator. Was initially started on treatment with metformin. Current regimen Trulicity 1.5 mg Qwkly Jardiance 25 mg metformin 1000 mg BID. Lantus 18 units He needs a new sensor and reader as his are broken. He would benefit from continuous monitoring as family states that they are sometimes worried that he could go low and not feel this. He is managed by his son-in-law. His daughter would also like to receive alerts of his blood sugars. Denies any hypoglycemia . States that he would correct it with sugar or juice. Family history of T2DM in sister . Has eyes checked yearly, eye exam booked 07/18 , denies retinopathy. Denies neuropathy, , sees podiatry- utd 03/18. Denies nephropathy, on HERLINDA/ARB. Has HLD, on statin. . Denies CAD. CV: Blood pressure today in the office is 112/72. He is currently on lisinopril 5 mg and lasix 20 mg every other day. His cholesterol is controlled atorvastatin 40 mg. [facility] Medical History Controlled type 2 diabetes mellitus with insulin therapy Hypovitaminosis D History of prostate cancer Diabetes Pure hypercholesterolemia Essential hypertension Surgical History History of colonoscopy Family History Father Murder Mother No problems noted. Daughter Healthy adult Brother No problems noted. Sister No problems noted. Son No problems noted. Social History Household Members: None Housing: Apartment Are you a primary home health care coordinator to a significant other at home: No Do you presently have visiting nurse or other home services: No Alcohol intake: never Patient Tobacco Use Status: Never used Tobacco e-Cigarette/Vaping Use: Never Used Second Hand Smoke Exposure: No service: No Current occupational status: retired Cognitive needs: Yes (CANE) Hearing needs: No Vision needs: Yes Physical Exam Vital Signs: Last Vital Signs Pulse 101 H 02/01/25 14:09 BP 112/72 02/01/25 14:09 Pulse Ox 95 02/01/25 14:09 Oxygen Delivery Method Room Air 02/01/25 14:09 BMI result Body Mass Index 35.2 Const Orientation/consciousness: patient oriented x3 HEENT Ears: hearing grossly normal bilaterally Neck Thyroid: Thyroid normal Lymphatic: no lymphadenopathy noted Resp Auscultation: clear to auscultation bilaterally Cardio Rate: regular rate Rhythm: regular rhythm Heart sounds: S1 normal heart sound present and S2 normal heart sound present Skin General skin exam: no rashes or lesions noted Neuro General: patient oriented x3, gait normal and no focal motor deficits Results Reviewed Results Reviewed: Laboratory Tests 07/30/24 10/12/24 12/11/24 16:12 07:54 08:10 Sodium 141 Potassium 4.1 Chloride 109 H Carbon Dioxide 28 Anion Gap 8 L BUN 19 H Creatinine 0.82 Estimated GFR > 60 POC Glucose 187 H Fasting Glucose 100 H Hgb A1c (Clinic) 6.7 H Hemoglobin A1c % 6.6 H Triglycerides 69 Cholesterol 164 LDL Cholesterol, Calc 101 H HDL Cholesterol 50 Assessment & Plan Assessment & Plan (1) Controlled type 2 diabetes mellitus with insulin therapy: Code(s): E11.9 - Type 2 diabetes mellitus without complications; Z79.4 - skilled nursing (current) use of insulin Category: Medical Plan: Increase Trulicity to 3 mg weekly. Reduce Lantus to 15 units. Continue metform in and Jardiance. [employer] [place] 3+ sensor and reader ordered today. Appeals letter written. PA started. (2) Essential hypertension: Code(s): I10 - Essential (primary) hypertension Category: Medical Plan: WNL. Continue current regimen. (3) Pure hypercholesterolemia: Code(s): E78.00 - Pure hypercholesterolemia, unspecified Category: Medical Plan: As above. 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, R80.9 - Proteinuria, unspecified, Z79.4 - termite control technician (current) use of insulin blood-glucose meter,continuous (FreeStyle Carlie 3 [place]) Use daily As directed to monitor blood glucose 1 ea 0RF E11.65 - Type 2 diabetes mellitus with hyperglycemia, Z79.4 - termite control technician (current) use of insulin Changed From insulin glargine (Lantus Solostar U-100 Insulin) 18 units (0.18 mL) subcut QPM 90 days 16.2 mL 0RF E11.9 - Type 2 diabetes mellitus without complications To insulin glargine (Lantus Solostar U-100 Insulin) 15 units (0.15 mL) subcut QPM 90 days 13.5 mL 0RF E11.9 - Type 2 diabetes mellitus without complications Discontinued blood-glucose sensor (FreeStyle Carlie 3 Sensor device) Discontinued Reason: Doctor's Order Apply every 14 days As directed to monitor blood glucose 2 ea 11RF E11.9 - Type 2 diabetes mellitus without complications, Z79.4 - skilled nursing (current) use of insulin dulaglutide (Trulicity) Discontinued Reason: Doctor's Order 1.5 mg (0.5 mL) subcut QWEEK 90 days 6.5 mL 0RF Coding Level of Care Code Est Pt Level 4 (01138) Complex EM visit Add On G2211 Diagnoses Controlled type 2 diabetes mellitus with insulin therapy E11.9; Z79.4 Essential hypertension I10 Pure hypercholesterolemia E78.00
[2025-02-01 14:23] LABS: Glucose, Whole Blood 133 mg/dL (60-115)
== END 2025-02-01 14:41 | disposition home or self-care (01) ==
PROVIDERS: PCP Internal Medicine; Visit Provider Physician Assistant
DX: E11.9 Type 2 diabetes mellitus without complications (principal); Z79.4 Long term (current) use of insulin; I10 Essential (primary) hypertension; E78.00 Pure hypercholesterolemia, unspecified

== ENCOUNTER → 2025-02-01 14:07 | Outpatient (BNVA) | payer OTHER, SELFPAY | PROVIDERS: PCP Internal Medicine; Visit Provider Physician Assistant | DX: E11.9 Type 2 diabetes mellitus without complications (principal); E78.00 Pure hypercholesterolemia, unspecified; I10 Essential (primary) hypertension; Z79.4 Long term (current) use of insulin | CPT/HCPCS: 82947; 99212 ==

== ENCOUNTER 2025-04-20 15:33 | Outpatient (AMB) | payer OTHER, SELFPAY ==
--- NOTE | 2025-04-20 15:37 | A.OFFPC_ITS ---
Vital Signs 04/20/25 15:38 Height 5 ft 7 in Weight 218 lb BMI 34.1 BP 110/66 Blood Pressure Location Lt brachial Position Sitting Intake Visit Reasons: dm Intake Note: Patient here for a follow up DM Counter Waiter Required: No Accompanied by: Family/Other Allergies No Known Allergies [No Known Allergies*] Allergy (Verified 04/20/25 16:06) Medication List - Last Reconciled 04/20/25 by aFith Rodriguez MD [3 inch riser enlongated toilet seat As directed] atorvastatin 80 mg PO BEDTIME 90 days blood pressure monitor As directed blood sugar diagnostic (FreeStyle Lite Strips) 1 strip miscellaneous TID blood-glucose meter (FreeStyle Lite Meter kit) As directed blood-glucose meter (FreeStyle [place] kit) As directed blood-glucose sensor (FreeStyle Carlie 3 Plus Sensor device) Use daily As directed to monitor glucose blood-glucose,clamper,cont (FreeStyle Carlie 3 [place]) Use daily As directed to monitor blood glucose cane As directed cholecalciferol (vitamin D3) 25 mcg PO DAILY 90 days dulaglutide (Trulicity) 3 mg (0.5 mL) subcut QWEEK empagliflozin (Jardiance) 25 mg PO QAM 90 days furosemide 20 mg PO Q OTHER DAY 90 days gabapentin 100 mg PO DAILY Grabber As directed insulin glargine (Lantus Solostar U-100 Insulin) 15 units (0.15 mL) subcut QPM 90 days lancets (FreeStyle Lancets) Use 1 lancet three times a day lisinopril 5 mg PO DAILY 90 days metformin 1,000 mg PO BID pen needle, diabetic (BD Kesha 2nd Gen Pen Needle) As directed injects once a day [powerlift recliner As directed] [reflecting vest As directed] [Scooter- 4 wheeled As directed] trazodone 50 mg PO BEDTIME PRN 30 days Ventolin HFA 90 mcg/actuation (albuterol sulfate) 2 puffs inhalation Q6H PRN 30 days NS walker As directed walker (Ultra-Light Rollator misc) As directed Tobacco use date assessed: 12/16/24 Fall risk assessment: No Falls in past year Last assessed Fall Risk: 04/20/25 Dental Screening Dental Screen Date: 12/16/24 HPI HPI Comments History of Present Illness Details The patient is a 79-year-old male presenting with a follow-up visit to manage chronic conditions, notably diabetes mellitus, hyperlipidemia, and chronic back pain, along with a stable history of prostate cancer. Management of type 2 diabetes involves Atorvastatin, Trulicity, Jardiance, and Lantus; his A1c is 6.7 indicating good control. The patient's hypertension and lipid levels are monitored, with LDL cholesterol slightly above target now addressed. He has not had allergies to medications previously. The history of prostate cancer is stable and under ongoing urological review, and a colonoscopy indicated some polyps but within managed limits. He uses scooters for chronic low back pain which may impact his stability. [facility] Medical History Controlled type 2 diabetes mellitus with insulin therapy Hypovitaminosis D History of prostate cancer Diabetes Pure hypercholesterolemia Essential hypertension Surgical History History of colonoscopy Family History Father Murder Mother No problems noted. Daughter Healthy adult Brother No problems noted. Sister No problems noted. Son No problems noted. Social History Household Members: None Housing: Apartment Are you a primary infant caregiver to a significant other at home: No Do you presently have visiting nurse or other home services: No Alcohol intake: never Patient Tobacco Use Status: Never used Tobacco e-Cigarette/Vaping Use: Never Used Second Hand Smoke Exposure: No service: No Current occupational status: retired Cognitive needs: Yes (CANE) Hearing needs: No Vision needs: Yes Questionnaire PHQ-9 Over the last 2 weeks, how often have you been bothered by any of the following problems? 1. Little interest or pleasure in doing things: several days 2. Feeling down, depressed, or hopeless: several days 3. Trouble falling or staying asleep, or sleeping too much: not at all 4. Feeling tired or having little energy: several days 5. Poor appetite or overeating: not at all 6. Feeling bad about yourself - or that you are a failure or have let yourself or your family down: not at all 7. Trouble concentrating on things, such as reading the newspaper or watching television: not at all 8. Moving or speaking so slowly that other people could have noticed. Or the opp osite - being so fidgety or restless that you have been moving around a lot more than usual: not at all 9. Thoughts that you would be better off or of hurting yourself in some way: not at all Total score: 3 Depression Screening Interpretation: Positive Depression Screening Follow-up: Existing condition and Follow-up Visit Requested Depression Screening Done: Yes 74878 - PHQ-9 Billing: Yes Source: Developed by Drs. Sahil Welch, Maine Turpin, Jemal Rees and colleagues, with an educational lorena from [employer]. Thrive Questionnaire Date Thrive assessed: 04/13/25 I am a: Patient What is your living situation today?: I have a steady place to live Within the past 12 months, did the food you bought not last and you didn't have the money to get more?: Never true Within the past 12 months, did you worry whether your food would run out before you got money to buy more?: Never true Do you have trouble paying for medicines?: No Do you have trouble getting transportation to medical appointments?: No Do you have trouble paying your heating and electricity bill?: No Do you have trouble taking care of your child, family member or friend?: No Do you have trouble with day-to-day activities such as bathing, preparing meals, shopping, managing finances, etc.?: Yes Are you currently unemployed and looking for a job?: Yes Are you interested in more education?: No Please select the resources that you would like help with: None Currently or been in a relationship where the following occur: I choose not to answer THRIVE Score: 0 AUDIT C Alcohol Use Questionnaire (AUDIT-C) 1. How often do you have a drink containing alcohol?: Never Total Score: 0 Score Reviewed/Action Taken: No DOMONIQUE-7 AMB Questionnaire DOMONIQUE-7 Date DOMONIQUE - 7 assessed: 04/20/25 Feeling nervous, anxious, or on edge: 0 = Not at all Not being able to stop or control worryin = Not at all Worrying too much about different things: 1 = Several days Trouble relaxin = Not at all Being so restless that it is hard to sit still: 0 = Not at all Becoming easily annoyed or irritable: 0 = Not at all Feeling afraid as if something awful might happen: 0 = Not at all Total DOMONIQUE-7 score (0-4 normal; 5-9 mild; 10-14 moderate; 15-21 severe): 1 Source: Developed by Drs. Sahil Welch, Maine Turpin, Jemal Rees and colleagues, with an educational lorena from [employer]. DOMONIQUE-7 Assessment Billing DOMONIQUE-7 Assessment Tool: DOMONIQUE-7 Assessment 95609 Review of Systems Const All systems reviewed & are unremarkable except as noted in HPI and below Card Denies chest pain at rest, Denies chest pain with activity, Denies edema, Denies irregular heart rhythm, Denies claudication, Denies dyspnea, Denies dyspnea on exertion, Denies orthopnea, Denies paroxysmal nocturnal dyspnea and Denies slow heart rate Resp Denies cough, Denies dyspnea and Denies dyspnea on exertion GI Denies abdominal pain, Denies change in bowel habits, Denies excessive flatus, Denies nausea and Denies vomiting Physical exam (Primary Care) Vital Signs: Last Vital Signs BP 110/66 04/20/25 15:38 BMI result Body Mass Index 34.1 BMI Assessment/Plan discussion: High BMI High, discussed plan: lifestyle, weight reduction, dietary and physical activity Tobacco/Smoking Status: Tobacco use Status Tobacco use date assessed 12/16/24 04/20/25 15:47 Patient Tobacco Use Status Never used Tobacco 04/20/25 15:47 e-Cigarette/Vaping Use Never Used 04/20/25 15:47 PHQ-9: PHQ-9 Score PHQ-9: Total score 3 04/20/25 16:37 Depression Screening Interpretation: Positive Depression Screening Follow-up: Existing condition and Follow-up Visit Requested Thrive Assessment: Date of Thrive Assessment Date Thrive assessed 04/13/25 04/20/25 15:47 Currently or been in a relationship where the following occur: I choose not to answer Resp Effort & Inspection: normal respiratory effort Auscultation: clear to auscultation bilaterally Cardio Jugular venous distension: no JVD Rate: regular rate Rhythm: regular rhythm Heart sounds: S1 normal heart sound present and S2 normal heart sound present Extrem General: Yes full ROM Results AMB Hemoglobin A1c AMB Hemoglobin A1c 6.8 % Last Edit by TWILA Murrell on 04/20/25 15:4 8 Results Reviewed Results Reviewed: Laboratory Last Values Hgb A1c (Clinic) 6.8 % (4.0-6.0) H 04/20/25 15:37 Coding Level of Care Code Est Pt Level 4 (53930) Complex EM visit Add On G2211 Diagnoses Controlled type 2 diabetes mellitus with insulin therapy E11.9; Z79.4 Prostate cancer C61 Hypovitaminosis D E55.9 Essential hypertension I10 Pure hypercholesterolemia E78.00 Additional Codes DOMONIQUE-7 Assessment Billing - DOMONIQUE-7 Assessment Tool: DOMONIQUE-7 Assessment 26935 ([id number]) PHQ-9 - 64911 - PHQ-9 Billing: Yes ([id number]) Time Spent (min) 22 Assessment & Plan Assessment & Plan (1) Controlled type 2 diabetes mellitus with insulin therapy: Code(s): E11.9 - Type 2 diabetes mellitus without complications; Z79.4 - skilled nursing (current) use of insulin Category: Medical (2) Prostate cancer: Comment: Unfavorable intermediate external beam radiation with hormones August 2020 Code(s): C61 - Malignant neoplasm of prostate Category: Medical (3) Hypovitaminosis D: Code(s): E55.9 - Vitamin D deficiency, unspecified Category: Medical (4) Essential hypertension: Code(s): I10 - Essential (primary) hypertension Category: Medical (5) Pure hypercholesterolemia: Code(s): E78.00 - Pure hypercholesterolemia, unspecified Category: Medical Plan Ongoing monitoring of cholesterol levels, focusing on reducing LDL levels further with atorvastatin. Chronic low back pain requires the use of assistive devices due to possible instability, and care in this regard will proceed as needed. The stable history of prostate cancer will remain under the oversight of specialist urology care. Re-evaluation and routine labs will be conducted for progression management and maintaining current cholesterol targets by July. His chronic kidney disease does not dictate changes to the current treatment plan at this time.: Patient was informed and verbally consented to the use of an ambient scribe for clinic note documentation during this visit. During our discussion, I reviewed the patient's current management plan for diabetes, focusing on medication adherence and glycemic control, noting his last hemoglobin A1c of 6.7%. The importance of managing hyperlipidemia was discussed in relevance to his LDL cholesterol, and upcoming blood tests in July were planned. The patient has consistent care from urology for prostate cancer, which remains stable. We acknowledged the use of mobility aids as necessary for chronic low back pain. I emphasized re-evaluating blood cholesterol targets soon and maintaining overall stability in chronic condition management. Plans for follow-up visits and tests were discussed thoroughly. Orders: Orders Lipid Panel 4 Months E78.5 - Hyperlipidemia, unspecified Vitamin D 25-OH Total 4 Months E55.9 - Vitamin D deficiency, unspecified Comprehensive Met. Panel 4 Months E11.9 - Type 2 diabetes mellitus without complications, Z79.4 - termite exterminator helper (current) use of insulin AMB Hemoglobin A1c Today E11.9 - Type 2 diabetes mellitus without complications, Z79.4 - termite exterminator helper (current) use of insulin Microalbumin, Random (w Creat) 4 Months R80.9 - Proteinuria, unspecified Patient Instructions: - Continue taking all prescribed medications as directed: Lantus, Jardiance, Trulicity, atorvastatin, furosemide, and gabapentin. - Use the scooter as needed for stability. - Plan to have repeat blood tests in July to reassess cholesterol levels. - Follow up with your urologist for ongoing prostate cancer monitoring. - Maintain a stable lifestyle with no tobacco or alcohol use. - Report any changes in symptoms to me promptly.
[2025-04-20 15:38] VITALS: BP 110/66; BMI 34.1
== END 2025-04-20 16:18 | disposition home or self-care (01) ==
LOC: HO.HMCH 15:34
PROVIDERS: PCP Internal Medicine; Visit Provider Internal Medicine
DX: E11.9 Type 2 diabetes mellitus without complications (principal); Z79.4 Long term (current) use of insulin; C61 Malignant neoplasm of prostate; E55.9 Vitamin D deficiency, unspecified; I10 Essential (primary) hypertension; E78.00 Pure hypercholesterolemia, unspecified

== ENCOUNTER → 2025-04-20 15:33 | Outpatient (BNVA) | payer OTHER, SELFPAY | PROVIDERS: PCP Internal Medicine; Visit Provider Internal Medicine | DX: E11.9 Type 2 diabetes mellitus without complications (principal); E78.5 Hyperlipidemia, unspecified; G89.29 Other chronic pain; C61 Malignant neoplasm of prostate; M54.50 Low back pain, unspecified; E55.9 Vitamin D deficiency, unspecified; I10 Essential (primary) hypertension; E78.00 Pure hypercholesterolemia, unspecified; R80.9 Proteinuria, unspecified; Z79.4 Long term (current) use of insulin | CPT/HCPCS: 83036; 96127; 99212 ==

== ENCOUNTER 2025-05-03 14:15 | Outpatient (AMB) | payer OTHER, SELFPAY ==
[2025-05-03 14:18] VITALS: BP 104/58; PULSE 91; O2SAT 95; BMI 35.9
--- NOTE | 2025-05-03 14:18 | MHC.OFFVIS ---
Vital Signs 05/03/25 14:18 Height 5 ft 7 in Weight 229 lb 4.492 oz BMI 35.9 BP 104/58 L Blood Pressure Location Lt brachial Position Sitting Pulse 91 Pulse Source Pulse Oximeter Pulse Oximetry (%) 95 Oxygen Delivery Method Room Air Intake Visit Reasons: DM Intake Note: Patient present today to follow up on Type 2 Diabetes Mellitus. Patient receives Freestyle Carlie 2 supplies through: [employer], requesting upgrade to Carlie 3 Plus. Last Diabetic Eye exam: June 30, 2024 Has yearly appointment, Next appt is on 2024 Last Podiatry Visit: Does not see a Baggage Inspector Random Glucose: 139 mg/dl HgA1C: 6.8% 04/20/2025 Air Pollution Compliance Inspector Required: Yes Air Pollution Compliance Inspector Language: Clinical Partner Services: Air Pollution Compliance Inspector Offered & Declined Accompanied by: Son Allergies No Known Allergies [No Known Allergies*] Allergy (Verified 05/03/25 14:24) Medication List - Last Reconciled 05/03/25 by Sahil Kc MD [3 inch riser enlongated toilet seat As directed] atorvastatin 80 mg PO BEDTIME 90 days blood pressure monitor As directed blood sugar diagnostic (FreeStyle Lite Strips) 1 strip miscellaneous TID blood-glucose meter (FreeStyle Lite Meter kit) As directed blood-glucose meter (FreeStyle [place] kit) As directed blood-glucose sensor (FreeStyle Carlie 3 Plus Sensor device) Use daily As directed to monitor glucose blood-glucose,hall worker,cont (FreeStyle Carlie 3 [place]) Use daily As directed to monitor blood glucose cane As directed cholecalciferol (vitamin D3) 25 mcg PO DAILY 90 days dulaglutide (Trulicity) 3 mg (0.5 mL) subcut QWEEK empagliflozin (Jardiance) 25 mg PO QAM 90 days furosemide 20 mg PO Q OTHER DAY 90 days gabapentin 100 mg PO DAILY Grabber As directed insulin glargine (Lantus Solostar U-100 Insulin) 15 units (0.15 mL) subcut QPM 90 days lancets (FreeStyle Lancets) Use 1 lancet three times a day lisinopril 5 mg PO DAILY 90 days metformin 1,000 mg PO BID pen needle, diabetic (BD Kesha 2nd Gen Pen Needle) As directed injects once a day [powerlift recliner As directed] [reflecting vest As directed] [Scooter- 4 wheeled As directed] trazodone 50 mg PO BEDTIME PRN 30 days Ventolin HFA 90 mcg/actuation (albuterol sulfate) 2 puffs inhalation Q6H PRN 30 days NS walker As directed walker (Ultra-Light Rollator misc) As directed HPI Comments Details: 79 YO M who is seen in consultation for T2DM at the request of PCP. Initially diagnosed with T2DM in for 20 yrs . Was initially started on treatment with metformin. Current regimen Trulicity 3 mg Qwkly Jardiance 25 mg metformin 1000 mg BID. Lantus 15 units Carlie download shows he is using the sensor 46% of the time. Average glucose is 135 with variability 15.1%. 98% range with 2% hyperglycemia and no hypoglycemia Denies any hypoglycemia Family history of T2DM in sister . Has eyes checked yearly, last eye exam 06/2024 next appt 08/2025 , denies retinopathy. Denies neuropathy, , sees podiatry. Denies nephropathy, on HERLINDA/ARB. Has HLD, on statin. . Denies CAD. saw diabetes education. [facility] Medical History Controlled type 2 diabetes mellitus with insulin therapy Hypovitaminosis D History of prostate cancer Diabetes Pure hypercholesterolemia Essential hypertension Surgical History History of colonoscopy Family History Father Murder Mother No problems noted. Daughter Healthy adult Brother No problems noted. Sister No problems noted. Son No problems noted. Social History Household Members: None Housing: Apartment Are you a primary residential care officer to a significant other at home: No Do you presently have visiting nurse or other home services: No Alcohol intake: never Patient Tobacco Use Status: Never used Tobacco e-Cigarette/Vaping Use: Never Used Second Hand Smoke Exposure: No service: No Current occupational status: retired Cognitive needs: Yes (CANE) Hearing needs: No Vision needs: Yes Physical Exam Absence of Cushingoid features. Absence of acromegalic features. Neck exam reveals nl size thyroid about 15 gms. No thyroid nodules palpable. No carotid bruits present. Lungs CTA. Heart S1 S2, Reg R/R. No M/R/ G. Skin exam reveals absence of vitiligo or acanthosis nigricans. Abdominal exam reveals Soft NT/ND with NA BS. No organomegaly present. Neck Other: . Extrem Other: Visual exam of foot performed. No ulcerations or open lesions. No onchomycosis, no callouses.Pulses 2 + distally Sensation decreasedto monofilament exam. Vibratory sensation sensed is intact with 128 Hz tuning fork Assessment & Plan Assessment & Plan (1) DMII (diabetes mellitus, type 2): Code(s): E11.9 - Type 2 diabetes mellitus without complications Category: Medical Qualifiers: Diabetes mellitus senior living insulin use: without senior living use Diabetes mellitus complication status: with hyperglycemia Qualified Code(s): E11.65 - Type 2 diabetes mellitus with hyperglycemia Plan: This is a 77-year-old male with a history of type 2 diabetes being treated with metformin, Jardiance and Trulicity and basal insulin with excellent glycemic control and no known microvascula edwards macrovascular complications Plan is to continue the current regimen.. He can follow up with primary care diabetes team in 4 months Coding Level of Care Code Est Pt Level 4 (06266) Complex EM visit Add On G2211 Diagnoses Type 2 diabetes mellitus with hyperglycemia, without long-term current use of insulin E11.65 Diabetes mellitus senior living insulin use: without rodent exterminator use Diabetes mellitus complication status: with hyperglycemia
[2025-05-03 14:37] LABS: Glucose, Whole Blood 139 mg/dL (60-115)
== END 2025-05-03 14:43 | disposition home or self-care (01) ==
LOC: HO.ENCR 14:16
PROVIDERS: PCP Internal Medicine; Visit Provider Internal Medicine Endocrinology, Diabetes & Metabolism
DX: E11.65 Type 2 diabetes mellitus with hyperglycemia (principal)
CPT/HCPCS: 99214; G2211

== ENCOUNTER → 2025-05-03 14:15 | Outpatient (BNVA) | payer OTHER, SELFPAY | PROVIDERS: PCP Internal Medicine; Visit Provider Internal Medicine Endocrinology, Diabetes & Metabolism | DX: E11.65 Type 2 diabetes mellitus with hyperglycemia (principal); Z79.84 Long term (current) use of oral hypoglycemic drugs; Z79.4 Long term (current) use of insulin | CPT/HCPCS: 82947; 99212 ==

== ENCOUNTER 2025-08-17 15:34 | Outpatient (AMB) | payer OTHER, SELFPAY ==
[2025-08-17 15:47] VITALS: BP 110/70; PULSE 99; RESP 18; TEMP 36.3; O2SAT 96; BMI 35.9
--- NOTE | 2025-08-17 15:47 | MHC.PC.OV ---
Vital Signs 08/17/25 15:47 Height 5 ft 7 in Weight 229 lb BMI 35.9 BP 110/70 Blood Pressure Location Lt brachial Position Sitting Respiration 18 Pulse 99 Pulse Source Pulse Oximeter Temp 97.3 F Temp Source Temporal Artery Scan Pulse Oximetry (%) 96 Oxygen Delivery Method Room Air Intake Visit Reasons: Annual Exam Dental Mold Maker Required: No Accompanied by: Self / Same As Patient Allergies No Known Allergies (No Known Allergies*) Allergy (Verified 08/17/25 16:22) Medication List - Last Reconciled 08/17/25 by Faith Rodriguez MD [3 inch riser enlongated toilet seat As directed] atorvastatin 80 mg PO BEDTIME 90 days blood pressure monitor As directed blood sugar diagnostic (FreeStyle Lite Strips) 1 strip miscellaneous TID blood-glucose meter (FreeStyle Lite Meter kit) As directed blood-glucose meter (FreeStyle [place] kit) As directed blood-glucose sensor (FreeStyle Carlie 3 Plus Sensor device) Use daily As directed to monitor glucose blood-glucose,air technician,cont (FreeStyle Carlie 3 [place]) Use daily As directed to monitor blood glucose cane As directed cholecalciferol (vitamin D3) 25 mcg PO DAILY 90 days dulaglutide (Trulicity) 3 mg (0.5 mL) subcut QWEEK empagliflozin (Jardiance) 25 mg PO QAM 90 days furosemide 20 mg PO Q OTHER DAY 90 days gabapentin 100 mg PO DAILY Grabber As directed insulin degludec (Tresiba FlexTouch U-100 insulin) 15 units (0.15 mL) subcut BEDTIME lancets (FreeStyle Lancets) Use 1 lancet three times a day lisinopril 5 mg PO DAILY 90 days metformin 1,000 mg PO BID pen needle, diabetic (BD Kesha 2nd Gen Pen Needle) As directed injects once a day [powerlift recliner As directed] [reflecting vest As directed] [Scooter- 4 wheeled As directed] trazodone 50 mg PO BEDTIME PRN 30 days Ventolin HFA 90 mcg/actuation (albuterol sulfate) 2 puffs inhalation Q6H PRN 30 days NS walker As directed walker (Ultra-Light Rollator misc) As directed Tobacco use date assessed: 08/17/25 Fall risk assessment: No Falls in past year Last assessed Fall Risk: 08/17/25 Dental Screening Dental Screen Date: 08/17/25 Did you have a dental visit in the last 12 months?: Yes Did you have a dental problem in the last 6 months where you did not have access to dental care?: No Was dental information given to patient?: Patient has dentist HPI HPI Comments History of Present Illness Details The patient is a 79-year-old male presenting with diabetes management and preventative care. The patient has a history of diabetes mellitus, for which he is currently taking medications including Jardiance, furosemide, gabapentin, insulin, lisinopril, and metformin. He does not smoke or consume alcohol. The patient underwent a colonoscopy, which is the only surgical procedure he has had. [facility] Medical History Controlled type 2 diabetes mellitus with insulin therapy Hypovitaminosis D History of prostate cancer Diabetes Pure hypercholesterolemia Essential hypertension Surgical History History of colonoscopy Family History Father Murder Mother No problems noted. Daughter Healthy adult Brother No problems noted. Sister No problems noted. Son No problems noted. Social History Household Members: None Housing: Apartment Are you a primary career services director to a significant other at home: No Do you presently have visiting nurse or other home services: No Alcohol intake: never Patient Tobacco Use Status: Never used Tobacco e-Cigarette/Vaping Use: Never Used Second Hand Smoke Exposure: No service: No Current occupational status: retired Cognitive needs: Yes (CANE) Hearing needs: No Vision needs: Yes Questionnaire Thrive Questionnaire Date Thrive assessed: 04/13/25 I am a: Patient What is your living situation today?: I have a steady place to live Within the past 12 months, did the food you bought not last and you didn't have the money to get more?: Never true Within the past 12 months, did you worry whether your food would run out before you got money to buy more?: Never true Do you have trouble paying for medicines?: No Do you have trouble getting transportation to medical appointments?: No Do you have trouble paying your heating and electricity bill?: No Do you have trouble taking care of your child, family member or friend?: No Do you have trouble with day-to-day activities such as bathing, preparing meals, shopping, managing finances, etc.?: Yes Are you currently unemployed and looking for a job?: Yes Are you interested in more education?: No Please select the resources that you would like help with: None Currently or been in a relationship where the following occur: I choose not to answer THRIVE Score: 0 AUDIT C Alcohol Use Questionnaire (AUDIT-C) 2. How many drinks containing alcohol do you have on a typical day when you are drinking?: 1 or 2 Total Score: 0 DOMONIQUE-7 AMB Questionnaire DOMONIQUE-7 Date DOMONIQUE - 7 assessed: 04/20/25 Source: Developed by Drs. Sahil Welch, Maine Turpin, Jemal Rees and colleagues, with an educational lorena from [employer]. Review of Systems Const All systems reviewed & are unremarkable except as noted in HPI and below Card Denies chest pain at rest, Denies chest pain with activity, Denies edema, Denies irregular heart rhythm, Denies claudication, Denies dyspnea, Denies dyspnea on exertion, Denies orthopnea, Denies paroxysmal nocturnal dyspnea and Denies slow heart rate Resp Denies cough, Denies dyspnea and Denies dyspnea on exertion GI Denies abdominal pain, Denies change in bowel habits, Denies excessive flatus, Denies nausea and Denies vomiting Denies urinary hesitancy, Denies urinary incontinence and Denies urinary urgency Musc Denies atrophy, Denies deformity and Denies limited range of motion Physical exam (Primary Care) Vital Signs: Last Vital Signs Temp 97.3 F 08/17/25 15:47 Pulse 99 08/17/25 15:47 Resp 18 08/17/25 15:47 BP 110/70 08/17/25 15:47 Pulse Ox 96 08/17/25 15:47 Oxygen Delivery Method Room Air 08/17/25 15:47 BMI result Body Mass Index 35.9 Tobacco/Smoking Status: Tobacco use Status Tobacco use date assessed 08/17/25 08/17/25 15:53 Patient Tobacco Use Status Never used Tobacco 08/17/25 15:53 e-Cigarette/Vaping Use Never Used 08/17/25 15:53 Thrive Assessment: Date of Thrive Assessment Date Thrive assessed 04/13/25 08/17/25 15:53 Currently or been in a relationship where the following occur: I choose not to answer [facility] Head: Yes normal to inspection, Yes normocephalic and Yes atraumatic Ears: external ears normal Eyes General: appearance normal, both eyes and all related structures Eyelids: Yes eyelids normal Conjunctivae: conjunctivae normal Neck Neck: Yes normal visual inspection and Yes supple Resp Effort & Inspection: normal respiratory effort Auscultation: clear to auscultation bilaterally Cardio Jugular venous distension: no JVD Rate: regular rate Rhythm: regular rhythm Heart sounds: S1 normal heart sound present and S2 normal heart sound present GI Inspection: Yes normal to inspection Palpation (GI): Soft to palpation and nontender Auscultation: normal bowel sounds Skin General skin exam: no rashes or lesions noted Neuro General: no focal motor deficits Extrem General: Yes full ROM Psych Appearance: grossly normal Coding Level of Care Code Est Pt Prev Care >65y(57129) Diagnoses Physical exam Z00.00 Type 2 diabetes mellitus with hyperglycemia, without long-term current use of insulin E11.65 Diabetes mellitus alf insulin use: without dedicated intermodal truck driver use Diabetes mellitus complication status: with hyperglycemia Time Spent (min) 30 Assessment & Plan Assessment & Plan (1) Physical exam: Code(s): Z00.00 - Encounter for general adult medical examination without abnormal findings Category: Medical (2) DMII (diabetes mellitus, type 2): Code(s): E11.9 - Type 2 diabetes mellitus without complications Category: Medical Qualifiers: Diabetes mellitus alf insulin use: without dedicated intermodal truck driver use Diabetes mellitus complication status: with hyperglycemia Qualified Code(s): E11.65 - Type 2 diabetes mellitus with hyperglycemia Plan Plan Patient was informed and verbally consented to the use of an ambient scribe for clinic note documentation during this visit. 1. Encounter for general adult medical examination without abnormal findings Z00.00 The patient has undergone a colonoscopy as part of his preventative care measures. 2. Type 2 diabetes mellitus without complications E11.9 HCC 19 The patient is currently on a regimen of Jardiance, furosemide, gabapentin, insulin, lisinopril, and metformin for diabetes management. Orders: Referrals Podiatry Referral E11.65 - Type 2 diabetes mellitus with hyperglycemia
--- OUTSIDE RECORDS SUMMARY | 2025-08-17 18:20 | XMS_ITS ---
Author Organization [facility] Care Team Providers Care Atm Servicer Name Role Phone Laure Keller Ann M Unavailable Unavailable Jenae Araujo Unavailable Paola Jones Unavailable Unavailable Allergies and adverse reactions No Known Allergies Care Team Name Role Address Phone Organization Dates Wendy Villanueva PCP [address] [id number], [place], [address], [facility] (Office): : [facility] 05/24/2024 - 06/12/2024 [place], [address], [facility] (Office): : [facility] 05/24/2024 - 06/12/2024 Jenae [place], [facility] 05/24/2024 - 06/12/2024 Paola Jones [place], [facility] 05/24/2024 - 06/12/2024 Medications Section Medication Name Status Code CodeSystem Dose Route Frequency Admin Type Sig Text Start Date End Date Indication Atorvastati n Calcium Oral Tablet 40 MG active 65650 1 RXNORM 1 table t Oral one time a day Routin e Give 1 table t by mouth one time a day for hyper lipem ia 2023 - hyperlipemi a metFORMIN HCl Oral Tablet 1000 MG active 05335 4 RXNORM 1 table t Oral two times a day Routin e Give 1 table t by mouth two times a day for DM 2023 - DM Gabapentin Oral Capsule 100 MG active 85078 0 RXNORM 1 capsu le Oral one time a day Routin e Give 1 capsu le by mouth one time a day for pain 2023 - pain Finasteride Oral Tablet 5 MG active 57955 6 RXNORM 1 table t Oral one time a day Routin e Give 1 table t by mouth one time a day for bph 2023 - bph Furosemide Oral Tablet 20 MG active 43788 9 RXNORM 1 table t Oral one time a day Routin e Give 1 table t by mouth one time a day for htn 2023 - htn Empaglifloz in Oral Tablet 25 MG active 66960 66 RXNORM 1 table t Oral one time a day Routin e Give 1 table t by mouth one time a day for DM 2023 - DM Trulicity Subcutaneou s Solution Pen-injecto r 1.5 MG/0.5ML active 93167 06 RXNORM 1 appli cator ful Subcut aneous one time a day Routin e Injec t 1 appli cator ful subcu taneo usly one time a day every Shabana for DM 2023 - DM Vitamin D Tablet active 1000 IU Oral one time a day Routin e Give 1000 IU by mouth one time a day for suppl ement 2023 - supplement Fleet Enema Enema 7-19 GM/118ML active 47078 5 RXNORM 1 dose Rectal as needed PRN Inser t 1 dose recta lly as neede d for Const ipati on (Step 3) as neede d if no bowel movem ent for 8 hours after bisac odyl suppo sitor y. 2023 - Constipatio n Milk of Magnesia Suspension 400 MG/5ML active 09659 7 RXNORM 30 ml Oral as needed PRN Give 30 ml by mouth as neede d for Const ipati on (Step 1) As neede d if no bowel movem ent for three days. (Do not use for Hemod ialys is patie nts). 2023 - Constipatio n Acetaminoph en Tablet 325 MG active 16908 2 RXNORM 2 table t Oral as needed PRN Give 2 table t by mouth every 6 hours as neede d for Pain Pain Total dosag e for aceta minop hen and medic ation s that conta in aceta minop hen shoul d not excee d 3 grams / 24 hours . AND Give 2 table t by mouth every 6 hours as neede d for Fever great er than 100.0 F Total dosag e for aceta minop hen and medic ation s that conta in aceta minop hen shoul d not excee d 3 grams / 24 hours . 2023 - Pain 99017 2 RXNORM 2 table t Oral as needed PRN Give 2 table t by mouth every 6 hours as neede d for Pain Pain Total dosag e for aceta minop hen and medic ation s that conta in aceta minop hen shoul d not excee d 3 grams / 24 hours . AND Give 2 table t by mouth every 6 hours as neede d for Fever great er than 100.0 F Total dosag e for aceta minop hen and medic ation s that conta in aceta minop hen shoul d not excee d 3 grams / 24 hours . 2023 - Fever greater than 100.0F Bisacodyl Suppository 10 MG active 9 RXNORM 1 suppo sitor y Rectal as needed PRN Inser t 1 suppo sitor y recta lly as neede d for If no bowel movem ent for 8 hours after Milk of Magne kathy 2023 - If no bowel movement for 8 hours after Milk of Magnesia Lisinopril Oral Tablet 5 MG active 56291 4 RXNORM 1 table t Oral one time a day Routin e Give 1 table t by mouth one time a day for htn 2023 - htn Lantus Subcutaneou s Solution 100 UNIT/ML active 40435 8 RXNORM 10 unit Subcut aneous at bedtime Routin e Injec t 10 unit subcu taneo usly at bedti me for DM 2023 - DM Glutose 45 Gel 40 % active 33384 87 RXNORM 1 dose Oral as needed PRN Give 1 dose by mouth as neede d for hypog lycem ic beau col Give one tube PO/SL if FSBS <50 and able to swall ow PRN. Reche ck FSBS 10 minut es after admin istra tion and call provi ruddy. 2023 - hypoglycemi c protocol GlucaGen HypoKit Solution Reconstitut ed 1 MG active 12781 5 RXNORM 1 mg Subcut aneous as needed PRN Injec t 1 mg subcu taneo usly as neede d for hypog lycem ic beau col Speci al instr uctio ns: Gluca gen 1 mg hypok it subcu taneo us if FSBS below 60 and unabl e to swall ow. R echec k FSBS in 10 minut es and updat e provi ruddy. 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 [address] active 3 CALCULUS OF BILE DUCT WITHOUT CHOLANGITIS OR CHOLECYSTITIS WITHOUT OBSTRUCTION [address] active 4 CALCULUS OF GALLBLADDER WITHOUT CHOLECYSTITIS WITHOUT OBSTRUCTION [address] active 5 ESSENTIAL (PRIMARY) HYPERTENSION [address] active 6 FALL FROM MOTORIZED MOBILITY SCOOTER, SUBSEQUENT ENCOUNTER [address] active 7 FATTY (CHANGE OF) LIVER, NOT ELSEWHERE CLASSIFIED [address] active 8 HYPERLIPIDEMIA, UNSPECIFIED [address] active 9 INJURY, UNSPECIFIED, SUBSEQUENT ENCOUNTER [address] active 10 LACERATION WITHOUT FOREIGN BODY OF SCALP, SEQUELA [address] active 11 LACERATION WITHOUT FOREIGN BODY OF SCALP, SUBSEQUENT ENCOUNTER [address] active 12 WIRE SAWYER (CURRENT) USE OF INSULIN [address] active 13 CARE HOME (CURRENT) USE OF ORAL HYPOGLYCEMIC DRUGS [address] active 14 LONG-TERM (CURRENT) USE OF INJECTABLE NON-INSULIN ANTIDIABETIC DRUGS [address] active 15 MUSCLE WEAKNESS (GENERALIZED) [address] active 16 OTHER ABNORMAL BOWEL SOUNDS [address] active 17 OTHER ABNORMALITIES OF GAIT AND MOBILITY [address] active 18 OTHER SPECIFIED ABNORMAL FINDINGS OF BLOOD CHEMISTRY [address] active 19 POLYNEUROPATHY, UNSPECIFIED [address] active 20 SYSTEMIC INFLAMMATORY RESPONSE SYNDROME (SIRS) OF NON-INFECTIOUS ORIGIN WITHOUT ACUTE ORGAN DYSFUNCTION [address] active 21 TYPE 2 DIABETES MELLITUS WITH DIABETIC NEUROPATHY, UNSPECIFIED [address] active 22 TYPE 2 DIABETES MELLITUS WITHOUT COMPLICATIONS [address] active 23 UNSPECIFIED FALL, SUBSEQUENT ENCOUNTER [address] active 24 WEAKNESS [address] active Reason for Referral No Reasons for Referral Entered Social History Social History Observation Description Start Date End Date Code Code System Current Smoking Status Tobacco smoking consumption unknown 671207084 SNOMED CT Sex Assigned At Male 1945 34010-4 [facility] Gender Identity Sexual Orientation Vital Signs Code Code System Vitals Name Values and Units Timing Information 85488-9 [facility] Pain Level Value=0.0 06/12/2024 57467-2 [facility] Weight Fduaj=912.8 Units=Lbs 9279-1 [facility] Respiratory Rate Value=18.0 Units=/m in 05/29/2024 8462-4 [facility] Blood Pressure-Diastolic Value=60 Un its=mmHg 05/29/2024 8480-6 [facility] Blood Pressure-Systolic Sruka=323 Un its=mmHg 05/29/2024 8310-5 [facility] Body Temperature Value=97.3 Units= F 05/29/2024 8867-4 [facility] Heart rate Value=61.0 Units=/min 03/2024 55379-6 [facility] O2 % BldC Oximetry Value=94.0 Units= % 05/29/2024 2339-0 [facility] Blood Sugar Jsfhi=650.0 Units=mg/dL 05/25/2024 8302-2 [facility] Height Value=67.0 Units=Inches 05/25/2024
== END 2025-08-17 16:35 | disposition home or self-care (01) ==
LOC: HO.HMCH 15:34
PROVIDERS: PCP Internal Medicine; Visit Provider Internal Medicine
DX: Z00.00 Encounter for general adult medical examination without abnormal findings (principal); E11.65 Type 2 diabetes mellitus with hyperglycemia

== ENCOUNTER → 2025-08-17 15:34 | Outpatient (BNVA) | payer OTHER, SELFPAY | PROVIDERS: PCP Internal Medicine; Visit Provider Internal Medicine | DX: Z00.00 Encounter for general adult medical examination without abnormal findings (principal); E11.65 Type 2 diabetes mellitus with hyperglycemia; Z79.4 Long term (current) use of insulin; Z79.84 Long term (current) use of oral hypoglycemic drugs; Z79.899 Other long term (current) drug therapy | CPT/HCPCS: 99397 ==

== ENCOUNTER 2025-09-07 09:06 | Outpatient (AMB) | payer OTHER, SELFPAY ==
--- NOTE | 2025-09-07 09:17 | MHC.OFFVIS ---
Vital Signs 09/07/25 09:18 Height 5 ft 7 in Weight 229 lb BMI 35.9 Intake Visit Reasons: New patient- diabetic foot exam Intake Note: Diogo is a 79 year old male who presents today as a New Patient for a diabetic foot exam. He reports his sugars are curently at 98 and his last reported A1c was 6.8 as of 04/20/25. Pt denies numbness, tingling, or burning in his feet as well he has not experienced any nausea, vomiting , dizziness or headaches recently. He has no recent wounds or history of amputation to his feet. Allergies No Known Allergies (No Known Allergies*) Allergy (Verified 09/07/25 09:18) HPI HPI New patient- diabetic foot exam: Details: 79-year-old male past medical history of diabetes mellitus type 2, hyperlipidemia, hypertension who presents for annual diabetic foot evaluation and painful nails. He states he was seeing another appraisal technician in [place] for routine foot care however the appraisal technician had retired. Today, patient states his fasting blood glucose has a proximally 96. He denies any complains of burning numbness or tingling to his feet. Denies any pedal pain or complaints. Denies swelling to his extremities. Denies any history of wounds or ulcerations. [facility] Medical History Controlled type 2 diabetes mellitus with insulin therapy Hypovitaminosis D History of prostate cancer Diabetes Pure hypercholesterolemia Essential hypertension Surgical History History of colonoscopy Family History Father Murder Mother No problems noted. Daughter Healthy adult Brother No problems noted. Sister No problems noted. Son No problems noted. Social History Household Members: None Housing: Apartment Are you a primary tire care manager to a significant other at home: No Do you presently have visiting nurse or other home services: No Alcohol intake: never Patient Tobacco Use Status: Never used Tobacco e-Cigarette/Vaping Use: Never Used Second Hand Smoke Exposure: No service: No Current occupational status: retired Cognitive needs: Yes (CANE) Hearing needs: No Vision needs: Yes Review of Systems Const All systems reviewed & are unremarkable except as noted in HPI and below Physical Exam Vital Signs: BMI result Body Mass Index 35.9 Extrem Other: *Bilateral Lower Extremity Focused Diabetic Foot Exam Vascular: DP/PT 2/4, CFT<3s to digits, TG warm to cool, no pedal edema, pedal hair absent Derm: Skin: Diffuse annual scaling plantar left foot Interdigital spaces: Clear, no maceration or fungal infection. Nails: Thickened elongated dystrophic toenails x10 with subungual debris. medial and lateral borders bilateral hallux with ingrown incurvated nails. no erythema drainage or signs of infection. Neuro: Sandstone-mariaelena monofilament (10g) test 10/10 intact to right foot, 10/10 intact to left foot. Msk: Deformities: No evidence of hammertoes, bunions, Charcot changes, or other structural abnormalities. Muscle strength: 5/5 in all muscle groups. Gait: Normal, no antalgic or steppage gait observed. Footwear Assessment: Shoes inspected; appropriate fit, no excessive wear, or foreign objects noted. Office Procedures AMB Debridement/Avulsion Podia Details: Procedure: Nail debridement Location: 10 nails bilateral feet Anesthesia: N/A Description: The affected toenails were cleansed with an antiseptic solution. Using sterile nail nippers and a rotary jerry, dystrophic and mycotic nail material was carefully debrided and reduced in thickness. Care was taken to avoid trauma to the surrounding skin and nail bed. All debris was removed as tolerated. The area was inspected for signs of infection or ulceration. Patient tolerated the procedure well without complications. Tolerance: Patient tolerated procedure well, no immediate complications. Class a and B findings as per physical exam findings above. The patient has a diagnosis of diabetes mellitus and presents with elongated, thickened toenails. Due to underlying diabetic neuropathy and mild vascular disease findings, the patient is at increased risk for complications such as ulceration, infection, and difficulty with self-care. Debridement of elongated toenails is medically necessary to prevent development of pressure-related lesions, reduce risk of secondary infection, and maintain foot health in high-risk comorbidities. 84273-Xyeomedrqjw of Nail 6+ Procedure code (CPT) selection complete Results Reviewed Results Reviewed: Laboratory Tests 04/20/25 15:37 Hgb A1c (Clinic) 6.8 H Assessment & Plan Assessment & Plan (1) DMII (diabetes mellitus, type 2): Code(s): E11.9 - Type 2 diabetes mellitus without complications Category: Medical Qualifiers: Diabetes mellitus detention insulin use: without detention use Diabetes mellitus complication status: with hyperglycemia Qualified Code(s): E11.65 - Type 2 diabetes mellitus with hyperglycemia Plan: Risk Stratification: No current ulceration, infection, or pre-ulcerative lesion. No loss of protective sensation or peripheral arterial disease. No plans for further testing/referrals for non-invasive vascular studies. Patient is at low risk for diabetic foot complications at this time. Recommendations: Continue routine foot care and daily self-inspection. Recommend moisturizing daily. Recommend supportive proper fitting shoe-wear. The patient may require diabetic shoes in the future. Reinforced diabetic foot education and risks from peripheral neuropathy. 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 Patient tolerated procedure well. There was slight bleeding upon debridement to the left 3rd toe nail, this was cauterized and hemostasis was achieved immediately. Follow up in 9 weeks Orders: Orders AMB Debridement/Avulsion Podiatry Today L60.2 - Onychogryphosis Medications: New clotrimazole 1% Applied to the bottom of feet twice a day. 1 appl topical BID 30 grams 3RF Athlete's foot B35.3 - Tinea pedis Coding Level of Care Code New Pt Level 4 (38124) Diagnoses Type 2 diabetes mellitus with hyperglycemia, without long-term current use of insulin E11.65 Diabetes mellitus bed bug exterminator insulin use: without bed bug exterminator use Diabetes mellitus complication status: with hyperglycemia Tinea pedis of left foot B35.3 Laterality: left Onychogryphosis L60.2 CPT Codes Skin Debridement - CPT: 88431-Gszjixydujk of Nail 6+ ([id number]) Time Spent (min) 25
[2025-09-07 09:18] VITALS: BMI 35.9
== END 2025-09-07 09:39 | disposition home or self-care (01) ==
LOC: HO.HPODS 09:07
PROVIDERS: PCP Internal Medicine; Visit Provider Student in an Organized Health Care Education/Training Program
DX: B35.3 Tinea pedis (principal); L60.2 Onychogryphosis; E11.65 Type 2 diabetes mellitus with hyperglycemia
CPT/HCPCS: 11721; 99204

== ENCOUNTER → 2025-09-07 09:06 | Outpatient (BNVA) | payer OTHER, SELFPAY | PROVIDERS: PCP Internal Medicine; Visit Provider Student in an Organized Health Care Education/Training Program | DX: E11.65 Type 2 diabetes mellitus with hyperglycemia (principal); B35.3 Tinea pedis; L60.2 Onychogryphosis | CPT/HCPCS: 11721; 99202 ==

== ENCOUNTER 2025-10-04 14:41 | Outpatient (AMB) | payer OTHER, SELFPAY ==
--- NOTE | 2025-10-04 14:45 | A.OFFVIS_ITS ---
Vital Signs 10/04/25 14:50 Height 5 ft 7 in Weight 229 lb 4.492 oz BMI 35.9 BP 120/70 Blood Pressure Location Rt brachial Position Sitting Pulse 105 H Pulse Source Pulse Oximeter Pulse Oximetry (%) 95 Oxygen Delivery Method Room Air Intake Visit Reasons: DM Intake Note: Patient present today to follow up on Type 2 Diabetes Mellitus. Patient receives Freestyle Carlie 2 supplies through: [employer], requesting upgrade to Carlie 3 Plus. Last Diabetic Eye exam: Patient stated yes, last appt on 2024 Last Podiatry Visit: Does not see a Straddle Buggy Operator Random Glucose: 160 mg/dL HgA1C: 6.7%, 10/04/2025 Soap Boiler Required: No Soap Boiler Services: Soap Boiler Offered & Declined Soap Boiler Name: Son-in-law Accompanied by: Son-in-law Allergies No Known Allergies (No Known Allergies*) Allergy (Verified 10/04/25 14:47) Medication List - Last Reconciled 10/04/25 by Sahil Kc MD [3 inch riser enlongated toilet seat As directed] atorvastatin 80 mg PO BEDTIME 90 days blood pressure monitor As directed blood sugar diagnostic (FreeStyle Lite Strips) 1 strip miscellaneous TID blood-glucose meter (FreeStyle Lite Meter kit) As directed blood-glucose meter (FreeStyle [place] kit) As directed blood-glucose sensor (FreeStyle Carlie 3 Plus Sensor device) Use daily As directed to monitor glucose blood-glucose,road machinery inspector,cont (FreeStyle Carlie 3 [place]) Use daily As directed to monitor blood glucose cane As directed cholecalciferol (vitamin D3) 25 mcg PO DAILY 90 days clotrimazole 1% 1 appl topical BID dulaglutide (Trulicity) 3 mg (0.5 mL) subcut QWEEK empagliflozin (Jardiance) 25 mg PO QAM 90 days furosemide 20 mg PO Q OTHER DAY 90 days gabapentin 100 mg PO DAILY Grabber As directed insulin degludec (Tresiba FlexTouch U-100 insulin) 15 units (0.15 mL) subcut BEDTIME lancets (FreeStyle Lancets) Use 1 lancet three times a day lisinopril 5 mg PO DAILY 90 days metformin 1,000 mg PO BID pen needle, diabetic (BD Kesha 2nd Gen Pen Needle) As directed injects once a day [powerlift recliner As directed] [reflecting vest As directed] [Scooter- 4 wheeled As directed] trazodone 50 mg PO BEDTIME PRN 30 days Ventolin HFA 90 mcg/actuation (albuterol sulfate) 2 puffs inhalation Q6H PRN 30 days NS walker As directed walker (Ultra-Light Rollator misc) As directed HPI Comments Details: 79 YO M who is seen in consultation for T2DM at the request of PCP. Initially diagnosed with T2DM in for 20 yrs . Was initially started on treatment with metformin. Current regimen Trulicity 3 mg Qwkly Jardiance 25 mg metformin 1000 mg BID. Lantus 15 units Carlie download shows he is using the sensor 56% of the time. Average glucose is 113 with variability 16.1%. 100% range with 2% hyperglycemia and no hypoglycemia Denies any hypoglycemia Family history of T2DM in sister . Has eyes checked yearly, last eye exam appt 08/2025 , denies retinopathy. Denies neuropathy, , sees podiatry. Denies nephropathy, on HERLINDA/ARB. Has HLD, on statin. . Denies CAD. saw diabetes education. [facility] Medical History Controlled type 2 diabetes mellitus with insulin therapy Hypovitaminosis D History of prostate cancer Diabetes Pure hypercholesterolemia Essential hypertension Surgical History History of colonoscopy Family History Father Murder Mother No problems noted. Daughter Healthy adult Brother No problems noted. Sister No problems noted. Son No problems noted. Social History Household Members: None Housing: Apartment Are you a primary caretaker resort to a significant other at home: No Do you presently have visiting nurse or other home services: No Alcohol intake: never Patient Tobacco Use Status: Never used Tobacco e-Cigarette/Vaping Use: Never Used Second Hand Smoke Exposure: No service: No Current occupational status: retired Cognitive needs: Yes (CANE) Hearing needs: No Vision needs: Yes Physical Exam Vital Signs: Last Vital Signs Pulse 105 H 10/04/25 14:50 BP 120/70 10/04/25 14:50 Pulse Ox 95 10/04/25 14:50 Oxygen Delivery Method Room Air 10/04/25 14:50 BMI result Body Mass Index 35.9 Absence of Cushingoid features. Absence of acromegalic features. Neck exam reveals nl size thyroid about 15 gms. No thyroid nodules palpable. No carotid bruits present. Lungs CTA. Heart S1 S2, Reg R/R. No M/R/ G. Skin exam reveals absence of vitiligo or acanthosis nigricans. Abdominal exam reveals Soft NT/ND with NA BS. No organomegaly present. Neck Other: . Extrem Other: Visual exam of foot performed. No ulcerations or open lesions. No onchomycosis, no callouses.Pulses 2 + distally Sensation decreasedto monofilament exam. Vibratory sensation sensed is intact with 128 Hz tuning fork Results AMB Hemoglobin A1c AMB Hemoglobin A1c 6.7 % Last Edit by TWILA Starks on 10/04/25 15:08 Results Reviewed Results Reviewed: Laboratory Last Values Glucose (Clinic) 160 mg/dL (60-115) H 10/04/25 14:55 Hgb A1c (Clinic) 6.7 % (4.0-6.0) H 10/04/25 14:58 Assessment & Plan Assessment & Plan (1) DMII (diabetes mellitus, type 2): Code(s): E11.9 - Type 2 diabetes mellitus without complications Category: Medical Qualifiers: Diabetes mellitus complication status: with hyperglycemia Diabetes mellitus shelter insulin use: without shelter use Qualified Code(s): E11.65 - Type 2 diabetes mellitus with hyperglycemia Plan: This is a 77-year-old male with a history of type 2 diabetes being treated with metformin, Jardiance and Trulicity and basal insulin with excellent glycemic control and no known microvascula edwards macrovascular complications Plan is to continue the current regimen.. He can follow up with primary care diabetes team in 6 months Orders: Orders AMB Hemoglobin A1c Today E11.9 - Type 2 diabetes mellitus without complications, Z79.4 - FPC (current) use of insulin Coding Level of Care Code Est Pt Level 4 (57669) Complex EM visit Add On G2211 Diagnoses Type 2 diabetes mellitus with hyperglycemia, without long-term current use of insulin E11.65 Diabetes mellitus complication status: with hyperglycemia Diabetes mellitus intermodal truck driver insulin use: without shelter use
[2025-10-04 14:50] VITALS: BP 120/70; PULSE 105; O2SAT 95; BMI 35.9
[2025-10-04 14:59] LABS: Glucose, Whole Blood 160 mg/dL (60-115)
== END 2025-10-04 15:28 | disposition home or self-care (01) ==
LOC: HO.ENCR 14:41
PROVIDERS: PCP Internal Medicine; Visit Provider Internal Medicine Endocrinology, Diabetes & Metabolism
DX: E11.9 Type 2 diabetes mellitus without complications (principal); Z79.4 Long term (current) use of insulin; E11.65 Type 2 diabetes mellitus with hyperglycemia
CPT/HCPCS: 99214; G2211

== ENCOUNTER → 2025-10-04 14:41 | Outpatient (BNVA) | payer OTHER, SELFPAY | PROVIDERS: PCP Internal Medicine; Visit Provider Internal Medicine Endocrinology, Diabetes & Metabolism | DX: E11.65 Type 2 diabetes mellitus with hyperglycemia (principal) | CPT/HCPCS: 82947; 83036; 99212 ==

== ENCOUNTER 2025-11-09 08:33 | Outpatient (AMB) | payer OTHER, SELFPAY ==
--- NOTE | 2025-11-09 08:39 | MHC.OFFVIS ---
Vital Signs 11/09/25 08:41 Height 5 ft 7 in Weight 229 lb BMI 35.9 Intake Visit Reasons: diabetic foot exam Intake Note: Diogo is a 79 year old male who presents today for a diabetic foot exam follow up. At his last visit his toe nails where debrided and he was prescribed clotrimazole to treat his tinea pedis. Patient reports everything is going well and he has been using the clotrimazole medication as prescribed. No questions or concerns at this time. Allergies No Known Allergies (No Known Allergies*) Allergy (Verified 11/09/25 08:41) HPI HPI diabetic foot exam: Details: 79-year-old male past medical history of diabetes mellitus type 2, hyperlipidemia, hypertension who returns for annual diabetic foot evaluation and painful nails. He denies any complains of burning numbness or tingling to his feet. Denies any pedal pain or complaints. Denies swelling to his extremities. Denies any history of wounds or ulcerations. [facility] Medical History Controlled type 2 diabetes mellitus with insulin therapy Hypovitaminosis D History of prostate cancer Diabetes Pure hypercholesterolemia Essential hypertension Surgical History History of colonoscopy Family History Father Murder Mother No problems noted. Daughter Healthy adult Brother No problems noted. Sister No problems noted. Son No problems noted. Social History Household Members: None Housing: Apartment Are you a primary home care manager to a significant other at home: No Do you presently have visiting nurse or other home services: No Alcohol intake: never Patient Tobacco Use Status: Never used Tobacco e-Cigarette/Vaping Use: Never Used Second Hand Smoke Exposure: No service: No Current occupational status: retired Cognitive needs: Yes (CANE) Hearing needs: No Vision needs: Yes Review of Systems Const All systems reviewed & are unremarkable except as noted in HPI and below Physical Exam Vital Signs: BMI result Body Mass Index 35.9 Extrem Other: *Bilateral Lower Extremity Focused Diabetic Foot Exam Vascular: DP/PT 2/4, CFT<3s to digits, TG warm to cool, no pedal edema, pedal hair absent Derm: Skin: diffuse xerosis/dry skin plantar left foot Interdigital spaces: Clear, no maceration or fungal infection. Nails: Thickened elongated dystrophic toenails x10 with subungual debris. medial and lateral borders bilateral hallux with ingrown incurvated nails. no erythema drainage or signs of infection. Neuro: Corydon-mariaelena monofilament (10g) test 10/10 intact to right foot, 10/10 intact to left foot. Msk: Deformities: No evidence of hammertoes, bunions, Charcot changes, or other structural abnormalities. Muscle strength: 5/5 in all muscle groups. Gait: Normal, no antalgic or steppage gait observed. Footwear Assessment: Shoes inspected; appropriate fit, no excessive wear, or foreign objects noted. Office Procedures AMB Debridement /Avulsion Details: Procedure: Nail debridement Location: 10 nails, bilateral feet Anesthesia: N/A Description: The affected toenails were cleansed with an antiseptic solution. Using sterile nail nippers and a rotary jerry, dystrophic and mycotic nail material was carefully debrided and reduced in thickness. Care was taken to avoid trauma to the surrounding skin and nail bed. All debris was removed as tolerated. The area was inspected for signs of infection or ulceration. Patient tolerated the procedure well without complications. Tolerance: Patient tolerated procedure well, no immediate complications. Class B findings as per physical exam findings above. The patient has a diagnosis of diabetes mellitus type 2 and presents with elongated, thickened toenails. The patient is at increased risk for complications due to his ingrown nails which could lead to ulceration, infection, and difficulty with self-care. Debridement of elongated toenails is medically necessary to prevent development of pressure-related lesions, reduce risk of secondary infection, and maintain foot health in high-risk comorbidities. [id number] of Nail 6+ Procedure code (CPT) selection complete Assessment & Plan Assessment & Plan (1) DMII (diabetes mellitus, type 2): Code(s): E11.9 - Type 2 diabetes mellitus without complications Category: Medical Qualifiers: Diabetes mellitus marine oil terminal superintendent insulin use: with senior living use Diabetes mellitus complication status: with skin complications Diabetes mellitus complication detail: with other skin complication Qualified Code(s): E11.628 - Type 2 diabetes mellitus with other skin complications; Z79.4 - ad terminal makeup operator (current) use of insulin Plan: educated patient at risks of pedal complications from diabetes (2) Tinea pedis: Code(s): B35.3 - Tinea pedis Category: Medical Qualifiers: Laterality: left Qualified Code(s): B35.3 - Tinea pedis Plan: No improvement from clotrimazole Rx amlactin for possible xerosis (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 Patient tolerated procedure well. There was slight bleeding upon debridement to the left 3rd toe nail, this was cauterized and hemostasis was achieved immediately. Follow up in 9 weeks Coding Level of Care Code Est Pt Level 3 (30693) Diagnoses Type 2 diabetes mellitus with other skin complication, with long-term current use of insulin E11.628; Z79.4 Diabetes mellitus marine oil terminal superintendent insulin use: with marine oil terminal superintendent use Diabetes mellitus complication status: with skin complications Diabetes mellitus complication detail: with other skin complication Tinea pedis of left foot B35.3 Laterality: left Onychogryphosis L60.2 Time Spent (min) 10
[2025-11-09 08:41] VITALS: BMI 35.9
== END 2025-11-09 08:56 | disposition home or self-care (01) ==
LOC: HO.HPODS 08:34
PROVIDERS: PCP Internal Medicine; Visit Provider Student in an Organized Health Care Education/Training Program
DX: E11.628 Type 2 diabetes mellitus with other skin complications (principal); Z79.4 Long term (current) use of insulin; B35.3 Tinea pedis; L60.2 Onychogryphosis
CPT/HCPCS: 99213

== ENCOUNTER → 2025-11-09 08:33 | Outpatient (BNVA) | payer OTHER, SELFPAY | PROVIDERS: PCP Internal Medicine; Visit Provider Student in an Organized Health Care Education/Training Program | DX: E11.628 Type 2 diabetes mellitus with other skin complications (principal); Z79.4 Long term (current) use of insulin; B35.3 Tinea pedis; L60.2 Onychogryphosis | CPT/HCPCS: 11721; 99212 ==